=== PATIENT | male | born 1975 | race Hispanic/Latino ===

== ENCOUNTER 2019-07-21 11:55 | Inpatient (IN) | payer SELFPAY ==
[2019-07-21 12:50] LABS: #Basophils 0.1 thou/uL (0.0-0.2); #Eosinphils 0.2 thou/uL (0.0-0.7); #Lymphocytes 1.3 thou/uL (1.20-3.40); #Monocytes 0.4 thou/uL (0.11-0.59); #Neutrophils 4.4 thou/uL (1.40-6.50); %Basophils 1.2 % (0.0-1.0); %Eosinophils 3.5 % (0.0-10.0); %Lymphocytes 19.8 % (21.0-51.0); %Monocytes 6.7 % (0.0-10.0); %Neutrophils 68.8 % (42.0-75.0); Hemoglobin 7.9 g/dL (14.0-18.0); Mean Corpuscular HGB CONC 34.2 g/dL (32.0-36.0); Mean Corpuscular Hemoglobin 30.3 pg (27.0-31.0); Mean Corpuscular Volume 88.7 fL (78.0-98.0); Mean Platelet Volume 7.2 fL (7.4-10.4); Platelet Count 288 thou/uL (130-400); RBC Distribution Width 12.9 % (11.5-14.5); Red Blood Cell (RBC) Count 2.62 mill/uL (4.70-6.10); White Blood Cell (WBC) Count 6.4 thou/uL (4.8-10.8)
[2019-07-21 13:14] LABS: ALT (SGPT) 9 U/L (8-55); AST (SGOT) 12 U/L (5-34); Albumin 3.2 g/dL (3.5-5.0); Alkaline Phosphatase 131 U/L (40-150); Anion Gap 19 mmol/L (10-20); BUN (Urea Nitrogen) 112 mg/dL (8.9-20.6); Bilirubin, Total 0.3 mg/dL (0.2-1.2); Calc. Creatinine Clearance 0 mL/min (70-130); Calcium 6.4 mg/dL (7.8-10.44); Carbon Dioxide 13 mmol/L (22-29); Chloride 110 mmol/L (98-107); Estimated GFR-MDRD 6; Globulin 2.6 g/dL (2.4-3.5); Glucose 130 mg/dL (70-105); Potassium 5.8 mmol/L (3.5-5.1); Protein, Total 5.8 g/dL (6.0-8.3); Sodium 136 mmol/L (136-145)
[2019-07-21] MEDS ORDERED: CEFAZOLIN 2 GM in Premix Bag 1 BAG IVPB SCH (14:30)
--- NOTE | 2019-07-21 14:30 | CON ---
DATE OF CONSULTATION: REASON FOR CONSULTATION: Hyperkalemia. HISTORY OF PRESENTING ILLNESS: This is a very pleasant 44-year-old gentleman, being seen in the [facility] with progressive rise in creatinine due to diabetes mellitus. His baseline creatinine was 1.8, has progressively increased to 9. The patient has no headache, numbness, tingling, or weakness. Denies any nausea, vomiting, or chest pain. PAST MEDICAL HISTORY: Hypertension, hyperlipidemia, chronic kidney disease. MEDICATIONS: Home medication list, reviewed. Hospital medication list, reviewed. ALLERGIES: REVIEWED. REVIEW OF SYSTEMS: A 15-point review of system was performed, negative except for positive noted above. GENERAL: Appetite is poor. HEAD: NECK: No swelling or lumps. NOSE: No epistaxis or discharge. EYES: No diplopia or pain. RESPIRATORY: CARDIOVASCULAR: Has dyspnea on minimal exertion. 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 NEUROPSYCHIATIC SYSTEMS: No suicidal ideation. No ideation. SKIN: Denies any rash or ulcer. CONSTITUTIONAL: No fever or chills. PHYSICAL EXAMINATION: GENERAL: The patient is awake and alert. VITAL SIGNS: Afebrile, pulse 75, breathing 16, blood pressure was 160/70. GENERAL APPEARANCE AND MENTAL STATUS: Fair. HEAD/NECK: Normocephalic. Atraumatic. EYES: EOMI. No deformity. EARS: Clear. No ulcers. NOSE: Intact. No lesions. MOUTH: Clear. No discharge. THROAT: Clear. No exudate. LUNGS: Clear. No crackles. CARDIAC: S1, S2. No rub. ABDOMEN: Benign. Bowel sounds positive. GENITALIA/RECTUM: Ardon absent. BACK/EXTREMITIES: He has edema. NEUROLOGICAL: Alert and motor intact. SKIN: LYMPHATICS: LABORATORY DATA: Showed creatinine 9. ASSESSMENT AND PLAN: 1. Stage 6 chronic kidney disease with hyperkalemia, plan urgent dialysis. 2. Hyperkalemia, plan dialysis. 3. Metabolic acidosis, plan dialysis. The patient will need outpatient consultation for peritoneal dialysis catheter placement. Job ID: [id number]
[2019-07-21 14:32] LABS: INR-International Normal Ratio 1.4; PTT 31.8 SEC (22.9-36.1); Prothrombin Time 16.8 SEC (12.0-14.7)
[2019-07-21 17:42] LABS: Hep B Surf Ag Non-Reactive S/CO (NonReactive)
[2019-07-21 17:43] LABS: HBSAg Index 0.13 S/CO (0-0.99); Hep B Surf AB Non-Reactive (NonReactive)
[2019-07-21 17:44] LABS: HBSAB Concentration 0.13 mIU/mL
--- NOTE | 2019-07-21 17:49 | OP ---
DATE OF PROCEDURE: 07/21/2019 PREOPERATIVE DIAGNOSES: End-stage renal disease, not yet started dialysis. Hyperkalemia, potassium 5.8, in need of acute dialysis. POSTOPERATIVE DIAGNOSES: End-stage renal disease, not yet started dialysis. Hyperkalemia, potassium 5.8, in need of acute dialysis. PROCEDURE PERFORMED: Right femoral vein hemodialysis catheter, Trialysis. ANESTHESIA: 1% Xylocaine. DESCRIPTION OF PROCEDURE: With the patient at bedside, right groin was clipped of hair, prepared with ChloraPrep and draped in routine fashion. 1% Xylocaine was infiltrated in the skin and subcutaneous tissue about the operative site. Femoral vein was cannulated with a trocar catheter, J-wire threaded, and trocar catheter removed. Skin site was enlarged sharply. Small and medium size dilators were placed and removed in the femoral vein. Distal port of the Trialysis catheter was placed with a J-wire in the femoral vein and J-wire removed. Each port filled with blood and flushed with heparinized saline solution. Catheter was secured with 2 interrupted suture of 3-0 nylon. Sterile dressing applied. The patient tolerated the procedure well. Job ID: [id number]
[2019-07-21] MEDS ORDERED: Dextrose 50% Abboject 50 ML SYRINGE SLOW IVP PRN (18:37)
[2019-07-21] MEDS ORDERED: Dextrose 5% in Water 1,000 ML IV PRN (18:37)
[2019-07-21] MEDS ORDERED: HumaLOG 300 UNITS/3 ML VIAL SC PRN (18:37)
[2019-07-21] MEDS ORDERED: Senokot S 8.6-50 MG TAB PO PRN (18:40)
[2019-07-21] MEDS ORDERED: Acetaminophen 325 MG TAB PO PRN (18:40)
[2019-07-21] MEDS ORDERED: HYDROcodone/Acetaminophen 5/325 mg Tablet PO PRN (18:40)
[2019-07-21] MEDS: cloNIDine 0.1 MG TAB PO PRN (20:05)
--- NOTE | 2019-07-21 22:38 | HP ---
HISTORY OF PRESENT ILLNESS: Wilson Noyola is a 44-year-old male, who presented to the emergency room. He saw his family care physician, who referred him to Dr. Antonio, who sent him immediately to the emergency room due to worsening kidney failure in need of dialysis access. His potassium is 5.8. Plan is to place temporary dialysis catheter today and initiate dialysis and a cuffed tunneled dialysis catheter and central line tomorrow. Next, we will plan laparoscopic PD catheter in right or left arm fistula pending vein mapping. He understands the risks and benefits of procedure and consents. ALLERGIES: NONE. SOCIAL HISTORY: Tobacco, none. Alcohol, none for 3 years, abused prior to that. MEDICATIONS: List not available. PAST SURGICAL HISTORY: Noncontributory. PAST MEDICAL HISTORY: Diabetes mellitus, insulin dependent; and hypertension. REVIEW OF SYSTEMS: Ten-point noncontributory. The patient is , lives alone. 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 PHYSICAL EXAMINATION: VITAL SIGNS: Blood pressure 147/73 and respiratory rate 18. HEAD, EARS, EYES, NOSE, AND THROAT: Unremarkable. Sclerae are nonicteric. SKIN: Nonjaundiced. LUNGS: Clear to auscultation. CARDIAC: Regular rate and rhythm. No murmur or gallop. ABDOMEN: Soft and nontender. No mass. No umbilical hernias. No groin hernias. EXTREMITIES: Unremarkable. Palpable radial pulses bilaterally. LABORATORY DATA: White count 6 and hemoglobin 7.9. Sodium 136, potassium 5.8, BUN 112, creatinine 10.35, and GFR 6. ASSESSMENT AND PLAN: End-stage renal disease, in need of dialysis access. We will plan placement of a temporary hemodialysis catheter at bedside to initiate dialysis tonight due to potassium of 5.8. We will plan placement of cuffed tunneled hemodialysis catheter tomorrow as well as central line to protect his veins. We will obtain ultrasound vein mapping of both arms and plan placement of a left or right arm fistula and laparoscopic PD catheter next week. Risks and benefits explained and questions answered. Job ID: [id number]
[2019-07-21] MEDS: Labetalol HCl 100 MG/20 ML VIAL SLOW IVP PRN (23:07)
--- NOTE | 2019-07-22 00:19 | ULT ---
Ultrasound Doppler duplex venous bilateral upper extremities: (Hemodialysis access surgical planning vessel mapping) DATE: 07/21/2019 Time: 10:54 PM HISTORY: 44-year-old end-stage renal disease male requiring hemodialysis access. FINDINGS: Calibers are given in millimeters RIGHT: Brachial artery: 5.5 Radial artery: 2 Ulnar artery: 2 Cephalic vein: Proximal arm: 2 Mid arm: 2 Distal arm: 2 Antecubital: 3.5 Proximal forearm: 1.5 Mid forearm: 1.5 Distal forearm: 1.5 Basilic vein: Proximal arm: 4.5 Mid arm: 4 Distal arm: 4 Antecubital: 3.5 Proximal forearm: 2 Mid forearm: 1.5 Forearm: 1 LEFT: Brachial artery: 4.5 Radial artery: 2 Ulnar artery: 2 Cephalic vein: Proximal arm: 2.5 Mid arm: 2.5 Distal arm: 3. Antecubital: 5 Proximal forearm: 1.5 Mid forearm: 2 Distal forearm: 1.5 Basilic vein: Proximal arm: 4.5 Mid arm: 3.5 Distal arm: 4 Antecubital: 3 Proximal forearm: 2 Mid forearm: 1 Distal forearm: 1 IMPRESSION: The bilateral arm basilic veins are greater than 3 mm in caliber.
--- NOTE | 2019-07-22 01:35 | HP ---
CHIEF COMPLAINT: Decreased kidney function. PRIMARY CARE PROVIDER: Dr. Arrington. HISTORY OF PRESENT ILLNESS: This is a very pleasant 44-year-old gentleman seen Dr. Antonio in the clinic for chronic kidney disease, noted to have progression in the rise of his creatinine due to diabetes mellitus. His baseline creatinine was 1.8 and has progressively increased to 9. The patient denies any headache, numbness, tingling, weakness, any nausea, vomiting, or chest pain. Past medical history is pertinent for hypertension, hyperlipidemia, and chronic kidney disease, was sent to the emergency room today for emergent dialysis catheter placement and dialysis by Dr. Antonio's office, Doctor mika did see the patient in the emergency room and placed a right femoral vein hemodialysis catheter and he was taken to dialysis tonight. Dr. Meier requested the patient be taken to dialysis in the morning as well. Dr. Meier plans to take him to the OR tomorrow for potentially a new or more permanent catheter for hemodialysis and then at some point be evaluated for peritoneal dialysis catheter placement. The patient will be admitted to the hospital for further management. REVIEW OF SYSTEMS: GENERAL: Poor appetite. Denies any shortness of breath. Reports that he is in no distress. Has no pain. Denies any cough, cold, or congestion. All other systems reviewed and are negative unless mentioned in the HPI. PAST MEDICAL HISTORY: Pertinent for diabetes type 2 on insulin and hypertension. He is not currently aware of his medications that he takes. PAST SURGICAL HISTORY: None. PSYCHIATRIC HISTORY: None. SOCIAL HISTORY: The patient lives at home. He has no smoking history. Denies any alcohol or drug use. ALLERGIES: NONE. MEDICATIONS: Current medications what he is aware of; he takes Novolin R 10 units b.i.d., also reports that he takes two medications for his blood pressure, but he is not sure which ones they are. These will need to be reconciled and restarted. PHYSICAL EXAMINATION: VITAL SIGNS: Blood pressure 153/87, pulse 78, respirations 17, temperature is 97.4, and pO2 sats 100% on room air. GENERAL: The patient appears nontoxic. The patient appears pain free. He is alert and oriented to person, place, and time. HEENT: Head is atraumatic and normocephalic. Eyes; eyelids normal to inspection. Pupils are equal, round, and reactive to light. ENT; mucous membranes are moist. Mouth exam is normal. NECK: Normal range of motion. Trachea is midline. RESPIRATORY/CHEST: Breath sounds are clear. No findings of any respiratory distress. CARDIOVASCULAR: Regular heart rate and rhythm. Heart sounds are normal. ABDOMEN: Nontender. Bowel sounds are heard. BACK: Normal range of motion. No tenderness. EXTREMITIES: Upper extremity; range of motion is normal. Motor strength is normal. Sensation intact. Radial pulses are equal bilaterally. Lower extremity, normal range of motion. Motor strength is normal. Sensation intact. Pedal pulses are normal. NEUROLOGIC: The patient is oriented to person, place, and time. Speech is normal. SKIN: Warm and dry. Normal in color. LABORATORY DATA: EKG in the emergency room shows, rate per minute 78, normal sinus rhythm, ST segments T-waves are normal. There is a prolonged QT. Labs were reviewed. White blood cells 6.4, red blood cell 6.2, hemoglobin 7.9, and hematocrit is 23.2. Coagulation; PT 16.8, INR is 1.4, and APTT is 31.8. Chemistry with potassium 5.8, chloride 110, carbon dioxide is 13, gap is 19, BUN is 112, creatinine is 10.35, estimated GFR is 6, glucose 130, calcium 6.4, serum protein 5.8, albumin is 3.2. Hep B antigen nonreactive, antibody nonreactive, index is 0.13. ASSESSMENT AND PLAN: 1. End-stage chronic kidney disease, requiring emergent dialysis. Catheter was placed in the emergency room by Dr. Meier. The patient is currently undergoing dialysis and repeat this in the morning. He is on the schedule for sometime tomorrow for a more permanent hemodialysis catheter and at some point, will need is requesting peritoneal dialysis. It is unclear whether he will have that tomorrow or at another date. 2. Hypertension. We need to reconcile his home medications and get those restarted in the meantime. We will give him a trend and add p.r.n. medications as needed. 3. Diabetes mellitus type 2. Add sliding scale for coverage, a.c. and at bedtime checks. We will restart home medications once reconciled. GI prophylaxis has been started. 4. Deep venous thrombosis prophylaxis with SCDs. Dr. Antonio has already been consulted. We have also consulted Dr. Meier for catheter placement and management. Job ID: [id number]
[2019-07-22] MEDS: cloNIDine 0.1 MG TAB PO PRN ×2 (05:07→20:21)
[2019-07-22] MEDS: HYDROcodone/Acetaminophen 5/325 mg Tablet PO PRN (05:07)
[2019-07-22 05:10] LABS: #Basophils 0.1 thou/uL (0.0-0.2); #Eosinphils 0.2 thou/uL (0.0-0.7); #Lymphocytes 0.8 thou/uL (1.20-3.40); #Monocytes 0.4 thou/uL (0.11-0.59); #Neutrophils 3.8 thou/uL (1.40-6.50); %Basophils 1.1 % (0.0-1.0); %Eosinophils 3.6 % (0.0-10.0); %Lymphocytes 14.3 % (21.0-51.0); %Monocytes 7.5 % (0.0-10.0); %Neutrophils 73.5 % (42.0-75.0); Hemoglobin 7.8 g/dL (14.0-18.0); Mean Corpuscular HGB CONC 34.5 g/dL (32.0-36.0); Mean Corpuscular Hemoglobin 30.4 pg (27.0-31.0); Mean Corpuscular Volume 88.2 fL (78.0-98.0); Mean Platelet Volume 7.2 fL (7.4-10.4); Platelet Count 286 thou/uL (130-400); RBC Distribution Width 12.8 % (11.5-14.5); Red Blood Cell (RBC) Count 2.57 mill/uL (4.70-6.10); White Blood Cell (WBC) Count 5.2 thou/uL (4.8-10.8)
[2019-07-22 05:30] LABS: Anion Gap 17 mmol/L (10-20); BUN (Urea Nitrogen) 73 mg/dL (8.9-20.6); Calc. Creatinine Clearance 16 mL/min (70-130); Calcium 6.7 mg/dL (7.8-10.44); Carbon Dioxide 19 mmol/L (22-29); Chloride 109 mmol/L (98-107); Estimated GFR-MDRD 8; Glucose 105 mg/dL (70-105); Potassium 3.7 mmol/L (3.5-5.1); Sodium 141 mmol/L (136-145)
[2019-07-22] MEDS: Famotidine 20 MG TAB PO SCH (08:50)
[2019-07-22] MEDS ORDERED: Tuberculin PPD 0.1 ML VIAL I-DERMAL SCH (10:00)
--- NOTE | 2019-07-22 10:37 | PRG ---
DATE OF SERVICE: 07/22/2019 SUBJECTIVE: This is a 44-year-old gentleman, being seen for end-stage renal disease. The patient denies any nausea, vomiting, or chest pain. OBJECTIVE: CONSTITUTIONAL: The patient is awake, alert. VITAL SIGNS: Afebrile, pulse 95, breathing 16, blood pressure was 161/80. GENERAL APPEARANCE AND MENTAL STATUS: Fair. HEAD/NECK: Normocephalic. Atraumatic. EYES: EOMI. No deformity. EARS: Clear. No ulcers. NOSE: Intact. No lesions. MOUTH: Clear. No discharge. THROAT: Clear. No exudate. LUNGS: Clear. No crackles. CARDIAC: S1, S2. No rub. ABDOMEN: Benign. Bowel sounds positive. GENITALIA/RECTUM: Ardon absent. BACK/EXTREMITIES: Edema 0+. NEUROLOGICAL: Alert and motor intact. SKIN: LYMPHATICS: LABORATORY DATA: Reviewed. ASSESSMENT AND PLAN: 1. Stage 6 chronic kidney disease, plan dialysis. 2. Hypertension, stable. 3. Anemia, stable. 4. Discharge planning is in progress. Job ID: [id number]
--- NOTE | 2019-07-22 14:35 | PRG ---
DATE OF SERVICE: 07/22/2019 SUBJECTIVE: The patient is seen and examined at the bedside. He complains about some nausea in the morning. He does not vomit. He does not have any abdominal pain. OBJECTIVE: VITAL SIGNS: Blood pressure is 162/82, pulse is 78, temperature is 97.6, respiratory rate is 14, O2 saturation is 99% on room air. HEENT: His head is atraumatic and normocephalic. Eyes are PERRLA. Sclerae are nonicteric. Oral mucosa is moist. NECK: Supple. LUNGS: Clear. HEART: S1 and S2 normal. No S3. No S4. No any murmur. ABDOMEN: Soft and nontender. Bowel sounds are present. No organomegaly. Right groin, a catheter is in place for his hemodialysis. EXTREMITIES: No clubbing or cyanosis. A 1+ peripheral edema, similar bilateral on both lower extremities. NEUROLOGIC: He is alert and oriented x4. There are no any motor or sensory deficits. LABORATORY DATA: Labs showed white count of 5.2, hemoglobin 7.8, hematocrit 22.6, platelet count is 286,000. Sodium of 141, potassium 3.7, chloride 109, CO2 of 19, BUN 73, creatinine 7.52, glycemia is ranging from 96 to 156, calcium is 6.7. IMPRESSION: 1. Acute on chronic renal failure. The patient at this point requires hemodialysis. The catheter was placed in his right groin by Dr. Meier in the emergency room and he is getting dialysis through that catheter, and he is going to have hemodialysis catheter placed today. 2. Diabetes mellitus. 3. Hypertension, improving. 4. Hyperkalemia, corrected with dialysis. PLAN: As mentioned above, continue dialysis through the temporary access through the right groin. Today, he is going to have a permanent catheter placed. We will put him on Zofran p.r.n. as needed for his nausea in the mornings, and we will check his iron studies and albumins with urine. I presume that he has hypoalbuminemia, which is causing his hypocalcemia and I presume that his ionized calcium is not that low because he is asymptomatic. Job ID: [id number]
[2019-07-22] MEDS ORDERED: Heparin 10,000 UNITS/1 ML VIAL ONE (15:00)
[2019-07-22] MEDS: HumaLOG 300 UNITS/3 ML VIAL SC PRN (20:33)
[2019-07-22] MEDS: Labetalol HCl 100 MG/20 ML VIAL SLOW IVP PRN (23:25)
[2019-07-23 05:34] LABS: #Basophils 0.1 thou/uL (0.0-0.2); #Eosinphils 0.1 thou/uL (0.0-0.7); #Lymphocytes 1.1 thou/uL (1.20-3.40); #Monocytes 0.4 thou/uL (0.11-0.59); #Neutrophils 3.6 thou/uL (1.40-6.50); %Basophils 1.3 % (0.0-1.0); %Eosinophils 2.3 % (0.0-10.0); %Monocytes 7.5 % (0.0-10.0); %Neutrophils 67.9 % (42.0-75.0); Hemoglobin 8.1 g/dL (14.0-18.0); Mean Corpuscular HGB CONC 33.4 g/dL (32.0-36.0); Mean Corpuscular Hemoglobin 30.2 pg (27.0-31.0); Mean Corpuscular Volume 90.4 fL (78.0-98.0); Mean Platelet Volume 7.3 fL (7.4-10.4); Platelet Count 295 thou/uL (130-400); RBC Distribution Width 12.8 % (11.5-14.5); Red Blood Cell (RBC) Count 2.68 mill/uL (4.70-6.10); White Blood Cell (WBC) Count 5.2 thou/uL (4.8-10.8)
[2019-07-23] MEDS: Ondansetron PF 4 MG/2 ML Vial IVP PRN (06:21)
[2019-07-23] MEDS: Famotidine 20 MG TAB PO SCH (11:17)
[2019-07-23] MEDS: cloNIDine 0.1 MG TAB PO PRN ×2 (11:17→21:43)
[2019-07-23] MEDS ORDERED: Ergocalciferol 1.25 MG(50,000 UNITS) CAP PO SCH (11:45)
[2019-07-23] MEDS ORDERED: Epoetin (ESRD) 10,000 UNITS/ML VIAL SC SCH (12:00)
--- NOTE | 2019-07-23 12:21 | PRG ---
DATE OF SERVICE: 07/23/2019 SUBJECTIVE: This is a 44-year-old gentleman, being seen for end-stage kidney disease. The patient denied nausea, vomiting, or chest pain. OBJECTIVE: GENERAL: The patient is awake and alert. VITAL SIGNS: Afebrile, pulse 72, breathing 16, blood pressure 162/83. GENERAL APPEARANCE AND MENTAL STATUS: Fair. HEAD/NECK: Normocephalic. Atraumatic. EYES: EOMI. No deformity. EARS: Clear. No ulcers. NOSE: Intact. No lesions. MOUTH: Clear. No discharge. THROAT: Clear. No exudate. LUNGS: Clear. No crackles. CARDIAC: S1, S2. No rub. ABDOMEN: Benign. Bowel sounds positive. GENITALIA/RECTUM: Ardon absent. BACK/EXTREMITIES: Edema 0+. NEUROLOGICAL: Alert and motor intact. SKIN: LYMPHATICS: LABORATORY DATA: Showed hemoglobin is 8.1. Creatinine is pending. ASSESSMENT AND PLAN: 1. Stage 6 chronic kidney disease, plan dialysis. 2. Hypertension, stable. 3. Anemia, stable. 4. Hypocalcemia. We will check vitamin D and PTH levels. Job ID: [id number]
[2019-07-23 12:53] LABS: Anion Gap 11 mmol/L (10-20); BUN (Urea Nitrogen) 17 mg/dL (8.9-20.6); Calc. Creatinine Clearance 33 mL/min (70-130); Calcium 8.2 mg/dL (7.8-10.44); Carbon Dioxide 30 mmol/L (22-29); Chloride 103 mmol/L (98-107); Estimated GFR-MDRD 20; Glucose 145 mg/dL (70-105); Sodium 140 mmol/L (136-145)
--- NOTE | 2019-07-23 13:30 | PRG ---
DATE OF SERVICE: 07/23/2019 SUBJECTIVE: The patient is seen and examined at the bedside. He just came back from hemodialysis. He started having some muscle cramps during dialysis, most likely related to his hypocalcemia. Yesterday, he was asymptomatic. OBJECTIVE: VITAL SIGNS: Blood pressure is 174/90, pulse is 82, respiratory rate is 18, O2 saturation is 100% on room air, temperature is 98.2, the maximal temperature is 98.4. HEENT: His head is atraumatic and normocephalic. Eyes are PERRLA. Sclerae are nonicteric. Oral mucosa is moist. NECK: Supple. LUNGS: Clear. HEART: S1 and S2 normal. ABDOMEN: Soft, nontender, nondistended. EXTREMITIES: No clubbing, cyanosis, or edema. : There is a dialysis catheter in the right groin. NEUROLOGICAL: He is alert and oriented x4. There are no any motor or sensory deficits. LABORATORY DATA: Labs showed white count of 5.2, hemoglobin 8.1, hematocrit 24.2, platelet count 295,000. Sodium 140, potassium 4.0, chloride 103, CO2 of 30, BUN 17, creatinine 3.33, glycemia is ranging from 137 to 189, calcium is 8.2. IMPRESSION AND PLAN: 1. Acute on chronic renal failure. The patient is started on dialysis. Dialysis catheter placement is scheduled for Thursday. 2. Hypocalcemia, symptomatic. Started on vitamin D and calcium by pace analyst, Dr. Antonio. 3. Diabetes mellitus type 2. 4. Hypertension. We will make some adjustment to his medications since his blood pressure has improved, but not good yet. 5. Hyperkalemia corrected with dialysis. 6. Normocytic anemia most likely related to his renal failure. Job ID: [id number]
[2019-07-23] MEDS: HYDROcodone/Acetaminophen 5/325 mg Tablet PO PRN (14:30)
[2019-07-23] MEDS: Calcium Carbonate 500 MG ChewTAB PO SCH (21:43)
[2019-07-23] MEDS: HumaLOG 300 UNITS/3 ML VIAL SC PRN (21:44)
[2019-07-24] MEDS: Calcium Carbonate 500 MG ChewTAB PO SCH ×2 (08:33→20:16)
[2019-07-24] MEDS: Famotidine 20 MG TAB PO SCH (08:33)
[2019-07-24] MEDS ORDERED: READ PPD TEST SITE PO SCH (09:00)
--- NOTE | 2019-07-24 15:38 | PDOC.HOSPP ---
- Subjective Encounter Date: 07/24/19 Encounter Time: 15:36 Subjective: heading for dialysis - Objective Vital Signs & Weight: Vital Signs (12 hours) Temp Pulse Resp BP BP Pulse Ox 07/24/19 08:00 97.4 F L 74 17 168/92 H 100 07/24/19 03:45 98.5 F 73 14 159/89 H 100 Weight Admit Weight 189 lb 4.8 oz Weight 176 lb I&O: 07/23/19 07/24/19 07/25/19 06:59 06:59 06:59 Intake Total 540 1200 Output Total 600 2600 Balance -60 -1400 Result Diagrams: 07/23/19 05:00 07/23/19 12:09 Additional Labs: Accuchecks 07/24/19 07/23/19 07/23/19 05:54 20:24 16:47 POC Glucose 171 H 215 H 232 H Hospitalist ROS - Medication Medications: Active Medications Generic Name Dose Route Start Last Admin Trade Name Freq PRN Reason Stop Dose Admin Hydrocodone Bitart/Acetaminophen 2 tab 07/21/19 18:40 07/23/19 14:30 Mcarthur 5/325 PO 2 tab Q4H PRN Administration Severe Pain (7-10) Calcium Carbonate 1,000 mg 07/23/19 21:00 07/24/19 08:33 Tums PO 1,000 mg BID ANDREA Administration Clonidine 0.1 mg 07/21/19 18:39 07/23/19 21:43 Catapres PO 0.1 mg Q4H PRN Administration SBP Greater Than 180 Famotidine 20 mg 07/22/19 09:00 07/24/19 08:33 Pepcid PO 20 mg DAILY ANDREA Administration Insulin Human Lispro 0 units 07/21/19 18:37 07/23/19 21:44 Humalog SC 3 unit .MILD SLIDING SCALE PRN Administration Mild Correctional Scale Labetalol HCl 20 mg 07/21/19 18:39 07/22/19 23:25 Normodyne SLOW IVP 20 mg Q4H PRN Administration SBP > 180 and HR >/= 70 Ondansetron HCl 4 mg 07/23/19 05:47 07/23/19 06:21 Zofran IVP 4 mg Q6H PRN Administration Nausea/Vomiting Tuberculin PPD 0.1 ml 07/22/19 10:00 07/22/19 12:06 Tuberculin Ppd I-DERMAL 07/25/19 10:01 0.1 ml ONE ANDREA Administration - Exam Eye: PERRL, anicteric sclera ENT: normocephalic atraumatic, no oropharyngeal lesions Neck: supple, symmetric, no JVD Heart: RRR, no murmur, no gallops Respiratory: CTAB, no wheezes, no rales Gastrointestinal: soft, non-tender, non-distended Extremities: 1+ LE edema Neurological: CN's grossly intact, normal sensation to touch, no focal deficits , no new deficit Musculoskeletal: normal tone, normal strength Psychiatric: normal affect, normal behavior, A&O x 3, oriented to place, oriented to time Hosp A/P (1) ESRD (end stage renal disease) on dialysis Code(s): N18.6 - END STAGE RENAL DISEASE; Z99.2 - DEPENDENCE ON RENAL DIALYSIS Status: Acute Plan: Patient started on hemodialysis to address the volume overload and electrolyte disturbance. Potassium corrected with dialysis, HD catheter placement planned for Thursday (2) Volume overload Code(s): E87.70 - FLUID OVERLOAD, UNSPECIFIED Status: Acute (3) Hypocalcemia Code(s): E83.51 - HYPOCALCEMIA Status: Acute Plan: replace with Vit D and CALIUM (4) Diabetes Code(s): E11.9 - TYPE 2 DIABETES MELLITUS WITHOUT COMPLICATIONS Status: Acute Plan: Continue insulin, diabetic diet and accuchecks with SS (5) Essential hypertension Code(s): I10 - ESSENTIAL (PRIMARY) HYPERTENSION Status: Acute Plan: continue antihypertensives - Plan DVT proph w/SCDs
[2019-07-24] MEDS: cloNIDine 0.1 MG TAB PO PRN (20:16)
--- NOTE | 2019-07-25 00:48 | PRG ---
DATE OF SERVICE: 07/24/2019 SUBJECTIVE: This is a 44-year-old gentleman, being seen for end-stage renal disease. The patient denied any nausea, vomiting, or chest pain. OBJECTIVE: GENERAL: Awake, alert, in no acute distress. VITAL SIGNS: Afebrile, pulse 72, breathing 16, blood pressure 152/86. GENERAL APPEARANCE AND MENTAL STATUS: Fair. HEAD/NECK: Normocephalic. Atraumatic. EYES: EOMI. No deformity. EARS: Clear. No ulcers. NOSE: Intact. No lesions. MOUTH: Clear. No discharge. THROAT: Clear. No exudate. LUNGS: Clear. No crackles. CARDIAC: S1, S2. No rub. ABDOMEN: Benign. Bowel sounds positive. GENITALIA/RECTUM: Ardon absent. BACK/EXTREMITIES: Edema 0+. NEUROLOGICAL: Alert and motor intact. SKIN: LYMPHATICS: LABORATORY DATA: Reviewed. ASSESSMENT AND PLAN: 1. Stage 6 chronic kidney disease, plan dialysis tomorrow. 2. Hypertension, stable. 3. Anemia, stable. 4. Medications based on GFR, appropriate. 5. Discharge planning is in progress. Job ID: [id number]
[2019-07-25] MEDS: Calcium Carbonate 500 MG ChewTAB PO SCH ×2 (08:34→20:44)
[2019-07-25] MEDS: Famotidine 20 MG TAB PO SCH (08:34)
[2019-07-25] MEDS: cloNIDine 0.1 MG TAB PO PRN ×2 (08:35→20:44)
[2019-07-25] MEDS ORDERED: Heparin 10,000 UNITS/ 10 ML VIAL ONE (10:00)
[2019-07-25] MEDS: HumaLOG 300 UNITS/3 ML VIAL SC PRN (11:23)
--- NOTE | 2019-07-25 15:04 | PRG ---
DATE OF SERVICE: 07/25/2019 SUBJECTIVE: Patient was seen and examined at bedside and overnight events noted. Patient denies any shortness of breath or chest pain or palpitation. No history of nausea or vomiting or diarrhea or fever or chills or cramps. OBJECTIVE: GENERAL: This is a well-built male, in no apparent distress. VITAL SIGNS: Temperature 97.2, heart rate , respiratory rate and blood pressure 120/75. HEENT: Atraumatic, normocephalic. Oral mucosa is moist NECK: Supple. CARDIOVASCULAR: S1, S2 heard. Rate and rhythm regular. RESPIRATORY: Clear to auscultation. GASTROINTESTINAL: Abdomen is soft. MUSCULOSKELETAL: No tenderness. No edema. DERMATOLOGIC: No skin rash. NEUROLOGIC: Alert and awake and oriented X3. No focal neurologic deficits. Moving all the extremities. PSYCHIATRIC: Mood and affect normal. LABORATORY DATA: Not done today. ASSESSMENT AND PLAN: 1. End-stage renal disease. Continue dialysis as tolerated. 2. Hypertension. 3. Anemia. 4. Edema, controlled. PLAN: To continue on dialysis as tolerated. Job ID: [id number]
--- NOTE | 2019-07-25 15:44 | PDOC.HOSPP ---
- Subjective Encounter Date: 07/25/19 Encounter Time: 15:42 Subjective: ABD CRAMPS - Objective Vital Signs & Weight: Vital Signs (12 hours) Temp Pulse Resp BP BP Pulse Ox 07/25/19 12:00 97.2 F L 77 18 126/75 99 07/25/19 08:35 181/92 H 07/25/19 08:00 98.3 F 72 17 181/72 H 98 07/25/19 04:00 98 F 78 16 142/86 H 99 Weight Admit Weight 189 lb 4.8 oz Weight 181 lb 3.52 oz I&O: 07/24/19 07/25/19 07/26/19 06:59 06:59 06:59 Intake Total 1200 840 Output Total 2600 275 Balance -1400 565 Result Diagrams: 07/23/19 05:00 07/23/19 12:09 Additional Labs: Accuchecks 07/25/19 07/25/19 07/24/19 10:51 05:27 20:18 POC Glucose 229 H 146 H 209 H 07/24/19 07/24/19 17:00 11:50 POC Glucose 144 H 181 H Hospitalist ROS - Medication Medications: Active Medications Generic Name Dose Route Start Last Admin Trade Name Freq PRN Reason Stop Dose Admin Hydrocodone Bitart/Acetaminophen 2 tab 07/21/19 18:40 07/23/19 14:30 [place] 5/325 PO 2 tab Q4H PRN Administration Severe Pain (7-10) Calcium Carbonate 1,000 mg 07/23/19 21:00 07/25/19 08:34 Tums PO 1,000 mg BID ANDREA Administration Clonidine 0.1 mg 07/21/19 18:39 07/25/19 08:35 Catapres PO 0.1 mg Q4H PRN Administration SBP Greater Than 180 Famotidine 20 mg 07/22/19 09:00 07/25/19 08:34 Pepcid PO 20 mg DAILY ANDREA Administration Insulin Human Lispro 0 units 07/21/19 18:37 07/25/19 11:23 Humalog SC 3 unit .MILD SLIDING SCALE PRN Administration Mild Correctional Scale Labetalol HCl 20 mg 07/21/19 18:39 07/22/19 23:25 Normodyne SLOW IVP 20 mg Q4H PRN Administration SBP > 180 and HR >/= 70 Ondansetron HCl 4 mg 07/23/19 05:47 07/23/19 06:21 Zofran IVP 4 mg Q6H PRN Administration Nausea/Vomiting - Exam General Appearance: awake alert Eye: PERRL, anicteric sclera ENT: normocephalic atraumatic, no oropharyngeal lesions, moist mucosa Neck: supple, symmetric, no JVD, no thyromegaly, no lymphadenopathy Heart: RRR, no murmur, no gallops, no rubs, normal peripheral pulses Respiratory: CTAB, no wheezes, no rales, no ronchi, normal chest expansion Gastrointestinal: soft, non-tender, non-distended, normal bowel sounds, no palpable masses Extremities: no cyanosis, no clubbing, no edema Skin: normal turgor, no lesions, no rashes, tenting Neurological: CN's grossly intact, normal sensation to touch, no weakness Hosp A/P (1) ESRD (end stage renal disease) on dialysis Code(s): N18.6 - END STAGE RENAL DISEASE; Z99.2 - DEPENDENCE ON RENAL DIALYSIS Status: Acute (2) Volume overload Code(s): E87.70 - FLUID OVERLOAD, UNSPECIFIED Status: Acute (3) Hypocalcemia Code(s): E83.51 - HYPOCALCEMIA Status: Acute (4) Diabetes Code(s): E11.9 - TYPE 2 DIABETES MELLITUS WITHOUT COMPLICATIONS Status: Acute (5) Essential hypertension Code(s): I10 - ESSENTIAL (PRIMARY) HYPERTENSION Status: Acute - Plan ESRD with Volume overload and electrolyte disturbance: --Continue dialysis. renal diabetic diet --PD catheter placement in am --Continue home Insulin 70/30 and home anti hypertensives
[2019-07-25 16:10] LABS: #Basophils 0.1 thou/uL (0.0-0.2); #Eosinphils 0.3 thou/uL (0.0-0.7); #Lymphocytes 1.4 thou/uL (1.20-3.40); #Monocytes 0.4 thou/uL (0.11-0.59); #Neutrophils 3.9 thou/uL (1.40-6.50); %Basophils 1.4 % (0.0-1.0); %Eosinophils 4.8 % (0.0-10.0); %Lymphocytes 23.3 % (21.0-51.0); %Monocytes 6.9 % (0.0-10.0); %Neutrophils 63.6 % (42.0-75.0); Hemoglobin 7.8 g/dL (14.0-18.0); Mean Corpuscular HGB CONC 35.4 g/dL (32.0-36.0); Mean Corpuscular Hemoglobin 31.4 pg (27.0-31.0); Mean Corpuscular Volume 88.6 fL (78.0-98.0); Mean Platelet Volume 7.7 fL (7.4-10.4); Platelet Count 274 thou/uL (130-400); RBC Distribution Width 12.4 % (11.5-14.5); Red Blood Cell (RBC) Count 2.48 mill/uL (4.70-6.10); White Blood Cell (WBC) Count 6.1 thou/uL (4.8-10.8)
[2019-07-25 16:27] LABS: Anion Gap 15 mmol/L (10-20); BUN (Urea Nitrogen) 56 mg/dL (8.9-20.6); Calc. Creatinine Clearance 13 mL/min (70-130); Calcium 7.2 mg/dL (7.8-10.44); Carbon Dioxide 25 mmol/L (22-29); Chloride 100 mmol/L (98-107); Estimated GFR-MDRD 7; Glucose 148 mg/dL (70-105); Potassium 4.6 mmol/L (3.5-5.1); Sodium 135 mmol/L (136-145)
[2019-07-25] MEDS: HumuLIN 70/30 (300 UNITS/3 ML VIAL) SC SCH (20:44)
[2019-07-26] MEDS: Calcium Carbonate 500 MG ChewTAB PO SCH ×2 (08:29→20:41)
[2019-07-26] MEDS: Famotidine 20 MG TAB PO SCH (08:30)
[2019-07-26] MEDS: Amlodipine 10 MG TAB PO SCH (08:31)
[2019-07-26] MEDS ORDERED: Bupivacaine HCl 0.5%/Epinephrine 1:200,000/PF 30 ml Vial ONE ×2 (10:12→11:50)
[2019-07-26] MEDS ORDERED: Iothalamate Meglumine 60% 50 ML VIAL FS ONE (10:12)
[2019-07-26] MEDS ORDERED: Sodium Chloride 0.9% 0 ML ONE ×2 (10:12→11:50)
[2019-07-26] MEDS ORDERED: Heparin 5,000 UNITS/ML VIAL ONE ×2 (10:12→11:50)
[2019-07-26] MEDS ORDERED: Bupivacaine/Epinephrine 0.25% 30 ML VIAL ONE ×3 (10:12→12:55)
[2019-07-26] MEDS ORDERED: Heparin 10,000 UNITS/1 ML VIAL ONE ×2 (10:12→11:50)
[2019-07-26] MEDS ORDERED: Lidocaine 2% PF 5 ML VIAL ONE ×2 (10:12→11:50)
[2019-07-26] MEDS ORDERED: Protamine Sulfate 50 MG/5 ML VIAL ONE ×2 (10:12→11:50)
--- NOTE | 2019-07-26 10:31 | PRG ---
DATE OF SERVICE: 07/26/2019 SUBJECTIVE: Patient was seen and examined at bedside and overnight events noted. Patient denies any shortness of breath or chest pain or palpitation. No history of nausea or vomiting or diarrhea or fever or chills or cramps. OBJECTIVE: GENERAL: This is a well-built male, in no apparent distress. VITAL SIGNS: Temperature 98.3. Heart rate 67. Respiratory rate 18. Blood pressure 153/78. HEENT: Atraumatic, normocephalic. Oral mucosa is moist NECK: Supple. CARDIOVASCULAR: S1, S2 heard. Rate and rhythm regular. RESPIRATORY: Clear to auscultation. GASTROINTESTINAL: Abdomen is soft. MUSCULOSKELETAL: No tenderness. No edema. DERMATOLOGIC: No skin rash. NEUROLOGIC: Alert and awake and oriented X3. No focal neurologic deficits. Moving all the extremities. PSYCHIATRIC: Mood and affect normal. LABORATORY DATA: No labs done today. ASSESSMENT AND PLAN: 1. End-stage renal disease. Continue on dialysis. Follow with Case Management for outpatient placement. Okay to discharge from Nephrology standpoint once the dialysis chair is arranged. 2. Hypertension, stop hydrochlorothiazide. Increase losartan. We will also add Coreg as tolerated. 3. Anemia. Monitor hemoglobin. 4. Edema, controlled. 5. We will continue on dialysis as tolerated. Job ID: [id number]
[2019-07-26] MEDS ORDERED: Ioversol 68 % 50 ML VIAL ONE (11:50)
[2019-07-26] MEDS ORDERED: Fentanyl 100 MCG/2 ML VIAL ONE ×2 (11:59→14:30)
[2019-07-26] MEDS ORDERED: Sodium Chloride 0.9% 30 ML ONE (13:19)
--- NOTE | 2019-07-26 13:26 | PDOC.HOSPP ---
- Subjective Encounter Date: 07/26/19 Encounter Time: 13:24 Subjective: Hungry and is asking about procedure, PD catheter - Objective Vital Signs & Weight: Vital Signs (12 hours) Temp Pulse Resp BP BP BP Pulse Ox 07/26/19 11:39 98.2 F 69 18 164/86 H 07/26/19 08:31 67 168/93 H 07/26/19 08:00 99.3 F 67 18 168/93 H 98 07/26/19 04:00 98.3 F 67 17 153/78 H 100 Weight Admit Weight 189 lb 4.8 oz Weight 175 lb 8 oz I&O: 07/25/19 07/26/19 07/27/19 06:59 06:59 06:59 Intake Total 840 1080 30 Output Total 275 Balance 565 1080 30 Result Diagrams: 07/25/19 15:20 07/25/19 15:20 Additional Labs: Accuchecks 07/26/19 07/26/19 07/25/19 11:07 05:30 20:35 POC Glucose 117 H 172 H 270 H Hospitalist ROS - Medication Medications: Active Medications Generic Name Dose Route Start Last Admin Trade Name Freq PRN Reason Stop Dose Admin Hydrocodone Bitart/Acetaminophen 2 tab 07/21/19 18:40 07/23/19 14:30 [place] 5/325 PO 2 tab Q4H PRN Administration Severe Pain (7-10) Amlodipine Besylate 10 mg 07/26/19 09:00 07/26/19 08:31 Norvasc PO 10 mg DAILY ANDREA Administration Calcium Carbonate 1,000 mg 07/23/19 21:00 07/26/19 08:29 Tums PO 1,000 mg BID ANDREA Administration Clonidine 0.1 mg 07/21/19 18:39 07/25/19 20:44 Catapres PO 0.1 mg Q4H PRN Administration SBP Greater Than 180 Famotidine 20 mg 07/22/19 09:00 07/26/19 08:30 Pepcid PO 20 mg DAILY ANDREA Administration Insulin Human Isoph/Insulin Regular 10 units 07/25/19 21:00 07/25/19 20:44 Humulin 70/30 SC 10 unit QPM ANDREA Administration Insulin Human Lispro 0 units 07/21/19 18:37 07/25/19 11:23 Humalog SC 3 unit .MILD SLIDING SCALE PRN Administration Mild Correctional Scale Labetalol HCl 20 mg 07/21/19 18:39 07/22/19 23:25 Normodyne SLOW IVP 20 mg Q4H PRN Administration SBP > 180 and HR >/= 70 Ondansetron HCl 4 mg 07/23/19 05:47 07/23/19 06:21 Zofran IVP 4 mg Q6H PRN Administration Nausea/Vomiting - Exam General Appearance: awake alert Eye: PERRL, anicteric sclera ENT: normocephalic atraumatic, no oropharyngeal lesions, moist mucosa Neck: supple, symmetric, no JVD, no thyromegaly Heart: RRR, no murmur, no gallops, no rubs Respiratory: CTAB, no wheezes, no rales, no ronchi Gastrointestinal: soft, non-tender, non-distended, normal bowel sounds Extremities: no cyanosis, no clubbing, no edema Skin: normal turgor, no lesions, no rashes Neurological: CN's grossly intact, normal sensation to touch, no weakness Musculoskeletal: normal tone, normal strength, no muscle wasting Psychiatric: normal affect, normal behavior, A&O x 3, oriented to person Hosp A/P (1) ESRD (end stage renal disease) on dialysis Code(s): N18.6 - END STAGE RENAL DISEASE; Z99.2 - DEPENDENCE ON RENAL DIALYSIS Status: Acute (2) Volume overload Code(s): E87.70 - FLUID OVERLOAD, UNSPECIFIED Status: Acute (3) Hypocalcemia Code(s): E83.51 - HYPOCALCEMIA Status: Acute (4) Diabetes Code(s): E11.9 - TYPE 2 DIABETES MELLITUS WITHOUT COMPLICATIONS Status: Acute (5) Essential hypertension Code(s): I10 - ESSENTIAL (PRIMARY) HYPERTENSION Status: Acute - Plan ESRD with Volume overload and electrolyte disturbance: --Continue dialysis. renal diabetic diet --PD catheter placement planned for 07/26 --Continue home Insulin 70/30 and home anti hypertensives --SW on board to set up temporary OP HD dialysis
[2019-07-26] MEDS ORDERED: Acetaminophen 500 MG TAB PO PRN (14:21)
--- NOTE | 2019-07-26 14:43 | RAD ---
Chest AP view INDICATION: Central line placement COMPARISON: January 18, 2009 FINDINGS: Lungs:Bibasilar atelectasis; low lung volumes. Cardiac silhouette:The cardiomediastinal silhouette appears within normal limits. Pulmonary vasculature:Normal Pleural spaces:No pleural effusion or pneumothorax is demonstrated. Upper abdomen:No abnormality seen. Osseous structures: No acute osseous abnormality. Additional findings:There is a right IJ dialysis catheter projecting in the region of the cavoatrial junction. There is a left IJ central venous catheter projecting in the region of the right atrium. IMPRESSION: Central venous catheters as above. No definite pneumothorax. Low lung volumes and bibasil ar atelectasis.
[2019-07-26] MEDS: traMADol HCl 50 MG TAB PO PRN (15:24)
[2019-07-26 15:58] LABS: Anion Gap 17 mmol/L (10-20); BUN (Urea Nitrogen) 42 mg/dL (8.9-20.6); Calc. Creatinine Clearance 17 mL/min (70-130); Calcium 7.5 mg/dL (7.8-10.44); Carbon Dioxide 23 mmol/L (22-29); Chloride 103 mmol/L (98-107); Estimated GFR-MDRD 10; Glucose 214 mg/dL (70-105); Sodium 139 mmol/L (136-145)
[2019-07-26] MEDS: Carvedilol 6.25 MG TAB PO SCH (16:50)
[2019-07-26] MEDS ORDERED: Glycopyrrolate 0.2 MG/ML 5 ML SYRINGE ONE (17:42)
[2019-07-26] MEDS ORDERED: Rocuronium Bromide 10 MG/ML (10ML VIAL) ONE (17:42)
[2019-07-26] MEDS ORDERED: Lidocaine 1% PF 5 ML VIAL ONE (17:42)
[2019-07-26] MEDS ORDERED: PROPOFOL 200 MG/20 ML VIAL ONE (17:42)
[2019-07-26] MEDS ORDERED: PHENYLEPHRINE-NS 100 MCG/ML 10 ML SYRINGE ONE (17:42)
[2019-07-26] MEDS ORDERED: ePHEDrine 50 MG/ML VIAL ONE (17:42)
[2019-07-26] MEDS ORDERED: Ondansetron PF 4 MG/2 ML Vial ONE (17:42)
[2019-07-26] MEDS ORDERED: Heparin 10,000 UNITS/ 10 ML VIAL ONE (17:42)
[2019-07-26] MEDS: HumuLIN 70/30 (300 UNITS/3 ML VIAL) SC SCH (20:42)
[2019-07-27 00:01] LABS: Bacteria/HPF 1+ HPF (None Seen); Bilirubin Negative (Negative); Blood, Urine 1+ (Negative); Clarity Clear (Clear); Glucose, Urine (Dipstick) 500 mg/dL (Negative); Leukocyte Negative Leu/uL (Negative); Nitrite Negative (Negative); Protein, Urine (Dipstick) 600 mg/dL (Neg-Trace); RBC/HPF 0-3 HPF (0-3); Renal Epithelial 0-3 HPF (None Seen); Squamous Epithelial 0-3 HPF (0-3); Urobilinogen Normal mg/dL (Less than 2)
[2019-07-27 00:02] LABS: Urine Culture Reflex Yes Yes
[2019-07-27] MEDS: traMADol HCl 50 MG TAB PO PRN (06:18)
[2019-07-27] MEDS: Ondansetron PF 4 MG/2 ML Vial IVP PRN (06:19)
--- NOTE | 2019-07-27 08:27 | OP ---
DATE OF PROCEDURE: 07/26/2019 PREOPERATIVE DIAGNOSES: Poor IV access, end-stage renal disease, desires peritoneal dialysis. POSTOPERATIVE DIAGNOSES: Poor IV access, end-stage renal disease, desires peritoneal dialysis. PROCEDURES PERFORMED: Laparoscopic pigtail double cuffed peritoneal dialysis catheter, laparoscopic omentopexy. Right IJ cuffed tunneled hemodialysis catheter, AngioDynamics pre-curved. Left IJ central line, ultrasound fluoroscopy use. Left arm primary fistula, perforating branch antecubital vein to the proximal radial artery outflow primary to the basilic vein, which is much larger. Cephalic vein in the upper arm is small, probably he will need a basilic vein transposition fistula. ANESTHESIA: General, local 0.25% Marcaine with epinephrine. DESCRIPTION OF PROCEDURE: The patient was taken to the operating room, where under general anesthesia, neck, chest, abdomen, left upper extremity, and axilla were prepared with ChloraPrep and draped in routine fashion. Bilateral subcostal incision was made in far lateral and pneumoperitoneum to 15 mmHg was obtained with a Veress needle, replaced with a 5 port, and video laparoscope was inserted. Contralateral subcostal 5 port placed under laparoscopic visualization. Stab incision was made at the planned exit site in left lower quadrant and counter incision in left, made periumbilical and under laparoscopic visualization, 8 mm port was placed, directed caudally to the periumbilical counter incision and visualized laparoscopically as it was directed into the rectus sheath and through the rectus sheath and penetrating the abdominal wall caudally. Double cuffed pigtail peritoneal dialysis catheter was inserted laparoscopically. We removed an 8 mm port placed in the internal cuff in the rectus sheath and external cuff in the skin exit site. Using a tunneling device, a [place] dissector was placed through the planned exit site to the counterincision, grasping the peritoneal dialysis catheter, placed an external cuff beneath the skin exit site. Subcutaneous tissue was approximated with 4-0 Monocryl, skin with subdermal 4-0 Monocryl. Omentum was dependent and omentopexy laparoscopic performed with transabdominal wall fixation suture of 0 Vicryl using a GraNee needle. Once this was completed, pneumoperitoneum reduced. All instruments were removed, and all skin incisions were approximated with interrupted subdermal 4-0 Monocryl and Hosmer glue applied. Using ultrasound guidance, the left internal jugular veins were cannulated with a trocar catheter, J-wire was threaded, trocar catheter was removed. Left IJ central line placed using Seldinger technique, removed the J-wire, securing the catheter with two interrupted sutures of 3-0 nylon. Sterile dressings were applied. Each port aspirated and blood flushed with saline solution. On the right side, stab incision was made at the planned exit site of the right chest. Using the tunneling device, the pre-curved AngioDynamics cuffed-tunneled hemodialysis catheter tunneled between the 2 incisions, placed in the fabric cuff beneath the skin exit site. Catheter was secured with two interrupted sutures of 3-0 nylon. Sterile dressing was applied. Small and medium size dilators were placed with J-wire into the internal jugular vein and removed. Dilator and Peel-Away sheath placed over the J-wire into the superior vena cava, and dilator and J-wire removed, catheter placed with the Peel-Away sheath. Peel-Away sheath removed. Platysma was approximated with 4-0 Monocryl, skin with subdermal 4-0 Monocryl and Hosmer glue applied. Fluoroscopic images revealed good line placement, central line and hemodialysis catheter. All ports aspirated blood and flushed with saline solution. Hemodialysis catheter was flushed with heparinized saline solution 1000 units of heparin per mL indicating the volume of the port. Attention was made in the left arm. The cephalic vein at the wrist was too small for a Rosanne fistula. Longitudinal incision was made in the proximal volar forearm longitudinally below the antecubital fossa, carried down to skin and subcutaneous tissue, antecubital vein dissected free use of good caliber. Perforating branch antecubital vein was dissected free dividing branches between full silk ties and clips. It was spatulated over branch point, interrogated with coronary dilators, passing coronary dilators from 2 mm to 4 mm out the basilic vein outflow. Smaller dilators would pass in the cephalic vein was small. The patient given 6000 units of heparin intravenously. After adequate circulation time, the proximal radial artery was clamped proximally and distally. Longitudinal arteriotomy was made for 2 cm anastomosis, initiated with 11 blade, elongated with Estrada scissors over the branch point of the perforating branch antecubital vein, end vein to side radial artery anastomosis created with continuous suture of 6-0 Prolene. Completing anastomosis, vascular clamps released, noted good flow in the fistula interrogated by Doppler with primary outflow through the basilic vein as the cephalic vein was small. Good hemostasis was noted. The patient given 50 mg of protamine intravenously by Anesthesia. Subcutaneous tissue was approximated with 3-0 Monocryl, skin with subdermal 4-0 Monocryl, and Hosmer glue applied. Job ID: [id number]
[2019-07-27] MEDS ORDERED: Heparin 10,000 UNITS/ 10 ML VIAL ONE (09:00)
--- NOTE | 2019-07-27 09:21 | PRG ---
DATE OF SERVICE: 07/27/2019 Wilson Noyola is doing well today. He has started dialysis. His abdomen is soft and nontender. PD catheter dressing is dry. Left arm fistula, good thrill and bruit. Hemodialysis catheter working well for dialysis. The patient is status post laparoscopic PD catheter placement and laparoscopic omentopexy. The placement of right IJ hemodialysis cuff tunneled dialysis catheter, left IJ central line, which can be removed prior to discharge this hospitalization. All blood draws and IV access to the central line. Left arm fistula, outflow primary basilic vein, the cephalic vein in upper arm is very small and atretic. He will need a basilic vein transposition fistula in the future. We would recommend to exercise the left arm and follow up with me in 3 to 4 weeks. He should follow up with the peritoneal dialysis nurse at his dialysis center 3 to 8 days postoperatively and at that visit, the peritoneal dialysis nurse will change the dressing, educate him on peritoneal dialysis catheter care. At this point, I will see him as needed in this hospitalization. Please call if necessary. Job ID: [id number]
--- NOTE | 2019-07-27 11:36 | PRG ---
DATE OF SERVICE: 07/27/2019 SUBJECTIVE: Patient was seen and examined at bedside and overnight events noted. Patient denies any shortness of breath or chest pain or palpitation. No history of nausea or vomiting or diarrhea or fever or chills or cramps. OBJECTIVE: GENERAL: This is a well-built male, in no apparent distress. VITAL SIGNS: Temperature 98.3. Heart rate 80. Respiratory rate . Blood pressure 160/83. HEENT: Atraumatic, normocephalic. Oral mucosa is moist NECK: Supple. CARDIOVASCULAR: S1, S2 heard. Rate and rhythm regular. RESPIRATORY: Clear to auscultation. GASTROINTESTINAL: Abdomen is soft. MUSCULOSKELETAL: No tenderness. No edema. DERMATOLOGIC: No skin rash. NEUROLOGIC: Alert and awake and oriented X3. No focal neurologic deficits. Moving all the extremities. PSYCHIATRIC: Mood and affect normal. LABORATORY DATA: Not done today. ASSESSMENT AND PLAN: 1. End-stage renal disease. Continue dialysis as tolerated. 2. Hypertension. 3. Anemia. 4. Edema. We will continue on dialysis as tolerated. Job ID: [id number]
[2019-07-27] MEDS: Amlodipine 10 MG TAB PO SCH (11:58)
[2019-07-27] MEDS: Carvedilol 6.25 MG TAB PO SCH ×2 (11:58→17:36)
[2019-07-27] MEDS: Losartan 25 MG TAB PO SCH (11:59)
[2019-07-27] MEDS: Ferrous Gluconate 324 MG TAB PO SCH (12:16)
[2019-07-27] MEDS: Famotidine 20 MG TAB PO SCH (12:16)
[2019-07-27] MEDS: Calcium Carbonate 500 MG ChewTAB PO SCH ×2 (12:18→20:31)
[2019-07-27] MEDS ORDERED: Polyethylene Glycol 3350 17 GM Packet PO SCH (13:30)
[2019-07-27 14:24] LABS: HBSAB Concentration 1.43 mIU/mL; HBSAg Index 0.32 S/CO (0-0.99); Hep B Core Total Ab Non-Reactive (NonReactive); Hep B Core Total Index 0.05 S/CO (0-0.79); Hep B Surf AB Non-Reactive (NonReactive); Hep B Surf Ag Non-Reactive S/CO (NonReactive); Hep C IgG Ab Non-Reactive (NonReactive); Hep C Index 0.06 S/CO (0-0.79)
--- NOTE | 2019-07-27 14:45 | PDOC.HOSPP ---
- Subjective Encounter Date: 07/27/19 Encounter Time: 10:30 Subjective: Patient seen and examined for ESRD. No new complaints. Overnight events noted - Objective Vital Signs & Weight: Vital Signs (12 hours) Temp Pulse Resp BP BP BP Pulse Ox 07/27/19 11:58 79 183/90 H 07/27/19 07:36 99.1 F 79 18 183/90 H 98 07/27/19 03:43 98.3 F 80 18 160/83 H 100 Weight Admit Weight 189 lb 4.8 oz Weight 177 lb I&O: 07/26/19 07/27/19 07/28/19 06:59 06:59 06:59 Intake Total 1080 270 Output Total 210 400 Balance 1080 60 -400 Result Diagrams: 07/25/19 15:20 07/26/19 15:23 Additional Labs: Accuchecks 07/27/19 07/27/19 07/26/19 05:43 00:24 20:13 POC Glucose 142 H 133 H 185 H 07/26/19 17:03 POC Glucose 192 H EKG Reviewed by me: Yes (Tele SR) Hospitalist ROS - Review of Systems Respiratory: denies: cough, dry, shortness of breath, hemoptysis, SOB with excertion, pleuritic pain, sputum, wheezing, other Cardiovascular: denies: chest pain, palpitations, orthopnea, paroxysmal noc. dyspnea, edema, light headedness, other Gastrointestinal: denies: nausea, vomitting, abdominal pain, diarrhea, constipation, melena, hematochezia, other - Medication Medications: Active Medications Generic Name Dose Route Start Last Admin Trade Name Geeq PRN Reason Stop Dose Admin Acetaminophen 1,000 mg 07/26/19 14:21 07/26/19 15:26 Tylenol PO 1,000 mg Q6H PRN Administration Mild-Moderate Pain (1-5) Amlodipine Besylate 10 mg 07/26/19 09:00 07/27/19 11:58 Norvasc PO Not Given DAILY [facility] Calcium Carbonate 1,000 mg 07/23/19 21:00 07/27/19 12:18 Tums PO 1,000 mg BID ANDREA Administration Carvedilol 6.25 mg 07/26/19 17:00 07/27/19 11:58 Coreg PO Not Given BID-[facility] Clonidine 0.1 mg 07/21/19 18:39 07/25/19 20:44 Catapres PO 0.1 mg Q4H PRN Administration SBP Greater Than 180 Famotidine 20 mg 07/22/19 09:00 07/27/19 12:16 Pepcid PO 20 mg DAILY ANDREA Administration Ferrous Gluconate 324 mg 07/27/19 08:00 07/27/19 12:16 Fergon PO 324 mg QAM-WM ANDREA Administration Insulin Human Isoph/Insulin Regular 10 units 07/25/19 21:00 07/26/19 20:42 Humulin 70/30 SC 10 unit QPM ANDREA Administration Insulin Human Lispro 0 units 07/21/19 18:37 07/25/19 11:23 Humalog SC 3 unit .MILD SLIDING SCALE PRN Administration Mild Correctional Scale Labetalol HCl 20 mg 07/21/19 18:39 07/22/19 23:25 Normodyne SLOW IVP 20 mg Q4H PRN Administration SBP > 180 and HR >/= 70 Losartan Potassium 100 mg 07/27/19 09:00 07/27/19 11:59 Cozaar PO Not Given DAILY [facility] Ondansetron HCl 4 mg 07/23/19 05:47 07/27/19 06:19 Zofran IVP 4 mg Q6H PRN Administration Nausea/Vomiting Tramadol HCl 50 mg 07/26/19 14:21 07/27/19 06:18 Ultram PO 50 mg Q4H PRN Administration Moderate to Severe Pain (6-10) - Exam General Appearance: NAD Heart: RRR, no gallops Respiratory: CTAB, no rales Gastrointestinal: soft, non-tender, normal bowel sounds Extremities: no edema Hosp A/P (1) ALIZE (acute kidney injury) Code(s): N17.9 - ACUTE KIDNEY FAILURE, UNSPECIFIED Status: Acute (2) Volume overload Code(s): E87.70 - FLUID OVERLOAD, UNSPECIFIED Status: Acute (3) DM2 (diabetes mellitus, type 2) Status: Acute Qualifiers: Chronic kidney disease stage: stage 5, not on chronic dialysis (4) Urinary retention Code(s): R33.9 - RETENTION OF URINE, UNSPECIFIED Status: Acute (5) ESRD (end stage renal disease) on dialysis Code(s): N18.6 - END STAGE RENAL DISEASE; Z99.2 - DEPENDENCE ON RENAL DIALYSIS Status: Acute (6) Anemia of renal disease Code(s): N18.9 - CHRONIC KIDNEY DISEASE, UNSPECIFIED; D63.1 - ANEMIA IN CHRONIC KIDNEY DISEASE Status: Chronic (7) Hyperkalemia Code(s): E87.5 - HYPERKALEMIA Status: Acute (8) Metabolic acidosis Code(s): E87.2 - ACIDOSIS Status: Acute - Plan DC Ar[facility] Out patient dialysis arranged DC later today if able to void Cont Losartan Cont Amlodipine Cont Coreg
[2019-07-27] MEDS: EPOETIN ALFA-EPBX (ESRD) 10,000 UNIT/ML VIAL IVP SCH (15:16)
[2019-07-27] MEDS: HumaLOG 300 UNITS/3 ML VIAL SC PRN (17:51)
[2019-07-27] MEDS: HumuLIN 70/30 (300 UNITS/3 ML VIAL) SC SCH (20:31)
[2019-07-28] MEDS: Calcium Carbonate 500 MG ChewTAB PO SCH ×2 (08:55→20:21)
[2019-07-28] MEDS: Carvedilol 6.25 MG TAB PO SCH ×2 (08:55→17:42)
[2019-07-28] MEDS: Polyethylene Glycol 3350 17 GM Packet PO SCH (08:55)
[2019-07-28] MEDS: Famotidine 20 MG TAB PO SCH (08:56)
[2019-07-28] MEDS: traMADol HCl 50 MG TAB PO PRN ×2 (08:56→20:21)
[2019-07-28] MEDS: Ferrous Gluconate 324 MG TAB PO SCH (08:56)
[2019-07-28] MEDS: Amlodipine 10 MG TAB PO SCH (08:56)
[2019-07-28] MEDS: Losartan 25 MG TAB PO SCH (09:38)
[2019-07-28] MEDS: HumaLOG 300 UNITS/3 ML VIAL SC PRN ×2 (10:47→17:39)
--- NOTE | 2019-07-28 11:02 | DIS ---
DATE OF ADMISSION: 07/21/2019 DATE OF DISCHARGE: 07/28/2019 DISCHARGE DISPOSITION: Home. FOLLOWUP: Follow up with primary care physician, Dr. Arrington in 1 week. Follow up with General Surgery, Dr. Meier and Nephrology, Dr Amezquita as scheduled. The patient will report to [facility] tomorrow. DISCHARGE MEDICATIONS: 1. Carvedilol 6.25 mg b.i.d. 2. Losartan 100 mg daily. 3. Humulin 70/30, 10 units q.p.m. 4. Amlodipine 10 mg daily. 5. Ergocalciferol 50,000 units every 7 days. The patient was seen and examined on the day of discharge. Denies any new complaints. No chest pain, shortness of breath, or palpitations reported. INPATIENT PROCEDURES: On 21 July 2019, the patient underwent right femoral hemodialysis catheter. On 26 July 2019, the patient underwent laparoscopic peritoneal dialysis catheter placement with right IJ cuffed tunneled hemodialysis catheter as well as left internal jugular central line placement. He also had a right upper extremity fistula placement for long-term hemodialysis. BRIEF HOSPITAL COURSE: The patient is a 44-year-old male with worsening CKD, presented to the emergency room on 21 July 2019, with worsening kidney function. He was sent from the Nephrology Clinic. His potassium was 5.8 with creatinine of 10.35. Please refer to the history and physical for further details. The patient was admitted to the telemetry unit with a diagnosis of acute kidney injury on CKD, requiring emergent dialysis. He underwent emergent hemodialysis after femoral dialysis placement. His potassium gradually improved. He also underwent peritoneal dialysis catheter along with right IJ cuffed hemodialysis catheter as well as left upper extremity AV fistula placement. He underwent dialysis yesterday. He will follow up with [facility] dialysis from tomorrow. He has been extensively counseled on the care for the catheter. He has been cleared by Nephrology for discharge. SIGNIFICANT LABORATORY DATA: Vitamin D level 10.3, parathyroid hormone was 481. WBC 6.1 with hemoglobin 7.8. Urine culture was negative. Chest x-ray after dialysis catheter placement was negative. FINAL DIAGNOSES: 1. Acute kidney injury on chronic kidney disease stage 5, started on hemodialysis. 2. Volume overload. 3. Hyperkalemia. 4. Metabolic acidosis. 5. Anemia of renal disease. 6. Urinary retention after the above procedure requiring Ardon catheter. Adron catheter was removed yesterday. He is voiding appropriately. 7. Diabetes mellitus, type 2. 8. Vitamin D deficiency. 9. Secondary hyperparathyroidism. 10. Moderate protein-calorie malnutrition probably secondary to proteinuria. PLAN: Plan of care was discussed with the patient in detail. He stated understanding. Total time coordinating the discharge of this patient was 33 minutes. Job ID: [id number]
--- NOTE | 2019-07-28 11:26 | PDOC.HOSPP ---
- Subjective Encounter Date: 07/28/19 Encounter Time: 11:25 Subjective: Patient seen and examined for ALIZE. Now feels dizzy on standing. Orthostatic vitals positive. No new complaints. No overnight events - Objective Vital Signs & Weight: Vital Signs (12 hours) Temp Pulse Resp BP BP Pulse Ox 07/28/19 08:00 98.2 F 81 18 144/78 H 100 07/28/19 03:30 98.7 F 76 14 169/89 H 100 Weight Admit Weight 189 lb 4.8 oz Weight 173 lb 3 oz I&O: 07/27/19 07/28/19 07/29/19 06:59 06:59 06:59 Intake Total 270 940 Output Total 210 840 Balance 60 100 Result Diagrams: 07/25/19 15:20 07/26/19 15:23 Additional Labs: Accuchecks 07/28/19 07/28/19 07/27/19 10:45 06:08 20:09 POC Glucose 285 H 125 H 162 H 07/27/19 16:46 POC Glucose 225 H EKG Reviewed by me: Yes (Tele SR) Hospitalist ROS - Review of Systems Respiratory: denies: cough, dry, shortness of breath, hemoptysis, SOB with excertion, pleuritic pain, sputum, wheezing, other Cardiovascular: denies: chest pain, palpitations, orthopnea, paroxysmal noc. dyspnea, edema, light headedness, other Gastrointestinal: reports: nausea. denies: vomitting, abdominal pain, diarrhea , constipation, melena, hematochezia, other Neurological: denies: weakness, numbness, incoordination, change in speech, confusion, seizures - Medication Medications: Active Medications Generic Name Dose Route Start Last Admin Trade Name Freq PRN Reason Stop Dose Admin Acetaminophen 1,000 mg 07/26/19 14:21 07/26/19 15:26 Tylenol PO 1,000 mg Q6H PRN Administration Mild-Moderate Pain (1-5) Calcium Carbonate 1,000 mg 07/23/19 21:00 07/28/19 08:55 Tums PO 1,000 mg BID ANDREA Administration Clonidine 0.1 mg 07/21/19 18:39 07/25/19 20:44 Catapres PO 0.1 mg Q4H PRN Administration SBP Greater Than 180 Epoetin Chivo-epbx 10,000 unit 07/27/19 09:00 07/27/19 15:16 Retacrit IVP 10,000 unit MoWeFr ANDREA Administration Famotidine 20 mg 07/22/19 09:00 07/28/19 08:56 Pepcid PO 20 mg DAILY ANDREA Administration Ferrous Gluconate 324 mg 07/27/19 08:00 07/28/19 08:56 Fergon PO 324 mg QAM-WM ANDREA Administration Insulin Human Isoph/Insulin Regular 10 units 07/25/19 21:00 07/27/19 20:31 Humulin 70/30 SC 10 unit QPM ANDREA Administration Insulin Human Lispro 0 units 07/21/19 18:37 07/28/19 10:47 Humalog SC 4 unit .MILD SLIDING SCALE PRN Administration Mild Correctional Scale Labetalol HCl 20 mg 07/21/19 18:39 07/22/19 23:25 Normodyne SLOW IVP 20 mg Q4H PRN Administration SBP > 180 and HR >/= 70 Ondansetron HCl 4 mg 07/23/19 05:47 07/27/19 06:19 Zofran IVP 4 mg Q6H PRN Administration Nausea/Vomiting Polyethylene Glycol 17 gm 07/28/19 09:00 07/28/19 08:55 Miralax PO 17 gm DAILY ANDREA Administration Tramadol HCl 50 mg 07/26/19 14:21 07/28/19 08:56 Ultram PO 50 mg Q4H PRN Administration Moderate to Severe Pain (6-10) - Exam General Appearance: NAD Neck: supple, no JVD Heart: RRR, no gallops, no rubs Respiratory: CTAB, no wheezes, no rales, no ronchi Gastrointestinal: soft, non-tender, non-distended, normal bowel sounds Neurological: no new deficit Psychiatric: normal affect, A&O x 3 Hosp A/P (1) ALIZE (acute kidney injury) Code(s): N17.9 - ACUTE KIDNEY FAILURE, UNSPECIFIED Status: Acute (2) Volume overload Code(s): E87.70 - FLUID OVERLOAD, UNSPECIFIED Status: Acute (3) DM2 (diabetes mellitus, type 2) Status: Acute Qualifiers: Chronic kidney disease stage: stage 5, not on chronic dialysis (4) Urinary retention Code(s): R33.9 - RETENTION OF URINE, UNSPECIFIED Status: Acute (5) ESRD (end stage renal disease) on dialysis Code(s): N18.6 - END STAGE RENAL DISEASE; Z99.2 - DEPENDENCE ON RENAL DIALYSIS Status: Acute (6) Anemia of renal disease Code(s): N18.9 - CHRONIC KIDNEY DISEASE, UNSPECIFIED; D63.1 - ANEMIA IN CHRONIC KIDNEY DISEASE Status: Chronic (7) Hyperkalemia Code(s): E87.5 - HYPERKALEMIA Status: Acute (8) Metabolic acidosis Code(s): E87.2 - ACIDOSIS Status: Acute (9) Orthostatic hypotension Code(s): I95.1 - ORTHOSTATIC HYPOTENSION Status: Acute - Plan Hold discharge for now per Nephro rec Standing BP only Split Amlodipine and Losartan per Nephro rec Out patient dialysis arranged Cont Coreg AM labs
--- NOTE | 2019-07-28 11:29 | PRG ---
DATE OF SERVICE: SUBJECTIVE: Patient was seen and examined at bedside and overnight events noted. Patient denies any shortness of breath or chest pain or palpitation. No history of nausea or vomiting or diarrhea or fever or chills or cramps. OBJECTIVE: GENERAL: This is a well-built male, in no apparent distress. VITAL SIGNS: Temperature 98.2. Heart rate 81. Respiratory rate 18. Blood pressure 144/78. HEENT: Atraumatic, normocephalic. Oral mucosa is moist NECK: Supple. CARDIOVASCULAR: S1, S2 heard. Rate and rhythm regular. RESPIRATORY: Clear to auscultation. GASTROINTESTINAL: Abdomen is soft. MUSCULOSKELETAL: No tenderness. No edema. DERMATOLOGIC: No skin rash. NEUROLOGIC: Alert and awake and oriented X3. No focal neurologic deficits. Moving all the extremities. PSYCHIATRIC: Mood and affect normal. LABORATORY DATA: Not done today. ASSESSMENT AND PLAN: 1. End-stage renal disease. Continue dialysis as tolerated. 2. Edema, controlled. 3. Hypertension. 4. Anemia. 5. The patient is start to have outpatient dialysis tomorrow. 6. Urinary retention, better. Job ID: [id number]
[2019-07-28 11:45] VITALS: BMI 27.1
[2019-07-28] MEDS: HumuLIN 70/30 (300 UNITS/3 ML VIAL) SC SCH ×2 (20:22→21:28)
[2019-07-29 05:37] LABS: Hemoglobin 7.8 g/dL (14.0-18.0); Platelet Count 243 thou/uL (130-400)
[2019-07-29 06:01] LABS: Anion Gap 16 mmol/L (10-20); BUN (Urea Nitrogen) 51 mg/dL (8.9-20.6); Calc. Creatinine Clearance 13 mL/min (70-130); Calcium 7.6 mg/dL (7.8-10.44); Carbon Dioxide 27 mmol/L (22-29); Chloride 95 mmol/L (98-107); Estimated GFR-MDRD 8; Glucose 126 mg/dL (70-105); Potassium 4.1 mmol/L (3.5-5.1); Sodium 134 mmol/L (136-145)
[2019-07-29] MEDS: traMADol HCl 50 MG TAB PO PRN (07:49)
[2019-07-29] MEDS ORDERED: Amlodipine 5 MG TAB PO SCH (09:00)
[2019-07-29] MEDS ORDERED: Losartan 25 MG TAB PO SCH ×2 (09:00→21:00)
--- NOTE | 2019-07-29 09:59 | PRG ---
DATE OF SERVICE: 07/29/2019 SUBJECTIVE: Patient was seen and examined at bedside and overnight events noted. Patient denies any shortness of breath or chest pain or palpitation. No history of nausea or vomiting or diarrhea or fever or chills or cramps. OBJECTIVE: GENERAL: This is a well-built male, in no apparent distress. VITAL SIGNS: Temperature 99.2. Heart rate 79. Respiratory rate 18. Blood pressure 159/81. HEENT: Atraumatic, normocephalic. Oral mucosa is moist NECK: Supple. CARDIOVASCULAR: S1, S2 heard. Rate and rhythm regular. RESPIRATORY: Clear to auscultation. GASTROINTESTINAL: Abdomen is soft. MUSCULOSKELETAL: No tenderness. No edema. DERMATOLOGIC: No skin rash. NEUROLOGIC: Alert and awake and oriented X3. No focal neurologic deficits. Moving all the extremities. PSYCHIATRIC: Mood and affect normal. LABORATORY DATA: Potassium is 4.0, BUN is 51, and creatinine is 7.9. ASSESSMENT AND PLAN: 1. End-stage renal disease. Continue on dialysis. 2. Orthostasis with hypotension. We will reduce the blood pressure medication. Monitor closely. Monitor standing blood pressure. 3. Edema, controlled. 4. Anemia, monitor. 5. Urinary retention, better. 6. Dizziness getting better per the patient and she is doing dialysis, tolerating well. We will have a gentle dialysis today. We will continue to follow. Job ID: [id number]
[2019-07-29] MEDS: Carvedilol 6.25 MG TAB PO SCH ×2 (10:29→18:07)
[2019-07-29] MEDS: EPOETIN ALFA-EPBX (ESRD) 10,000 UNIT/ML VIAL IVP SCH (13:25)
--- NOTE | 2019-07-29 14:23 | PDOC.HOSPP ---
- Subjective Encounter Date: 07/29/19 Encounter Time: 13:00 Subjective: Patient seen and examined for ALIZE. No CP/SOB/N/V. No lightheadedness or near syncope. No new complaints. No overnight events - Objective Vital Signs & Weight: Vital Signs (12 hours) Temp Pulse Resp BP BP BP BP 07/29/19 12:59 169/88 H 102/61 170/83 H 07/29/19 12:50 98.1 F 80 18 158/76 H 07/29/19 07:29 99.2 F 79 18 159/81 H 07/29/19 03:29 98.5 F 72 16 128/65 Pulse Ox 07/29/19 12:59 07/29/19 12:50 98 07/29/19 07:29 99 07/29/19 03:29 99 Weight Admit Weight 189 lb 4.8 oz Weight 174 lb 3 oz I&O: 07/28/19 07/29/19 07/30/19 06:59 06:59 06:59 Intake Total 940 1630 Output Total 840 1 Balance 100 1629 Result Diagrams: 07/29/19 04:56 07/29/19 04:56 Additional Labs: Accuchecks 07/29/19 07/29/19 07/28/19 10:55 05:28 20:19 POC Glucose 105 141 H 154 H 07/28/19 17:39 POC Glucose 231 H Selected Entries 07/29/19 12:59 Blood Pressure 169/88 H [Sitting] Blood Pressure 102/61 [Standing] Blood Pressure 170/83 H [Supine] EKG Reviewed by me: Yes (Tele SR) Hospitalist ROS - Review of Systems Respiratory: denies: cough, dry, shortness of breath, hemoptysis, SOB with excertion, pleuritic pain, sputum, wheezing, other Cardiovascular: denies: chest pain, palpitations, orthopnea, paroxysmal noc. dyspnea, edema, light headedness, other Gastrointestinal: denies: nausea, vomitting, abdominal pain, diarrhea, constipation, melena, hematochezia, other - Medication Medications: Active Medications Generic Name Dose Route Start Last Admin Trade Name Freq PRN Reason Stop Dose Admin Acetaminophen 1,000 mg 07/26/19 14:21 07/26/19 15:26 Tylenol PO 1,000 mg Q6H PRN Administration Mild-Moderate Pain (1-5) Amlodipine Besylate 5 mg 07/29/19 09:00 07/29/19 10:30 Norvasc PO Not Given BID [facility] Calcium Carbonate 1,000 mg 07/23/19 21:00 07/28/19 20:21 Tums PO 1,000 mg BID [facility] Administration Carvedilol 6.25 mg 07/28/19 17:00 07/29/19 10:29 Coreg PO Not Given BID-[facility] Clonidine 0.1 mg 07/21/19 18:39 07/25/19 20:44 Catapres PO 0.1 mg Q4H PRN Administration SBP Greater Than 180 Epoetin Chivo-epbx 10,000 unit 07/27/19 09:00 07/29/19 13:25 Retacrit IVP Not Given MoWeFr [facility] Famotidine 20 mg 07/22/19 09:00 07/28/19 08:56 Pepcid PO 20 mg DAILY [facility] Administration Ferrous Gluconate 324 mg 07/27/19 08:00 07/28/19 08:56 Fergon PO 324 mg QAM-WM [facility] Administration Insulin Human Isoph/Insulin Regular 10 units 07/25/19 21:00 07/28/19 21:28 Humulin 70/30 SC 10 unit QPM ANDREA Administration Insulin Human Lispro 0 units 07/21/19 18:37 07/28/19 17:39 Humalog SC 3 unit .MILD SLIDING SCALE PRN Administration Mild Correctional Scale Labetalol HCl 20 mg 07/21/19 18:39 07/22/19 23:25 Normodyne SLOW IVP 20 mg Q4H PRN Administration SBP > 180 and HR >/= 70 Losartan Potassium 50 mg 07/29/19 09:00 07/29/19 10:30 Cozaar PO Not Given BID [facility] Ondansetron HCl 4 mg 07/23/19 05:47 07/27/19 06:19 Zofran IVP 4 mg Q6H PRN Administration Nausea/Vomiting Polyethylene Glycol 17 gm 07/28/19 09:00 07/28/19 08:55 Miralax PO 17 gm DAILY [facility] Administration Tramadol HCl 50 mg 07/26/19 14:21 07/29/19 07:49 Ultram PO 50 mg Q4H PRN Administration Moderate to Severe Pain (6-10) - Exam General Appearance: NAD Neck: supple, no JVD Heart: RRR, no murmur, no gallops Respiratory: CTAB, no wheezes, no rales Gastrointestinal: soft, non-tender, non-distended, normal bowel sounds Neurological: no new deficit Psychiatric: normal affect, A&O x 3 Hosp A/P (1) AILZE (acute kidney injury) Code(s): N17.9 - ACUTE KIDNEY FAILURE, UNSPECIFIED Status: Acute (2) Volume overload Code(s): E87.70 - FLUID OVERLOAD, UNSPECIFIED Status: Acute (3) DM2 (diabetes mellitus, type 2) Status: Acute Qualifiers: Chronic kidney disease stage: stage 5, not on chronic dialysis (4) Urinary retention Code(s): R33.9 - RETENTION OF URINE, UNSPECIFIED Status: Acute (5) ESRD (end stage renal disease) on dialysis Code(s): N18.6 - END STAGE RENAL DISEASE; Z99.2 - DEPENDENCE ON RENAL DIALYSIS Status: Acute (6) Anemia of renal disease Code(s): N18.9 - CHRONIC KIDNEY DISEASE, UNSPECIFIED; D63.1 - ANEMIA IN CHRONIC KIDNEY DISEASE Status: Chronic (7) Hyperkalemia Code(s): E87.5 - HYPERKALEMIA Status: Acute (8) Metabolic acidosis Code(s): E87.2 - ACIDOSIS Status: Acute (9) Orthostatic hypotension Code(s): I95.1 - ORTHOSTATIC HYPOTENSION Status: Acute - Plan Cannot arrange outpt dialysis due to no legal status Remains orthostatic (BP dropped from 170 to 102 on standing)(Did not receive any BP meds this AM - Had 2 liters removed with dialysis) Cont to monitor DC later today if Orthostatic vitals ok Reduce Losartan to 25 mg BID Cont other meds with holding parameters
[2019-07-29] MEDS: Ferrous Gluconate 324 MG TAB PO SCH (14:25)
[2019-07-29] MEDS: Calcium Carbonate 500 MG ChewTAB PO SCH ×2 (14:25→20:54)
[2019-07-29] MEDS: Famotidine 20 MG TAB PO SCH (14:25)
[2019-07-29] MEDS: Polyethylene Glycol 3350 17 GM Packet PO SCH (14:26)
[2019-07-29] MEDS ORDERED: Amlodipine 5 MG TAB PO PRN (14:46)
[2019-07-29] MEDS ORDERED: Heparin 10,000 UNITS/1 ML VIAL ONE (15:00)
--- NOTE | 2019-07-29 16:26 | PRG ---
DATE OF SERVICE: 07/29/2019 SUBJECTIVE: Wilson Noyola is seen today at the request of Dr. Limon. He has asked me to remove his peritoneal dialysis catheter. It has been discovered that he is not a legal resident. Apparently, he committed a crime, served time in [place], and his residency is revoked. He has not reported back to immigration to resolve this and it is suspected that he knows that if he does, he will be deported. The patient is from [place]. 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 I have warned the patient about neglecting this catheter and not caring for probably could result in peritonitis and infection, and he understands this. I have told him he can follow up in my office in 2 to 3 weeks and there will be no charge for the followup and this is part of the operation performed. At this point, I will see him as needed. He can follow up in my office in 2 to 3 weeks postoperatively. Job ID: [id number]
[2019-07-29] MEDS: HumuLIN 70/30 (300 UNITS/3 ML VIAL) SC SCH (20:54)
[2019-07-30] MEDS: traMADol HCl 50 MG TAB PO PRN (03:50)
[2019-07-30] MEDS ORDERED: Amlodipine 5 MG TAB PO SCH (09:00)
[2019-07-30] MEDS: Carvedilol 6.25 MG TAB PO SCH (09:13)
[2019-07-30] MEDS: Ferrous Gluconate 324 MG TAB PO SCH (09:13)
[2019-07-30] MEDS: Calcium Carbonate 500 MG ChewTAB PO SCH ×2 (09:14→09:16)
[2019-07-30] MEDS: Polyethylene Glycol 3350 17 GM Packet PO SCH (09:14)
[2019-07-30] MEDS: Famotidine 20 MG TAB PO SCH (09:14)
[2019-07-30] MEDS: HumaLOG 300 UNITS/3 ML VIAL SC PRN (11:07)
[2019-07-30 11:14] VITALS: BP 175/93; TEMP 98
--- NOTE | 2019-07-30 13:05 | PRG ---
DATE OF SERVICE: 07/30/2019 SUBJECTIVE: Patient was seen and examined at bedside and overnight events noted. Patient denies any shortness of breath or chest pain or palpitation. No history of nausea or vomiting or diarrhea or fever or chills or cramps. OBJECTIVE: GENERAL: This is a well-built male, in no apparent distress. VITAL SIGNS: Temperature 98.7. Pulse 81. Respiratory rate 18. Blood pressure 175/93. HEENT: Atraumatic, normocephalic. Oral mucosa is moist NECK: Supple. CARDIOVASCULAR: S1, S2 heard. Rate and rhythm regular. RESPIRATORY: Clear to auscultation. GASTROINTESTINAL: Abdomen is soft. MUSCULOSKELETAL: No tenderness. No edema. DERMATOLOGIC: No skin rash. NEUROLOGIC: Alert and awake and oriented X3. No focal neurologic deficits. Moving all the extremities. PSYCHIATRIC: Mood and affect normal. LABORATORY DATA: Not done today. ASSESSMENT AND PLAN: 1. End-stage renal disease, started on hemodialysis and also had a peritoneal dialysis catheter during this admission, but unfortunately, it was noted that the patient does not have a legal status and not able to have insurance or a regular dialysis as an outpatient. I had a lengthy discussion with the patient regarding the risk of having the peritoneal dialysis catheter in place given the inability to do the required regular weekly cleaning and high risk for infection, given his work with increased risk of sweating in the outside environment. The patient understands that, but is not willing to take the catheter out. He said he is able to talk with community engagement specialist in 1 to 2 days and we will make an appointment with Dr. Meier to remove the peritoneal dialysis catheter. The patient was also advised on risk of tunneled dialysis catheter infection and also need to be removed as soon as we can once the fistula matures and the patient does have a fistula. 2. Edema, controlled. 3. Anemia. 4. Urinary retention, better. 5. Orthostatic hypertension. 6. Prognosis guarded. The patient is at high risk for infection including peritonitis, and I would strongly recommend him to remove the peritoneal dialysis catheter as soon as he can if he is not able to pursue peritoneal dialysis in the next few weeks. We will follow. Job ID: [id number]
--- NOTE | 2019-07-31 09:47 | DIS ---
DATE OF ADMISSION: 07/21/2019 DATE OF DISCHARGE: 07/30/2019 DISCHARGE DISPOSITION: Home. FOLLOWUP: 1. Follow up with primary care physician at [facility] in 1 week. 2. Follow up with Nephrology, Dr. Amezquita as well as General Surgery, Dr. Meier as scheduled. 3. Outpatient dialysis could not be arranged due to lack of insurance. DISCHARGE MEDICATIONS: 1. Amlodipine 5 mg daily. 2. Carvedilol 6.25 mg b.i.d. 3. Vitamin D2 of 50,000 units every 7 days. 4. Humulin 70/30 of 10 units q.p.m. HISTORY: The patient was seen and examined on the day of discharge. Denies any new complaints. No chest pain, shortness of breath, or palpitations. The patient was extensively counseled on caring of the dialysis catheter as well as peritoneal dialysis catheter. BRIEF HOSPITAL COURSE: The patient is a 44-year-old male with worsening CKD, presented to the emergency room on July 21, 2019, with worsening kidney function. His potassium on admission was 5.8 with creatinine 10.35. He was [facility] the [facility]. Please refer to the history and physical for further details. The patient was admitted to the telemetry unit with a diagnosis of worsening acute kidney injury with electrolyte abnormalities. He underwent a right femoral hemodialysis catheter on the day of admission for emergent hemodialysis. On July 26, he underwent laparoscopic peritoneal dialysis catheter placement along with a right IJ cuffed tunneled hemodialysis catheter placement. He also had a central line placed during this admission, which was removed on the day of discharge. Right upper extremity fistula has also been placed. Due to lack of insurance, dialysis could not be arranged. Dr. Meier recommended to discontinue peritoneal dialysis catheter, however, the patient refused. The patient understands the risk associated with improper care of peritoneal dialysis catheter leading to life-threatening complications. He will follow up with Dr. Meier as outpatient. He was counseled on symptoms of uremia as well as volume overload. He has been cleared by consultants for discharge. FINAL DIAGNOSES: 1. Acute kidney injury on chronic kidney disease, stage 5, started on hemodialysis. Please note that outpatient hemodialysis could not be arranged due to lack of insurance. 2. Volume overload, resolved. 3. Hyperkalemia, resolved. 4. Metabolic acidosis. 5. Anemia of renal disease. 6. Urinary retention after the above procedure, requiring Ardon catheter, resolved. 7. Diabetes mellitus, type 2. 8. Vitamin D deficiency. 9. Secondary hyperparathyroidism. 10. Moderate protein-calorie malnutrition, probably secondary to proteinuria. TIME SPENT: Total time in coordinating the discharge of this patient was 33 minutes. Job ID: [id number]
== END 2019-07-30 15:00 | disposition home or self-care (01) | DRG 628 ==
LOC: ERS 11:55 → 2NO 15:00
PROVIDERS: ADMIT Family Medicine; ATTEND Family Medicine
PROC: 06HY33Z Insertion of Infusion Device into Lower Vein, Percutaneous Approach (ICD-10-PCS; principal; 2019-07-21)
PROC: 031C0ZF Bypass Left Radial Artery to Lower Arm Vein, Open Approach (ICD-10-PCS; 2019-07-26)
PROC: 0WHG43Z Insertion of Infusion Device into Peritoneal Cavity, Percutaneous Endoscopic Approach (ICD-10-PCS; 2019-07-26)
PROC: 0DUU47Z Supplement Omentum with Autologous Tissue Substitute, Percutaneous Endoscopic Approach (ICD-10-PCS; 2019-07-26)
PROC: 05HN33Z Insertion of Infusion Device into Left Internal Jugular Vein, Percutaneous Approach (ICD-10-PCS; 2019-07-26)
PROC: B5141ZA Fluoroscopy of Left Jugular Veins using Low Osmolar Contrast, Guidance (ICD-10-PCS; 2019-07-26)
PROC: 05HM33Z Insertion of Infusion Device into Right Internal Jugular Vein, Percutaneous Approach (ICD-10-PCS; 2019-07-26)
PROC: B543ZZA Ultrasonography of Right Jugular Veins, Guidance (ICD-10-PCS; 2019-07-26)
PROC: 5A1D70Z Performance of Urinary Filtration, Intermittent, Less than 6 Hours Per Day (ICD-10-PCS; 2019-07-26)
DX: E87.5 Hyperkalemia (principal); N18.6 End stage renal disease; I12.0 Hypertensive chronic kidney disease with stage 5 chronic kidney disease or end stage renal disease; N17.9 Acute kidney failure, unspecified; E44.0 Moderate protein-calorie malnutrition; N25.81 Secondary hyperparathyroidism of renal origin; E11.22 Type 2 diabetes mellitus with diabetic chronic kidney disease; E87.2 Acidosis; E78.5 Hyperlipidemia, unspecified; E83.51 Hypocalcemia; D63.1 Anemia in chronic kidney disease; E87.70 Fluid overload, unspecified; I95.1 Orthostatic hypotension; Z68.27 Body mass index [BMI] 27.0-27.9, adult; Z79.4 Long term (current) use of insulin
CPT/HCPCS: 36415; 36416; 36556; 71045; 80048; 80053; 81001; 82040; 82306; 83970; 84155; 85014; 85018; 85025; 85049; 85610; 85730; 86580; 86704; 86706; 86803; 87086; 87340; 90935; 93005; 93970; C1752; C1769; G0257; G0365; J0670; J0690; J1610; J1642; J1644; J1815; J2001; J2405; J2704; J2720; J3010; J3490; Q5105; Q9967

== ENCOUNTER 2019-08-04 10:44 | Emergency (ER) | payer SELFPAY ==
[2019-08-04 11:40] LABS: #Basophils 0.1 thou/uL (0.0-0.2); #Eosinphils 0.3 thou/uL (0.0-0.7); #Lymphocytes 1.2 thou/uL (1.20-3.40); #Monocytes 0.6 thou/uL (0.11-0.59); #Neutrophils 4.1 thou/uL (1.40-6.50); %Basophils 0.9 % (0.0-1.0); %Eosinophils 5.2 % (0.0-10.0); %Lymphocytes 19.3 % (21.0-51.0); %Monocytes 9.6 % (0.0-10.0); Hemoglobin 7.2 g/dL (14.0-18.0); Mean Corpuscular HGB CONC 33.4 g/dL (32.0-36.0); Mean Corpuscular Hemoglobin 30.4 pg (27.0-31.0); Mean Corpuscular Volume 91.1 fL (78.0-98.0); Mean Platelet Volume 7.3 fL (7.4-10.4); Platelet Count 294 thou/uL (130-400); RBC Distribution Width 13.2 % (11.5-14.5); Red Blood Cell (RBC) Count 2.38 mill/uL (4.70-6.10); White Blood Cell (WBC) Count 6.4 thou/uL (4.8-10.8)
[2019-08-04 12:03] LABS: ALT (SGPT) Less than 7 U/L (8-55); AST (SGOT) 11 U/L (5-34); Albumin 3.4 g/dL (3.5-5.0); Alkaline Phosphatase 112 U/L (40-150); Anion Gap 21 mmol/L (10-20); BUN (Urea Nitrogen) 97 mg/dL (8.9-20.6); Bilirubin, Total 0.2 mg/dL (0.2-1.2); Calc. Creatinine Clearance 0 mL/min (70-130); Calcium 6.5 mg/dL (7.8-10.44); Carbon Dioxide 18 mmol/L (22-29); Chloride 103 mmol/L (98-107); Estimated GFR-MDRD 5; Globulin 2.4 g/dL (2.4-3.5); Glucose 91 mg/dL (70-105); Potassium 6.1 mmol/L (3.5-5.1); Protein, Total 5.8 g/dL (6.0-8.3); Sodium 136 mmol/L (136-145)
--- NOTE | 2019-08-04 13:21 | RAD ---
1 VIEW CHEST: Date: 08/04/19 COMPARISON: 07/26/19. HISTORY: Nausea and dizziness. FINDINGS: Stable right-sided HemoSplit dialysis catheter. Persistent cardiomegaly. Pulmonary vessels are within normal limits. Costophrenic angles are clear. No masses or consolidation. Patchy interstitial opacit ies may represent edema. No consolidation with air bronchograms. No pneumothorax or osseous abnormali ties. IMPRESSION: Volume overload. POS: TPC
[2019-08-04] MEDS ORDERED: Heparin 10,000 UNITS/1 ML VIAL ONE (15:00)
--- NOTE | 2019-08-06 13:38 | EKG ---
Test Reason : Blood Pressure : / mmHG Vent. Rate : 072 BPM Atrial Rate : 072 BPM P-R Int : 158 ms QRS Dur : 102 ms QT Int : 436 ms P-R-T Axes : 009 033 045 degrees QTc Int : 477 ms Normal sinus rhythm Normal ECG Confirmed by PATRICIA TREADWELL D.O. ([id number]), telegraph editor CL KERR ([id number] on 08/06/2019 1:38:35 PM Referred By: Confirmed By:PATRICIA TREADWELL D.O.
== END 2019-08-04 20:12 | disposition home or self-care (01) ==
LOC: ERS 10:44
DX: I12.0 Hypertensive chronic kidney disease with stage 5 chronic kidney disease or end stage renal disease (principal); N18.6 End stage renal disease; D63.1 Anemia in chronic kidney disease; E87.5 Hyperkalemia; E11.22 Type 2 diabetes mellitus with diabetic chronic kidney disease; Z79.4 Long term (current) use of insulin; Z99.2 Dependence on renal dialysis
CPT/HCPCS: 71045; 80053; 83880; 84484; 85025; 90935; 93005; G0257; J1644

== ENCOUNTER 2019-08-08 10:36 | Emergency (ER) | payer SELFPAY ==
[2019-08-08 11:26] LABS: #Basophils 0.1 thou/uL (0.0-0.2); #Eosinphils 0.2 thou/uL (0.0-0.7); #Lymphocytes 1.2 thou/uL (1.20-3.40); #Monocytes 0.5 thou/uL (0.11-0.59); #Neutrophils 5.4 thou/uL (1.40-6.50); %Basophils 0.9 % (0.0-1.0); %Eosinophils 2.1 % (0.0-10.0); %Lymphocytes 15.8 % (21.0-51.0); %Monocytes 7.2 % (0.0-10.0); Hemoglobin 7.6 g/dL (14.0-18.0); Mean Corpuscular HGB CONC 33.7 g/dL (32.0-36.0); Mean Corpuscular Hemoglobin 30.5 pg (27.0-31.0); Mean Corpuscular Volume 90.3 fL (78.0-98.0); Mean Platelet Volume 6.9 fL (7.4-10.4); Platelet Count 329 thou/uL (130-400); RBC Distribution Width 12.8 % (11.5-14.5); White Blood Cell (WBC) Count 7.3 thou/uL (4.8-10.8)
[2019-08-08 11:51] LABS: ALT (SGPT) Less than 7 U/L (8-55); AST (SGOT) 10 U/L (5-34); Albumin 3.3 g/dL (3.5-5.0); Alkaline Phosphatase 101 U/L (40-150); Anion Gap 19 mmol/L (10-20); BUN (Urea Nitrogen) 96 mg/dL (8.9-20.6); Bilirubin, Total 0.3 mg/dL (0.2-1.2); Calc. Creatinine Clearance 0 mL/min (70-130); Calcium 6.6 mg/dL (7.8-10.44); Carbon Dioxide 20 mmol/L (22-29); Chloride 103 mmol/L (98-107); Estimated GFR-MDRD 6; Globulin 2.5 g/dL (2.4-3.5); Glucose 203 mg/dL (70-105); Potassium 6.4 mmol/L (3.5-5.1); Protein, Total 5.8 g/dL (6.0-8.3); Sodium 136 mmol/L (136-145)
[2019-08-08] MEDS ORDERED: Ondansetron ODT 4 MG TAB ONE (13:35)
--- NOTE | 2019-08-08 13:48 | RAD ---
XR Chest 1 View Portable HISTORY: Generalized weakness COMPARISON: 08/04/2019 FINDINGS: The heart size is normal. The lungs are well expanded without focal areas of consolidation, pneumothorax or pleural effusions. Right-sided dialysis catheter remains in place. IMPRESSION: No radiographic evidence of acute cardiopulmonary process.
[2019-08-08] MEDS ORDERED: Heparin 10,000 UNITS/1 ML VIAL ONE (15:00)
[2019-08-08] MEDS ORDERED: EPOETIN ALFA-EPBX (ESRD) 10,000 UNIT/ML VIAL IVP SCH (15:30)
--- NOTE | 2019-08-08 18:18 | CON ---
DATE OF CONSULTATION: 08/08/2019 CONSULTING PHYSICIAN: Dr. Leone. REASON FOR CONSULTATION: End-stage renal disease evaluation and care. REASON FOR ADMISSION: Need for dialysis. HISTORY OF PRESENT ILLNESS: This is a 44-year-old male with history of type 2 diabetes, end-stage renal disease, and hypertension, who is undocumented and unable to have regular session of dialysis as outpatient, came to the hospital with weakness and not feeling well and was found to have potassium of 6.4. No nausea or vomiting. No chest pain or palpitation. PAST MEDICAL HISTORY: Positive for type 2 diabetes, hypertension, edema, and end-stage renal disease. PAST SURGICAL HISTORY: Dialysis access placement. HOME MEDICATIONS: Reviewed. ALLERGIES: NO KNOWN DRUG ALLERGIES. SOCIAL HISTORY: History of smoking and alcohol use. FAMILY HISTORY: No history of kidney disease. REVIEW OF SYSTEMS: CONSTITUTIONAL: Negative for weight loss or gain, ability to conduct usual activities. SKIN: Negative for rash, itching. EYES: Negative for double vision, pain. ENT/MOUTH: Negative for nose bleeding, neck stiffness, pain, tenderness. CARDIOVASCULAR: Negative for palpitations, dyspnea on exertion, orthopnea. RESPIRATORY: Negative for shortness of breath, wheezing, cough, hemoptysis, fever or night sweats. GASTROINTESTINAL: Negative for poor appetite, abdominal pain, heartburn, nausea, vomiting, constipation, or diarrhea. GENITOURINARY: Negative for urgency, frequency, dysuria, nocturia. MUSCULOSKELETAL: Negative for pain, swelling. NEUROLOGIC/PSYCHIATRIC: Negative for anxiety, depression. ALLERGY/IMMUNOLOGIC: Negative for skin rash, bleeding tendency. PHYSICAL EXAMINATION: GENERAL: This is a well-built male, in no apparent distress. VITAL SIGNS: Temperature 98.6, pulse 75, respiratory rate 18, and blood pressure 134/84. HEENT: Atraumatic and normocephalic. Oral mucosa moist. NECK: Supple. CV: S1 and S2. Rate and rhythm regular. RESPIRATORY: Regular . GI: Abdomen is soft. MUSCULOSKELETAL: 1+ edema. DERMATOLOGIC: No skin rash. NEUROLOGIC: Alert and awake. PSYCHIATRIC: Normal mood and affect LABORATORY DATA: Hemoglobin 7.6. Potassium 6.4, BUN is 96, and creatinine is 9.9. ASSESSMENT AND PLAN: 1. End-stage renal disease. The patient will get dialyzed from the ER and plan is to send home. 2. Hyperkalemia, low potassium with education given pamphlet. 3. Edema, controlled. 4. Hypertension, stable. 5. Anemia. We will add Epogen. 6. Hypoalbuminemia. 7. Prognosis, guarded. The patient was advised to remove the PD catheter as soon as possible. Follow with surgery and also follow with Dr. Antonio for further followup and limit potassium. The patient otherwise high risk for sudden cardiac arrest. The patient understands that. Job ID: [id number]
--- NOTE | 2019-08-13 13:28 | EKG ---
Test Reason : Blood Pressure : / mmHG Vent. Rate : 072 BPM Atrial Rate : 072 BPM P-R Int : 168 ms QRS Dur : 092 ms QT Int : 436 ms P-R-T Axes : 039 030 049 degrees QTc Int : 477 ms Normal sinus rhythm Normal ECG Confirmed by CHUCKY KAUFMAN, EMILIA ([id number]), editor index CL KERR ([id number]) on 08/13/2019 1:28:04 PM Referred By: Confirmed By:EMILIA LOCKE MD
== END 2019-08-08 21:03 | disposition still patient (30) ==
LOC: ERS 10:36
DX: I12.0 Hypertensive chronic kidney disease with stage 5 chronic kidney disease or end stage renal disease (principal); E11.22 Type 2 diabetes mellitus with diabetic chronic kidney disease; N18.6 End stage renal disease; D64.9 Anemia, unspecified; E87.5 Hyperkalemia; Z79.4 Long term (current) use of insulin; Z99.2 Dependence on renal dialysis
CPT/HCPCS: 71045; 80053; 83880; 84484; 85025; 90935; 93005; G0257; J1644; Q0162; Q5105

== ENCOUNTER 2019-08-12 15:01 | Emergency (ER) | payer SELFPAY ==
[~2019-08-12 15:01] MED LIST: Heparin 1,000 UNITS/ML VIAL ONE
[2019-08-12 15:33] LABS: #Basophils 0.1 thou/uL (0.0-0.2); #Eosinphils 0.2 thou/uL (0.0-0.7); #Lymphocytes 1.2 thou/uL (1.20-3.40); #Monocytes 0.6 thou/uL (0.11-0.59); #Neutrophils 5.2 thou/uL (1.40-6.50); %Basophils 1.2 % (0.0-1.0); %Eosinophils 2.7 % (0.0-10.0); %Lymphocytes 16.4 % (21.0-51.0); %Monocytes 8.5 % (0.0-10.0); %Neutrophils 71.2 % (42.0-75.0); Hemoglobin 7.4 g/dL (14.0-18.0); Mean Corpuscular HGB CONC 33.5 g/dL (32.0-36.0); Mean Corpuscular Hemoglobin 30.6 pg (27.0-31.0); Mean Corpuscular Volume 91.4 fL (78.0-98.0); Mean Platelet Volume 6.6 fL (7.4-10.4); Platelet Count 378 thou/uL (130-400); RBC Distribution Width 12.9 % (11.5-14.5); Red Blood Cell (RBC) Count 2.43 mill/uL (4.70-6.10); White Blood Cell (WBC) Count 7.3 thou/uL (4.8-10.8)
[2019-08-12 15:53] LABS: ALT (SGPT) 7 U/L (8-55); AST (SGOT) 9 U/L (5-34); Albumin 3.4 g/dL (3.5-5.0); Alkaline Phosphatase 106 U/L (40-150); Anion Gap 17 mmol/L (10-20); BUN (Urea Nitrogen) 93 mg/dL (8.9-20.6); Bilirubin, Total 0.3 mg/dL (0.2-1.2); Calc. Creatinine Clearance 0 mL/min (70-130); Calcium 6.1 mg/dL (7.8-10.44); Carbon Dioxide 21 mmol/L (22-29); Chloride 103 mmol/L (98-107); Estimated GFR-MDRD 5; Globulin 2.6 g/dL (2.4-3.5); Glucose 99 mg/dL (70-105); Potassium 5.1 mmol/L (3.5-5.1); Sodium 136 mmol/L (136-145)
[2019-08-12] MEDS ORDERED: EPOETIN ALFA-EPBX (ESRD) 10,000 UNIT/ML VIAL IVP SCH (20:00)
--- NOTE | 2019-08-15 08:01 | CON ---
DATE OF CONSULTATION: 08/12/2019 CONSULTING PHYSICIAN: Ned Ervin DO REASON FOR CONSULT: End-stage renal disease evaluation and care. REASON FOR ADMISSION: Need for dialysis. HISTORY OF PRESENT ILLNESS: This is a 44-year-old male with history of type 2 diabetes, end-stage renal disease, undocumented and never did have regular dialysis session of outpatient but gets dialysis from the ER, came to the hospital with tingling in the leg and also swelling. He is being asked to get dialysis from the ER by the ER doctor. The patient denies any chest pain. He does have a PD catheter, which he is hesitant to remove despite repeated counseling and now he is complaining of bloody discharge. PAST MEDICAL HISTORY: Positive for type 2 diabetes, hypertension, edema, and end-stage renal disease. PAST SURGICAL HISTORY: Dialysis access placement. HOME MEDICATIONS: Include: 1. Humulin. 2. Vitamin D. 3. Coreg. 4. Norvasc. ALLERGIES: NO KNOWN DRUG ALLERGIES. SOCIAL HISTORY: The patient reports smoking and alcohol use. No illicit drug abuse. FAMILY HISTORY: No history of kidney disease. REVIEW OF SYSTEMS: CONSTITUTIONAL: Negative for weight loss or gain, ability to conduct usual activities. SKIN: Negative for rash, itching. EYES: Negative for double vision, pain. ENT/MOUTH: Negative for nose bleeding, neck stiffness, pain, tenderness. CARDIOVASCULAR: Negative for palpitations, dyspnea on exertion, orthopnea. RESPIRATORY: Negative for shortness of breath, wheezing, cough, hemoptysis, fever or night sweats. GASTROINTESTINAL: Negative for poor appetite, abdominal pain, heartburn, nausea, vomiting, constipation, or diarrhea. GENITOURINARY: Negative for urgency, frequency, dysuria, nocturia. MUSCULOSKELETAL: Negative for pain, swelling. NEUROLOGIC/PSYCHIATRIC: Negative for anxiety, depression. ALLERGY/IMMUNOLOGIC: Negative for skin rash, bleeding tendency. PHYSICAL EXAMINATION: GENERAL: This is a well-built male, in no apparent distress. VITAL SIGNS: Temperature 98.8, pulse 78, respiratory rate 18, and blood pressure 148/70. HEENT: Atraumatic and normocephalic. Oral mucosa moist. NECK: Supple. CV: S1 and S2. Rate and rhythm regular. RESPIRATORY: Clear. GI: Abdomen is soft. MUSCULOSKELETAL: 1+ edema. DERMATOLOGIC: No skin rash. NEUROLOGIC: Alert and awake. Moving all the extremities. PSYCHIATRIC: Normal mood and affect. LABORATORY DATA: Hemoglobin 7.4, potassium 5.1, BUN is 93, creatinine is 11.1. ASSESSMENT AND PLAN: 1. End-stage renal disease. We will have dialysis in the ER. 2. Hyperkalemia. Limit potassium intake. 3. Edema, controlled. 4. Anemia. We will give a dose of Epogen. 5. Hypertension, stable. 6. Hypoalbuminemia . 7. Plan is to have dialysis as tolerated. The patient was encouraged to have PD catheter removed. We will have PD catheter flushed by the nurse. Prognosis is guarded. Job ID: [id number]
[2019-08-15] MEDS ORDERED: EPOETIN ALFA-EPBX (ESRD) 10,000 UNIT/ML VIAL IVP SCH (09:00)
== END 2019-08-12 23:40 | disposition home or self-care (01) ==
LOC: ERS 15:01
DX: N17.9 Acute kidney failure, unspecified (principal); I12.9 Hypertensive chronic kidney disease with stage 1 through stage 4 chronic kidney disease, or unspecified chronic kidney disease; N18.9 Chronic kidney disease, unspecified; E11.22 Type 2 diabetes mellitus with diabetic chronic kidney disease; Z79.4 Long term (current) use of insulin
CPT/HCPCS: 36415; 80053; 85025; 90935; 93005; G0257; J1644; Q5105

== ENCOUNTER 2019-08-19 11:09 | Inpatient (IN) | payer MEDICAID, SELFPAY ==
[~2019-08-19 11:09] MED LIST changes: +PROPOFOL 200 MG/20 ML VIAL ONE; +Succinylcholine Chloride 20 MG/ML 10 ml SYRINGE FS ONE
[2019-08-19] MEDS ORDERED: Heparin 1,000 UNITS/ML VIAL ONE (11:11)
[2019-08-19 11:34] LABS: #Eosinphils 0.3 thou/uL (0.0-0.7); #Lymphocytes 0.9 thou/uL (1.20-3.40); #Monocytes 0.5 thou/uL (0.11-0.59); #Neutrophils 5.3 thou/uL (1.40-6.50); %Basophils 0.6 % (0.0-1.0); %Eosinophils 4.1 % (0.0-10.0); %Lymphocytes 12.9 % (21.0-51.0); %Neutrophils 75.4 % (42.0-75.0); Hemoglobin 7.5 g/dL (14.0-18.0); Mean Corpuscular HGB CONC 34.9 g/dL (32.0-36.0); Mean Corpuscular Hemoglobin 31.5 pg (27.0-31.0); Mean Corpuscular Volume 90.4 fL (78.0-98.0); Platelet Count 293 thou/uL (130-400); RBC Distribution Width 13.6 % (11.5-14.5); Red Blood Cell (RBC) Count 2.37 mill/uL (4.70-6.10)
[2019-08-19 11:54] LABS: ALT (SGPT) 9 U/L (8-55); AST (SGOT) 12 U/L (5-34); Albumin 3.2 g/dL (3.5-5.0); Alkaline Phosphatase 98 U/L (40-110); Anion Gap 20 mmol/L (10-20); BUN (Urea Nitrogen) 98 mg/dL (8.9-20.6); Bilirubin, Total 0.3 mg/dL (0.2-1.2); Calc. Creatinine Clearance 0 mL/min (70-130); Carbon Dioxide 16 mmol/L (22-29); Chloride 105 mmol/L (98-107); Estimated GFR-MDRD 5; Globulin 2.7 g/dL (2.4-3.5); Glucose 112 mg/dL (70-105); Potassium 5.4 mmol/L (3.5-5.1); Protein, Total 5.9 g/dL (6.0-8.3); Sodium 136 mmol/L (136-145)
--- NOTE | 2019-08-19 12:51 | PDOC.HHP ---
Hospitalist HPI - History of Present Illness dyspnea ED Course: 44 y/o hypertensive, diabetic male on compassionate hemodialysis, last hemodialysis per patient was approximately 1 month ago, presents to the ER with one day history of dyspnea on exertion without chest pain, cough, fever, or chills. Reports compliance with medications. In the emergency room per ER physician was found to be mildly lethargic with transient confusion that is now resolved, referred to the hospitalist for admission due to uremia with hyperkalemia and hemodialysis. Nephrology has been consulted from the ER and plans for removal of PD catheter arranged in ER. I have seen and evaluated patient in the ER where he is able to provide a reliable history. Hospitalist ROS - Review of Systems Constitutional: denies: fever, chills Eyes: denies: pain, vision change ENT: denies: throat pain, throat swelling Respiratory: reports: SOB with excertion. denies: wheezing Cardiovascular: denies: chest pain, palpitations Gastrointestinal: denies: nausea, vomiting, abdominal pain Genitourinary: denies: incontinence, hematuria Musculoskeletal: denies: shoulder pain, back pain Neurological: denies: weakness, numbness All other systems reviewed; all pertinent +/- noted in HPI/Subj - Exam General Appearance: NAD, awake alert Eye: PERRL, anicteric sclera ENT: normocephalic atraumatic, dry oral mucosa Neck: supple, no JVD Heart: RRR, no murmur Respiratory: no wheezes, no rales, no ronchi Gastrointestinal: soft, non-tender, non-distended, normal bowel sounds Extremities: no cyanosis, no clubbing Skin: normal turgor, no lesions Neurological: cranial nerve grossly intact, no focal deficits Musculoskeletal: normal tone, normal strength Psychiatric: normal affect, normal behavior, A&O x 3 Hospitalist Results - Labs Result Diagrams: 08/19/19 11:23 08/19/19 11:23 Lab results: WBC 7.0 thou/uL (4.8-10.8) 08/19/19 11:23 Hgb 7.5 g/dL (14.0-18.0) L 08/19/19 11:23 Hct 21.4 % (42.0-52.0) L 08/19/19 11:23 MCV 90.4 fL (78.0-98.0) 08/19/19 11:23 Plt Count 293 thou/uL (130-400) 08/19/19 11:23 Neutrophils % 75.4 % (42.0-75.0) H 08/19/19 11:23 Sodium 136 mmol/L (136-145) 08/19/19 11:23 Potassium 5.4 mmol/L (3.5-5.1) H 08/19/19 11:23 Chloride 105 mmol/L (98-107) 08/19/19 11:23 Carbon Dioxide 16 mmol/L (22-29) L 08/19/19 11:23 BUN 98 mg/dL (8.9-20.6) H 08/19/19 11:23 Creatinine 11.68 mg/dL (0.7-1.3) H 08/19/19 11:23 Glucose 112 mg/dL (70-105) H 08/19/19 11:23 Calcium 6.0 mg/dL (7.8-10.44) L 08/19/19 11:23 Total Bilirubin 0.3 mg/dL (0.2-1.2) 08/19/19 11:23 AST 12 U/L (5-34) 08/19/19 11:23 ALT 9 U/L (8-55) 08/19/19 11:23 Alkaline Phosphatase 98 U/L (40-110) 08/19/19 11:23 Serum Total Protein 5.9 g/dL (6.0-8.3) L 08/19/19 11:23 Albumin 3.2 g/dL (3.5-5.0) L 08/19/19 11:23 Hospitalist H&P A/P - Problem (1) Uremia, acute Code(s): N19 - UNSPECIFIED KIDNEY FAILURE Status: Acute Assessment and Plan: nephrology consulted for emergent hemodialysis; repeat BMP (2) DM2 (diabetes mellitus, type 2) Status: Acute Qualifiers: Diabetes mellitus correction insulin use: with exterminator helper use Diabetes mellitus complication status: with kidney complications Diabetes mellitus complication detail: with chronic kidney disease Chronic kidney disease stage : on chronic dialysis Qualified Code(s): E11.22 - Type 2 diabetes mellitus with diabetic chronic kidney disease; N18.6 - End stage renal disease; Z79.4 - care home (current) use of insulin; Z99.2 - Dependence on renal dialysis Assessment and Plan: nephrology consulted for hemodialysis, will repeat labs in the morning (3) ESRD (end stage renal disease) on dialysis Code(s): N18.6 - END STAGE RENAL DISEASE; Z99.2 - DEPENDENCE ON RENAL DIALYSIS Status: Acute Assessment and Plan: nephrology consulted; PD catheter to be removed (4) Hyperkalemia Code(s): E87.5 - HYPERKALEMIA Status: Acute Assessment and Plan: hemodialysis today, campus monitor, repeat BMP (5) Metabolic acidosis Code(s): E87.2 - ACIDOSIS Status: Acute (6) Urinary retention Code(s): R33.9 - RETENTION OF URINE, UNSPECIFIED Status: Chronic
--- NOTE | 2019-08-19 13:52 | CON ---
DATE OF CONSULTATION: REASON FOR CONSULTATION: Uremia and acidosis and hyperkalemia. HISTORY OF PRESENT ILLNESS: This is a 44-year-old gentleman, being seen for end-stage renal disease. The patient denies any nausea, vomiting, or chest pain. SOCIAL HISTORY: No alcohol or drug use. FAMILY HISTORY: Negative for ESRD. ALLERGIES: REVIEWED. REVIEW OF SYSTEMS: A 15-point review of system was performed, negative except for positives noted above. GENERAL: HEAD: NECK: No swelling or lumps. NOSE: No epistaxis or discharge. EYES: No diplopia or pain. RESPIRATORY: CARDIOVASCULAR: GASTROINTESTINAL: /GROUP WORKER: MUSCULOSKELETAL: No joint pain. NEUROPSYCHIATIC SYSTEMS: No suicidal ideation. No ideation. SKIN: Denies any rash or ulcer. CONSTITUTIONAL: No fever or chills. PHYSICAL EXAMINATION: CONSTITUTIONAL: The patient is awake and alert. VITAL SIGNS: Pulse 75, breathing 16, and blood pressure 130/70. GENERAL APPEARANCE AND MENTAL STATUS: Fair. HEAD/NECK: Normocephalic. Atraumatic. EYES: EOMI. No deformity. EARS: Clear. No ulcers. NOSE: Intact. No lesions. MOUTH: Clear. No discharge. THROAT: Clear. No exudate. LUNGS: Clear. No crackles. CARDIAC: S1, S2. No rub. ABDOMEN: Benign. Bowel sounds positive. GENITALIA/RECTUM: Ardon absent. BACK/EXTREMITIES: Edema 0+. NEUROLOGICAL: Alert and motor intact. SKIN: LYMPHATICS: LABORATORY DATA: Labs reviewed. ASSESSMENT AND PLAN: Stage 6 chronic kidney disease, plan dialysis. Hypertension, stable. Anemia, stable. Hyperkalemia, plan dialysis. We will order a stat PD catheter removal. Surgery will do that tomorrow. The patient's catheter appears dirty. We will need removal. Job ID: [id number]
--- NOTE | 2019-08-19 13:54 | RAD ---
Exam: Chest one view HISTORY:Shortness of breath Comparison: 08/08/2019 FINDINGS: Cardiac silhouette:Negative. Lines and tubes: Stable right-sided HemoSplit dialysis catheter Aorta: Unremarkable Pulmonary vessels: Normal Costophrenic angles: Clear LUNGS: No masses or consolidation. Pneumothorax: None Osseous abnormalities: None IMPRESSION: 1. Cardiomegaly. No evidence of congestive heart failure.
[2019-08-19 14:33] LABS: Phosphorus 9.5 mg/dL (2.3-4.7)
[2019-08-19] MEDS ORDERED: Dextrose 5% in Water 1,000 ML IV PRN (17:38)
[2019-08-19] MEDS ORDERED: Dextrose 50% Abboject 50 ML SYRINGE SLOW IVP PRN (17:38)
[2019-08-19] MEDS ORDERED: Senokot S 8.6-50 MG TAB PO PRN (17:38)
[2019-08-19] MEDS ORDERED: HYDROcodone/Acetaminophen 5/325 mg Tablet PO PRN (17:38)
[2019-08-19] MEDS ORDERED: Acetaminophen 325 MG TAB PO PRN (17:38)
[2019-08-19] MEDS ORDERED: Ondansetron PF 4 MG/2 ML Vial IVP PRN (17:38)
[2019-08-19] MEDS ORDERED: Lidocaine 2% PF 5 ML VIAL ONE ×2 (17:54→19:28)
[2019-08-19] MEDS ORDERED: Bupivacaine HCl 0.5%/Epinephrine 1:200,000/PF 30 ml Vial ONE (17:54)
[2019-08-19] MEDS ORDERED: Promethazine HCl 25 MG/ML VIAL SLOW IVP PRN (18:08)
[2019-08-19] MEDS ORDERED: Promethazine HCl 25 MG/ML VIAL IM PRN (18:08)
[2019-08-19] MEDS ORDERED: Ondansetron HCl/PF 4 MG/2 ML Vial IVP PRN (18:08)
[2019-08-19] MEDS ORDERED: Fentanyl 100 MCG/2 ML VIAL ONE ×2 (19:24→20:03)
[2019-08-19] MEDS ORDERED: Midazolam HCl 2 mg/2 ml Vial ONE (19:24)
[2019-08-19] MEDS ORDERED: Bupivacaine/Epinephrine 0.25% 30 ML VIAL ONE (19:28)
[2019-08-19] MEDS ORDERED: Naloxone HCl 0.4 mg/ml Vial ONE (20:10)
[2019-08-19] MEDS: traMADol HCl 50 MG TAB PO PRN (21:34)
[2019-08-19] MEDS: hydrALAZINE 20 MG/ML VIAL SLOW IVP PRN (21:35)
[2019-08-19] MEDS: Heparin 5,000 UNITS/ML VIAL SC SCH (21:37)
--- NOTE | 2019-08-19 21:39 | PRG ---
DATE OF SERVICE: 08/19/2019 Wilson Noyola is an illegal citizen and I placed a PD catheter. The patient refused to allow me to remove it. He presents now in need of dialysis with lethargy and hyperkalemia. I have been asked to remove his PD catheter. The patient is agreeable. He does not have the funds to do peritoneal dialysis. The patient last month had a fistula placed in his left arm. He has outflow through the cephalic and basilic vein and intraoperatively, it was noted the cephalic vein was smaller and basilic vein was much larger. It was likely that he would need a basilic vein transposition fistula. On exam, he does have a good signal in his cephalic vein outflow with occlusion of basilic vein. I would recommend a fistulogram. The patient, however, does not have any funds, there is noncompliance in followup. He insisted on going home during the week to work. I would recommend a fistulogram in left arm in the future and a basilic vein transposition fistula is likely necessary, but that is pending the angiogram evaluation of his left arm fistula. It is imperative that we work toward establishing a permanent access to prevent line sepsis and admissions for that. I would suggest that we do a fistulogram next week. The patient insists on going home. He should have that done on followup admission. Job ID: [id number]
--- NOTE | 2019-08-20 02:20 | OP ---
DATE OF PROCEDURE: 08/19/2019 PREOPERATIVE DIAGNOSIS: End-stage renal disease PD catheter ( peritoneal dialysis). ANESTHESIA: TIVA, local 0.5% Marcaine with epinephrine 30 mL mixed with 2% Xylocaine 10 mL. PROCEDURE PERFORMED: Removal of PD catheter, double cuffed PD. DESCRIPTION OF PROCEDURE: The patient was taken to the operating room, where under intervenous sedation, abdomen was prepared with ChloraPrep and draped in routine fashion. Catheter transected and the catheter cuffs x2 dissected free from the subcutaneous tissue into the rectus sheath and catheter removed intact and wound dressing applied. The patient tolerated the procedure well. Job ID: [id number]
[2019-08-20 04:52] LABS: #Eosinphils 0.3 thou/uL (0.0-0.7); #Lymphocytes 0.8 thou/uL (1.20-3.40); #Monocytes 0.6 thou/uL (0.11-0.59); %Basophils 0.3 % (0.0-1.0); %Eosinophils 4.8 % (0.0-10.0); %Lymphocytes 12.3 % (21.0-51.0); %Monocytes 8.2 % (0.0-10.0); %Neutrophils 74.4 % (42.0-75.0); Hemoglobin 8.1 g/dL (14.0-18.0); Mean Corpuscular HGB CONC 34.3 g/dL (32.0-36.0); Mean Corpuscular Hemoglobin 30.9 pg (27.0-31.0); Mean Corpuscular Volume 90.3 fL (78.0-98.0); Mean Platelet Volume 6.8 fL (7.4-10.4); Platelet Count 310 thou/uL (130-400); RBC Distribution Width 13.6 % (11.5-14.5); Red Blood Cell (RBC) Count 2.63 mill/uL (4.70-6.10); White Blood Cell (WBC) Count 6.7 thou/uL (4.8-10.8)
[2019-08-20 05:11] LABS: Anion Gap 16 mmol/L (10-20); BUN (Urea Nitrogen) 52 mg/dL (8.9-20.6); Calc. Creatinine Clearance 16 mL/min (70-130); Calcium 6.9 mg/dL (7.8-10.44); Carbon Dioxide 23 mmol/L (22-29); Chloride 103 mmol/L (98-107); Estimated GFR-MDRD 8; Glucose 129 mg/dL (70-105); Potassium 3.9 mmol/L (3.5-5.1); Sodium 138 mmol/L (136-145)
[2019-08-20 08:47] LABS: Phosphorus 7.1 mg/dL (2.3-4.7)
[2019-08-20] MEDS ORDERED: Heparin 1,000 UNITS/ML VIAL ONE (11:11)
[2019-08-20] MEDS: Heparin 5,000 UNITS/ML VIAL SC SCH ×3 (11:57→22:00)
[2019-08-20] MEDS: hydrALAZINE 20 MG/ML VIAL SLOW IVP PRN (11:58)
[2019-08-20 12:22] VITALS: BMI 29.9
--- NOTE | 2019-08-20 12:31 | CON ---
DATE OF CONSULTATION: HISTORY OF PRESENT ILLNESS: Wilson Noyola is a 44-year-old male patient, illegal immigrant without financial resources, presents to the emergency room for dialysis he feels poorly. I saw him on July 26, 2019, and he had placement of a left arm fistula, hemodialysis catheter, and laparoscopic peritoneal dialysis catheter. It was subsequently discovered that he was illegal, did not have any financial resources, and could not do peritoneal dialysis. I was requested to remove his PD catheter prior to discharge, but the patient refused to have it removed thinking that he would speak to his estate attorney and hopefully gain resources to have peritoneal dialysis. This, however, has not occurred, and I have been asked again to see him for removal of his peritoneal dialysis catheter. The patient has not taken care of it, it is not well maintained. There is risk of infection. The patient has a right IJ cuffed tunneled dialysis catheter. He has a left arm primary fistula, perforating branch of antecubital vein to the proximal radial artery outflow, primarily the basilic vein, which is much larger. Cephalic vein in the upper arm is small. It was felt he will probably need a basilic vein transposition fistula in the future. In the future, when he is admitted during the week, we should plan basilic vein transposition fistula to move towards removal of his HD catheter. ALLERGIES: NONE. MEDICATIONS: 1. Coreg 6.25 mg b.i.d. 2. Norvasc 5 mg daily. 3. Humulin insulin 70/30, 10 units p.m. PAST MEDICAL HISTORY: Diabetes mellitus, hypertension, and end-stage renal disease. PAST SURGICAL HISTORY: As noted above. PHYSICAL EXAMINATION: VITAL SIGNS: Weight 81 kg, blood pressure 159/80, heart rate 81, respiratory rate 19, temperature 97.7 degrees. HEAD, EARS, EYES, NOSE, AND THROAT: Unremarkable. LUNGS: Clear to auscultation. CARDIAC: Regular rate and rhythm. No murmur or gallop. ABDOMEN: Soft. cephalic vein outflow is patent. When I occluded the basilic vein, he has a good signal in his cephalic vein, but it seemed to be small. ASSESSMENT AND PLAN: 1. End-stage renal disease, . He had confusion, lethargy, presents for emergent dialysis. Hemoglobin is 7.5, potassium 5.4, creatinine 11, BUN 98, and GFR 5. We would plan removal of his PD catheter as there is no potential for PD in the future with his lack of financial resources. 2. The patient should avoid antecubital IVs and he has a right arm antecubital IV. This should not be performed in the chronic kidney disease patient. This should be avoided in fact. We will remove it as soon as possible. . 3. In the future, when he is admitted, he will need a fistulogram and more likely a basilic vein transposition fistula. This should be performed to prevent line sepsis from his hemodialysis catheter. We should move towards permanent dialysis access meterman. [place]. 4. Diabetes mellitus. 5. Hypertension. Job ID: [id number]
--- NOTE | 2019-08-20 14:32 | PRG ---
DATE OF SERVICE: SUBJECTIVE: This is a 44-year-old gentleman, being seen for end-stage kidney disease. The patient denied any nausea, vomiting, or chest pain. OBJECTIVE: CONSTITUTIONAL: The patient is awake and alert. VITAL SIGNS: Pulse 82, breathing 16, blood pressure was 157/89. GENERAL APPEARANCE AND MENTAL STATUS: Fair. HEAD/NECK: Normocephalic. Atraumatic. EYES: EOMI. No deformity. EARS: Clear. No ulcers. NOSE: Intact. No lesions. MOUTH: Clear. No discharge. THROAT: Clear. No exudate. LUNGS: Clear. No crackles. CARDIAC: S1, S2. No rub. ABDOMEN: Benign. Bowel sounds positive. GENITALIA/RECTUM: Ardon absent. BACK/EXTREMITIES: Edema 0+. NEUROLOGICAL: Alert and motor intact. SKIN: LYMPHATICS: LABORATORY DATA: Hemoglobin 8.1. ASSESSMENT AND PLAN: 1. Stage chronic kidney disease, stable. 2. Hypertension, stable. 3. Anemia, stable. 4. PD catheter was removed. 5. Hyperphosphatemia, advised to take with every meal. Job ID: [id number]
--- NOTE | 2019-08-20 16:17 | PDOC.HOSPP ---
- Subjective Encounter Date: 08/20/19 Subjective: has complaints, seen while on dialysis, wants to go home, PD catheter removed; no other events overnight - Objective Vital Signs & Weight: Vital Signs (12 hours) Temp Pulse Resp BP Pulse Ox 08/20/19 12:00 98.1 F 79 16 191/92 H 100 08/20/19 11:58 82 08/20/19 07:36 99.0 F 82 16 157/89 H 99 08/20/19 07:30 99 Weight Admit Weight 191 lb Weight 191 lb I&O: 08/19/19 08/20/19 08/21/19 06:59 06:59 06:59 Intake Total 480 Balance 480 Result Diagrams: 08/20/19 04:42 08/20/19 04:42 Additional Labs: Accuchecks 08/20/19 08/19/19 08/19/19 05:43 21:13 18:13 POC Glucose 125 H 117 H 92 Hospitalist ROS - Review of Systems Respiratory: denies: shortness of breath Cardiovascular: denies: chest pain Gastrointestinal: denies: abdominal pain - Medication Medications: Active Medications Generic Name Dose Route Start Last Admin Trade Name Freq PRN Reason Stop Dose Admin Heparin Sodium (Porcine) 5,000 units 08/19/19 21:00 08/20/19 11:57 Heparin SC Not Given TID [facility] Hydralazine HCl 10 mg 08/19/19 17:38 08/20/19 11:58 Apresoline SLOW IVP 10 mg Q4H PRN Administration Blood Pressure Ondansetron HCl 4 mg 08/19/19 17:38 08/20/19 07:31 Zofran IVP 4 mg Q6H PRN Administration Nausea/Vomiting Tramadol HCl 50 mg 08/19/19 20:15 08/19/19 21:34 Ultram PO 50 mg Q12H PRN Administration Moderate Pain (4-6) - Exam General Appearance: NAD, awake alert Eye: PERRL, anicteric sclera ENT: normocephalic atraumatic, no oropharyngeal lesions, moist mucosa Neck: supple, symmetric, no JVD, no thyromegaly, no lymphadenopathy, no carotid bruit Heart: RRR, no murmur, no gallops, no rubs, normal peripheral pulses Respiratory: CTAB, no wheezes, no rales, no ronchi, normal chest expansion, no tachypnea, normal percussion Gastrointestinal: soft, non-tender, non-distended, normal bowel sounds, no palpable masses, no hepatomegaly, no splenomegaly, no bruit Extremities: no cyanosis, no clubbing, no edema Skin: normal turgor, no lesions, no rashes Neurological: cranial nerve grossly intact, normal sensation to touch, no weakness, no focal deficits, no new deficit Musculoskeletal: normal tone, normal strength, no muscle wasting Psychiatric: normal affect, normal behavior, A&O x 3 Hosp A/P (1) Uremia, acute Code(s): N19 - UNSPECIFIED KIDNEY FAILURE Status: Acute Plan: s/p hemodialysis; now resolved; continue hemodialysis per nephrology (2) DM2 (diabetes mellitus, type 2) Status: Acute Qualifiers: Diabetes mellitus fdc insulin use: with fdc use Diabetes mellitus complication status: with kidney complications Diabetes mellitus complication detail: with chronic kidney disease Chronic kidney disease stage : on chronic dialysis Qualified Code(s): E11.22 - Type 2 diabetes mellitus with diabetic chronic kidney disease; N18.6 - End stage renal disease; Z79.4 - alf (current) use of insulin; Z99.2 - Dependence on renal dialysis Plan: continue with bedside glucose monitoring and insulin sliding scale (3) ESRD (end stage renal disease) on dialysis Code(s): N18.6 - END STAGE RENAL DISEASE; Z99.2 - DEPENDENCE ON RENAL DIALYSIS Status: Acute Plan: planned venous mapping and fistula on 08/22 (4) Hyperkalemia Code(s): E87.5 - HYPERKALEMIA Status: Acute Plan: now resolved, s/p hemodialysis (5) Metabolic acidosis Code(s): E87.2 - ACIDOSIS Status: Acute Plan: now resolved s/p hemodialysis (6) Urinary retention Code(s): R33.9 - RETENTION OF URINE, UNSPECIFIED Status: Chronic
[2019-08-20] MEDS: Calcium Carbonate 500 MG ChewTAB PO SCH ×2 (17:00→22:00)
[2019-08-20] MEDS: Insulin Regular 300 UNITS/3 ML VIAL SC PRN (18:11)
[2019-08-20] MEDS: Zolpidem Tartrate 5 MG TAB PO PRN (22:22)
[2019-08-21 06:36] LABS: #Basophils 0.1 thou/uL (0.0-0.2); #Eosinphils 0.2 thou/uL (0.0-0.7); #Lymphocytes 0.9 thou/uL (1.20-3.40); #Monocytes 0.6 thou/uL (0.11-0.59); #Neutrophils 3.1 thou/uL (1.40-6.50); %Basophils 1.3 % (0.0-1.0); %Eosinophils 4.2 % (0.0-10.0); %Lymphocytes 18.9 % (21.0-51.0); %Monocytes 12.3 % (0.0-10.0); %Neutrophils 63.3 % (42.0-75.0); Hemoglobin 7.9 g/dL (14.0-18.0); Mean Corpuscular HGB CONC 34.4 g/dL (32.0-36.0); Mean Corpuscular Hemoglobin 31.1 pg (27.0-31.0); Mean Corpuscular Volume 90.3 fL (78.0-98.0); Mean Platelet Volume 7.4 fL (7.4-10.4); Platelet Count 285 thou/uL (130-400); RBC Distribution Width 13.4 % (11.5-14.5); Red Blood Cell (RBC) Count 2.56 mill/uL (4.70-6.10); White Blood Cell (WBC) Count 4.9 thou/uL (4.8-10.8)
[2019-08-21 06:44] LABS: Anion Gap 18 mmol/L (10-20); BUN (Urea Nitrogen) 38 mg/dL (8.9-20.6); Calc. Creatinine Clearance 19 mL/min (70-130); Calcium 7.2 mg/dL (7.8-10.44); Carbon Dioxide 23 mmol/L (22-29); Chloride 102 mmol/L (98-107); Estimated GFR-MDRD 10; Glucose 117 mg/dL (70-105); Potassium 4.5 mmol/L (3.5-5.1); Sodium 138 mmol/L (136-145)
[2019-08-21] MEDS: Heparin 5,000 UNITS/ML VIAL SC SCH ×3 (08:56→20:39)
[2019-08-21] MEDS: Calcium Carbonate 500 MG ChewTAB PO SCH ×3 (08:56→20:39)
[2019-08-21] MEDS: Insulin Regular 300 UNITS/3 ML VIAL SC PRN ×2 (10:55→17:10)
[2019-08-21] MEDS: cloNIDine 0.1 MG TAB PO PRN ×2 (11:06→23:45)
--- NOTE | 2019-08-21 14:50 | PRG ---
DATE OF SERVICE: 08/21/2019 SUBJECTIVE: A 44-year-old gentleman being seen for end-stage renal disease. The patient denied nausea, vomiting, or chest pain. OBJECTIVE: See above. The patient is awake and alert, in no acute distress. VITAL SIGNS: Afebrile, pulse 77, breathing 16, blood pressure 140/77. GENERAL APPEARANCE AND MENTAL STATUS: Fair. HEAD/NECK: Normocephalic. Atraumatic. EYES: EOMI. No deformity. EARS: Clear. No ulcers. NOSE: Intact. No lesions. MOUTH: Clear. No discharge. THROAT: Clear. No exudate. LUNGS: Clear. No crackles. CARDIAC: S1, S2. No rub. ABDOMEN: Benign. Bowel sounds positive. GENITALIA/RECTUM: Ardon absent. BACK/EXTREMITIES: Edema 0+. NEUROLOGICAL: Alert and motor intact. SKIN: LYMPHATICS: LABORATORY DATA: Labs reviewed. ASSESSMENT AND PLAN: 1. End-stage 6 chronic kidney disease. Plan dialysis. 2. Hypertension, stable. 3. Anemia. Plan transfusion tomorrow, if hemoglobin is less than 8. Job ID: [id number]
[2019-08-21] MEDS: Triple Antibiotic Oint 1 GM Packet TOP SCH (16:56)
--- NOTE | 2019-08-21 17:12 | PRG ---
DATE OF SERVICE: 08/21/2019 SUBJECTIVE: Wilson Noyola was seen today. Evaluation of his left arm fistula reveals that he has a patent left cephalic vein outflow, although it is small intraoperatively was appreciated intraoperatively. He may need a basilic vein transposition fistula clinically. We will obtain a fistulogram tomorrow and plan basilic vein transposition fistula if appropriate, although if cephalic vein looks good, it may be that he just needs more time for the fistula to mature. We will plan operative intervention tomorrow in case it is needed, but hopefully, this will not be necessary, but we will await his fistulogram tomorrow. I have discussed with the patient, informed him of these findings. Job ID: [id number]
[2019-08-21] MEDS: Zolpidem Tartrate 5 MG TAB PO PRN (20:39)
--- NOTE | 2019-08-21 21:04 | PDOC.HOSPP ---
- Subjective Encounter Date: 08/21/19 Subjective: patient had hemodialysis yesterday PD catheter removed on 08/19; venous mapping planned for tomorrow; no complains; tolerating oral intake; - Objective Vital Signs & Weight: Vital Signs (12 hours) Temp Pulse Resp BP Pulse Ox 08/21/19 15:08 98.2 F 77 14 157/83 H 98 08/21/19 13:58 77 140/77 08/21/19 11:01 98.4 F 76 14 192/92 H 97 Weight Admit Weight 191 lb Weight 191 lb I&O: 08/20/19 08/21/19 08/22/19 06:59 06:59 06:59 Intake Total 480 Balance 480 Result Diagrams: 08/21/19 05:26 08/21/19 05:26 Additional Labs: Accuchecks 08/21/19 08/21/19 08/21/19 20:46 17:12 10:45 POC Glucose 166 H 173 H 207 H 08/21/19 08/20/19 05:57 20:14 POC Glucose 126 H 115 H Hospitalist ROS - Review of Systems Respiratory: denies: shortness of breath Cardiovascular: denies: chest pain Gastrointestinal: denies: abdominal pain - Medication Medications: Active Medications Generic Name Dose Route Start Last Admin Trade Name Freq PRN Reason Stop Dose Admin Calcium Carbonate 1,000 mg 08/20/19 15:00 08/21/19 20:39 Tums PO 1,000 mg TID ANDREA Administration Clonidine 0.1 mg 08/20/19 16:26 08/21/19 11:06 Catapres PO 0.1 mg Q4H PRN Administration Blood Pressure Heparin Sodium (Porcine) 5,000 units 08/19/19 21:00 08/21/19 20:39 Heparin SC 5,000 units TID ANDREA Administration Hydralazine HCl 10 mg 08/19/19 17:38 08/20/19 11:58 Apresoline SLOW IVP 10 mg Q4H PRN Administration Blood Pressure Insulin Human Regular 0 units 08/19/19 17:38 08/21/19 17:10 Humulin R SC 2 unit .MODERATE SLIDING SC PRN Administration Moderate Correctional Scale Neomycin/Polymyxin/Bacitracin 1 gm 08/21/19 16:00 08/21/19 16:56 Triple Antibiotic TOP 1 gm Q24HR ANDREA Administration Ondansetron HCl 4 mg 08/19/19 17:38 08/20/19 07:31 Zofran IVP 4 mg Q6H PRN Administration Nausea/Vomiting Tramadol HCl 50 mg 08/19/19 20:15 08/19/19 21:34 Ultram PO 50 mg Q12H PRN Administration Moderate Pain (4-6) Zolpidem Tartrate 5 mg 08/19/19 17:38 08/21/19 20:39 Ambien PO 5 mg HSPRN PRN Administration Insomnia - Exam General Appearance: NAD, awake alert Eye: PERRL, anicteric sclera ENT: normocephalic atraumatic, no oropharyngeal lesions, moist mucosa Neck: supple, symmetric, no JVD, no thyromegaly, no lymphadenopathy, no carotid bruit Heart: RRR, no murmur, no gallops, no rubs, normal peripheral pulses Respiratory: CTAB, no wheezes, no rales, no ronchi, normal chest expansion, no tachypnea, normal percussion Gastrointestinal: soft, non-tender, non-distended, normal bowel sounds, no palpable masses, no hepatomegaly, no splenomegaly, no bruit Extremities: no cyanosis, no clubbing, no edema Skin: normal turgor, no lesions, no rashes Neurological: cranial nerve grossly intact, normal sensation to touch, no weakness, no focal deficits, no new deficit Musculoskeletal: normal tone, normal strength, no muscle wasting Psychiatric: normal affect, normal behavior, A&O x 3 Hosp A/P (1) Uremia, acute Code(s): N19 - UNSPECIFIED KIDNEY FAILURE Status: Acute Plan: 1. ESRD on HD, will have venous mapping tomorrow; continue hemodialysis per nephrology; closely monitor electrolytes 2. Anemia of chronic renal disease, no indication for blood transfusion at this time (2) DM2 (diabetes mellitus, type 2) Status: Acute Qualifiers: Diabetes mellitus skilled nursing insulin use: with adjunct faculty for medical terminology use Diabetes mellitus complication status: with kidney complications Diabetes mellitus complication detail: with chronic kidney disease Chronic kidney disease stage : on chronic dialysis Qualified Code(s): E11.22 - Type 2 diabetes mellitus with diabetic chronic kidney disease; N18.6 - End stage renal disease; Z79.4 - terminal worker (current) use of insulin; Z99.2 - Dependence on renal dialysis (3) ESRD (end stage renal disease) on dialysis Code(s): N18.6 - END STAGE RENAL DISEASE; Z99.2 - DEPENDENCE ON RENAL DIALYSIS Status: Acute Plan: venous mapping tomorrow (4) Hyperkalemia Code(s): E87.5 - HYPERKALEMIA Status: Acute (5) Metabolic acidosis Code(s): E87.2 - ACIDOSIS Status: Acute (6) Urinary retention Code(s): R33.9 - RETENTION OF URINE, UNSPECIFIED Status: Chronic
[2019-08-22] MEDS: hydrALAZINE 20 MG/ML VIAL SLOW IVP PRN ×2 (04:21→18:24)
--- NOTE | 2019-08-22 10:19 | PRG ---
DATE OF SERVICE: 08/22/2019 SUBJECTIVE: Patient was seen and examined at bedside and overnight events noted. Patient denies any shortness of breath or chest pain or palpitation. No history of nausea or vomiting or diarrhea or fever or chills or cramps. OBJECTIVE: GENERAL: This is a well-built male, in no apparent distress. VITAL SIGNS: Temperature 98.1. Heart rate 81. Respiratory rate 18. Blood pressure 174/84. HEENT: Atraumatic, normocephalic. Oral mucosa is moist NECK: Supple. CARDIOVASCULAR: S1, S2 heard. Rate and rhythm regular. RESPIRATORY: Clear to auscultation. GASTROINTESTINAL: Abdomen is soft. MUSCULOSKELETAL: No tenderness. No edema. DERMATOLOGIC: No skin rash. NEUROLOGIC: Alert and awake and oriented X3. No focal neurologic deficits. Moving all the extremities. PSYCHIATRIC: Mood and affect normal. LABORATORY DATA: Not done today. ASSESSMENT AND PLAN: 1. End-stage renal disease. Continue dialysis. 2. Hypertension. 3. Anemia. Monitor hemoglobin. 4. Edema, controlled. PLAN: Plan is to continue on dialysis with ultrafiltration as tolerated. Job ID: [id number]
[2019-08-22] MEDS ORDERED: CEFAZOLIN 2 GM in Premix Bag 1 BAG IVPB SCH (11:45)
--- NOTE | 2019-08-22 12:06 | SPC ---
EXAM: [facility] [place]/AV S PROVIDED CLINICAL HISTORY: End-stage renal disease. Non maturing left upper extremity arteriovenous dialysis fistula. COMPARISON: None TECHNIQUE: After informed consent was obtained, the patient was placed on the angiography table in the supine po sition. Limited sonographic evaluation of the left upper extremity arteriovenous dialysis fistula was performed. The left upper extremity was meticulously prepped and draped in usual sterile fashion. Skin and subcutaneous tissues at the intended puncture site were infiltrated with buffered 1% lidocaine for local anesthesia. Utilizing concurrent real time ultrasound guidance, the left antecubi tiana vein was accessed directed in the venous direction. A 4 [place] introducer sheath was placed. A fistulogram and venogram to the SVC were performed. Manual compression was applied to the cephalic ve in outflow with subsequent opacification of the basilic vein. A blood pressure cuff was then applied to the left arm and insufflated above systolic pressure, and contrast was injected to evaluat e the arteriovenous anastomosis. Introducer sheath was removed, and hemostasis was achieved with direct pressure. The patient tolerate d the procedure well and without immediate complication. Dry sterile dressings was placed at puncture site. Fluoroscopy: Total fluoroscopy time-0.8 minutes Total dose-14,871 mGy centimeter squared IMPRESSION: 1. Patent left upper extremity arteriovenous dialysis fistula with patent venous outflow to the level of the SVC. The cephalic vein outflow is very small in caliber and appears to terminate in small collateral vessels and does not follow normal expected course of the cephalic vein. The basilic vein outflow is widely patent. 2. Patent arteriovenous anastomosis. 3. Above findings were reviewed with Dr. Meier.
[2019-08-22] MEDS ORDERED: Midazolam HCl 2 mg/2 ml Vial ONE (12:26)
[2019-08-22] MEDS ORDERED: Fentanyl 100 MCG/2 ML VIAL ONE (12:27)
[2019-08-22] MEDS: Heparin 5,000 UNITS/ML VIAL SC SCH ×3 (12:56→21:15)
[2019-08-22] MEDS: Calcium Carbonate 500 MG ChewTAB PO SCH ×3 (12:56→21:14)
[2019-08-22] MEDS ORDERED: Bupivacaine HCl 0.5%/Epinephrine 1:200,000/PF 30 ml Vial ONE ×2 (13:41→14:09)
[2019-08-22] MEDS ORDERED: Protamine Sulfate 50 MG/5 ML VIAL ONE (14:09)
[2019-08-22] MEDS ORDERED: Lidocaine 2% PF 5 ML VIAL ONE (14:09)
[2019-08-22] MEDS ORDERED: Ioversol 68 % 50 ML VIAL ONE (14:09)
[2019-08-22] MEDS ORDERED: Heparin 5,000 UNITS/ML VIAL ONE (14:09)
[2019-08-22] MEDS ORDERED: Propofol 1,000 MG/100 ML VIAL IV ONE (14:15)
--- NOTE | 2019-08-22 14:28 | PRG ---
DATE OF SERVICE: 08/22/2019 SUBJECTIVE: Wilson Noyola had a fistulogram today, reveals that his cephalic vein outflow is not patent, but runoff is through the basilic vein. I have discussed with the patient and the plan is for a basilic vein transposition fistula. This could be done as an outpatient or he can dialyze afterward to tonight or tomorrow and be discharged later tonight or tomorrow pending medical indications. I will need to see him back in my office in about 2 to 3 weeks postoperatively. He will leave Lyndon wrap over his left arm for 2 to 3 days, remove it after 2 to 3 days, remove the plastic dressing, OpSite, Xeroform gauze and begin washing the staple line with soap and water in the bath or shower, pat it dry. He leave it open, rewrap it for his comfort. He will wash it daily with soap and water. I will need to see him in my office in 2 to 3 weeks. Job ID: [id number]
[2019-08-22] MEDS ORDERED: PROPOFOL 200 MG/20 ML VIAL ONE (14:33)
[2019-08-22] MEDS ORDERED: traMADol HCl 50 MG TAB PO PRN (16:37)
[2019-08-22] MEDS: Triple Antibiotic Oint 1 GM Packet TOP SCH (17:00)
--- NOTE | 2019-08-22 17:23 | PDOC.HOSPP ---
- Subjective Encounter Date: 08/22/19 Subjective: planned venous mapping today with dialysis to follow, otherwise patient has no complaints; wants to go home - Objective Vital Signs & Weight: Vital Signs (12 hours) Temp Pulse Resp BP Pulse Ox 08/22/19 07:09 98.1 F 81 15 174/84 H 97 Weight Admit Weight 191 lb Weight 188 lb 11.451 oz I&O: 08/21/19 08/22/19 08/23/19 06:59 06:59 06:59 Intake Total 350 Balance 350 Result Diagrams: 08/21/19 05:26 08/21/19 05:26 Additional Labs: Accuchecks 08/22/19 08/22/19 08/21/19 11:11 05:44 20:46 POC Glucose 128 H 126 H 166 H 08/21/19 17:12 POC Glucose 173 H Hospitalist ROS - Review of Systems Respiratory: denies: shortness of breath Cardiovascular: denies: chest pain Gastrointestinal: denies: abdominal pain Genitourinary: denies: incontinence - Medication Medications: Active Medications Generic Name Dose Route Start Last Admin Trade Name Freq PRN Reason Stop Dose Admin Calcium Carbonate 1,000 mg 08/20/19 15:00 08/22/19 15:17 Tums PO Not Given TID [facility] Clonidine 0.1 mg 08/20/19 16:26 08/21/19 23:45 Catapres PO 0.1 mg Q4H PRN Administration Blood Pressure Heparin Sodium (Porcine) 5,000 units 08/19/19 21:00 08/22/19 15:18 Heparin SC Not Given TID [facility] Hydralazine HCl 10 mg 08/19/19 17:38 08/22/19 04:21 Apresoline SLOW IVP 10 mg Q4H PRN Administration Blood Pressure Insulin Human Regular 0 units 08/19/19 17:38 08/21/19 17:10 Humulin R SC 2 unit .MODERATE SLIDING SC PRN Administration Moderate Correctional Scale Neomycin/Polymyxin/Bacitracin 1 gm 08/21/19 16:00 08/22/19 17:00 Triple Antibiotic TOP Not Given Q24HR [facility] Ondansetron HCl 4 mg 08/19/19 17:38 08/20/19 07:31 Zofran IVP 4 mg Q6H PRN Administration Nausea/Vomiting Tramadol HCl 50 mg 08/19/19 20:15 08/19/19 21:34 Ultram PO 50 mg Q12H PRN Administration Moderate Pain (4-6) Zolpidem Tartrate 5 mg 08/19/19 17:38 08/21/19 20:39 Ambien PO 5 mg HSPRN PRN Administration Insomnia - Exam General Appearance: NAD, awake alert Eye: PERRL, anicteric sclera ENT: normocephalic atraumatic, no oropharyngeal lesions, moist mucosa Neck: supple, symmetric, no JVD, no thyromegaly, no lymphadenopathy, no carotid bruit Heart: RRR, no murmur, no gallops, no rubs, normal peripheral pulses Respiratory: CTAB, no wheezes, no rales, no ronchi, normal chest expansion, no tachypnea, normal percussion Gastrointestinal: soft, non-tender, non-distended, normal bowel sounds, no palpable masses, no hepatomegaly, no splenomegaly, no bruit Extremities: no cyanosis, no clubbing, no edema Skin: normal turgor, no lesions, no rashes Neurological: cranial nerve grossly intact, normal sensation to touch, no weakness, no focal deficits, no new deficit Musculoskeletal: normal tone, normal strength, no muscle wasting Psychiatric: normal affect, normal behavior, A&O x 3 Hosp A/P (1) Uremia, acute Code(s): N19 - UNSPECIFIED KIDNEY FAILURE Status: Acute Plan: now resolved; continue hemodialysis today; discharge home after surgery and dialysis (2) DM2 (diabetes mellitus, type 2) Status: Acute Qualifiers: Diabetes mellitus retirement insulin use: with exterminator helper termite use Diabetes mellitus complication status: with kidney complications Diabetes mellitus complication detail: with chronic kidney disease Chronic kidney disease stage : on chronic dialysis Qualified Code(s): E11.22 - Type 2 diabetes mellitus with diabetic chronic kidney disease; N18.6 - End stage renal disease; Z79.4 - assistant terminal manager (current) use of insulin; Z99.2 - Dependence on renal dialysis Plan: continue with bedside glucose monitoring (3) ESRD (end stage renal disease) on dialysis Code(s): N18.6 - END STAGE RENAL DISEASE; Z99.2 - DEPENDENCE ON RENAL DIALYSIS Status: Acute (4) Hyperkalemia Code(s): E87.5 - HYPERKALEMIA Status: Acute Plan: resolved (5) Metabolic acidosis Code(s): E87.2 - ACIDOSIS Status: Acute (6) Urinary retention Code(s): R33.9 - RETENTION OF URINE, UNSPECIFIED Status: Chronic
--- NOTE | 2019-08-22 23:14 | OP ---
DATE OF PROCEDURE: 08/22/2019 PREOPERATIVE DIAGNOSES: End-stage renal disease and left arm dialysis fistula malfunction. POSTOPERATIVE DIAGNOSES: End-stage renal disease and left arm dialysis fistula malfunction. PROCEDURE PERFORMED: Left arm basilic vein transposition fistula. ANESTHESIA: Regional, TIVA. Note, prior to this operation, patient had a fistulogram noting outflow through collaterals off the cephalic vein connecting to the basilic vein. DESCRIPTION OF PROCEDURE: The patient was taken to the operating room where under regional anesthesia and intravenous sedation, left upper extremity was prepared with ChloraPrep and draped in routine fashion. Local anesthetic was infiltrated in the skin and subcutaneous tissue in the apex of the axilla. Incision was made from the left axilla to the proximal forearm through the old incision, carried down through skin and subcutaneous tissue, identifying the basilic vein, dissected it free, dividing branch between 4-0 silk ties and clips. Once it was mobilized, Michelle-Tavon tunneler was used to create a tunnel using a 12 mm tunneler from the forearm to the axilla. The patient was given 6000 units of heparin intravenously. After adequate circulation time, the retrograde antecubital vein was dissected free distally, doubly clipped with large clips, divided, dilated with heparinized saline solution. Valvuloplasty performed to release it to promote flow. A clamp placed across the basilic vein origin. The basilic vein divided, flushed with heparinized saline solution, dilated, and connected to the tunneler with 3-0 Monocryl, brought through the tunnel, disconnecting the tunneler and flushing with heparinized saline solution. Noted good flow. End basilic vein to end retrograde antecubital vein anastomosis created by spatulating both ends and continuous suture of 6-0 Prolene used for anastomosis, releasing the arterial inflow noting excellent flow. The division point of the basilic vein ligated with to and fro suture of 6-0 Prolene. The patient was given 50 mg of protamine by Anesthesia. Good flow noted in the basilic vein with good flow and outflow in the axilla. Hemostatic agent placed in the vein harvest bed. Good hemostasis noted and obtained with cautery clips and ties. Subcutaneous tissue was approximated with 3-0 Monocryl, skin with gideon. Sterile dressing applied. Job ID: [id number]
[2019-08-23] MEDS: traMADol HCl 50 MG TAB PO PRN (03:09)
[2019-08-23] MEDS: Acetaminophen 500 MG TAB PO PRN ×3 (03:56→21:19)
[2019-08-23] MEDS: Calcium Carbonate 500 MG ChewTAB PO SCH ×3 (08:27→21:19)
[2019-08-23] MEDS: Heparin 5,000 UNITS/ML VIAL SC SCH ×3 (08:27→21:19)
[2019-08-23] MEDS: Triple Antibiotic Oint 1 GM Packet TOP SCH (10:38)
[2019-08-23] MEDS: Insulin Regular 300 UNITS/3 ML VIAL SC PRN ×2 (12:41→17:49)
--- NOTE | 2019-08-23 16:54 | PDOC.HOSPP ---
- Subjective Encounter Date: 08/23/19 Encounter Time: 14:00 Subjective: Patient seen and examined for ALIZE. Tolerating dialysis. No CP. No new complaints. No overnight events - Objective Vital Signs & Weight: Vital Signs (12 hours) Temp Pulse Resp BP BP Pulse Ox 08/23/19 15:23 97.9 F 84 15 176/82 H 98 08/23/19 11:46 98.0 F 78 16 145/89 H 100 08/23/19 07:52 99.1 F 83 15 156/86 H 100 Weight Admit Weight 191 lb Weight 186 lb 4.65 oz I&O: 08/22/19 08/23/19 08/24/19 06:59 06:59 06:59 Intake Total 350 Balance 350 Result Diagrams: 08/21/19 05:26 08/21/19 05:26 Additional Labs: Accuchecks 08/23/19 08/23/19 08/22/19 10:49 05:47 21:01 POC Glucose 216 H 136 H 108 EKG Reviewed by me: Yes (Tele SR) Hospitalist ROS - Review of Systems Respiratory: denies: cough, dry, shortness of breath, hemoptysis, SOB with excertion, pleuritic pain, sputum, wheezing, other Cardiovascular: denies: chest pain, palpitations, orthopnea, paroxysmal noc. dyspnea, edema, light headedness, other - Medication Medications: Active Medications Generic Name Dose Route Start Last Admin Trade Name Freq PRN Reason Stop Dose Admin Acetaminophen 1,000 mg 08/19/19 20:15 08/23/19 13:56 Tylenol PO 1,000 mg Q6H PRN Administration Moderate to Severe Pain (6-10) Calcium Carbonate 1,000 mg 08/20/19 15:00 08/23/19 13:57 Tums PO Not Given TID ANDREA Clonidine 0.1 mg 08/20/19 16:26 08/21/19 23:45 Catapres PO 0.1 mg Q4H PRN Administration Blood Pressure Heparin Sodium (Porcine) 5,000 units 08/19/19 21:00 08/23/19 13:57 Heparin SC 5,000 units TID ANDREA Administration Hydralazine HCl 10 mg 08/19/19 17:38 08/22/19 18:24 Apresoline SLOW IVP 10 mg Q4H PRN Administration Blood Pressure Insulin Human Regular 0 units 08/19/19 17:38 08/23/19 12:41 Humulin R SC 4 unit .MODERATE SLIDING SC PRN Administration Moderate Correctional Scale Neomycin/Polymyxin/Bacitracin 1 gm 08/21/19 16:00 08/23/19 10:38 Triple Antibiotic TOP 1 gm Q24HR ANDREA Administration Ondansetron HCl 4 mg 08/19/19 17:38 08/20/19 07:31 Zofran IVP 4 mg Q6H PRN Administration Nausea/Vomiting Tramadol HCl 50 mg 08/19/19 20:15 08/23/19 03:09 Ultram PO 50 mg Q12H PRN Administration Moderate Pain (4-6) Zolpidem Tartrate 5 mg 08/19/19 17:38 08/21/19 20:39 Ambien PO 5 mg HSPRN PRN Administration Insomnia - Exam General Appearance: NAD Heart: RRR, no gallops Respiratory: CTAB, no rales Gastrointestinal: soft, non-tender, normal bowel sounds Extremities: no edema Hosp A/P (1) ALIZE (acute kidney injury) Code(s): N17.9 - ACUTE KIDNEY FAILURE, UNSPECIFIED Status: Acute (2) Uremia, acute Code(s): N19 - UNSPECIFIED KIDNEY FAILURE Status: Acute (3) DM2 (diabetes mellitus, type 2) Status: Acute Qualifiers: Diabetes mellitus terminal operations supervisor insulin use: with fci use Diabetes mellitus complication status: with kidney complications Diabetes mellitus complication detail: with chronic kidney disease Chronic kidney disease stage : on chronic dialysis Qualified Code(s): E11.22 - Type 2 diabetes mellitus with diabetic chronic kidney disease; N18.6 - End stage renal disease; Z79.4 - half-way (current) use of insulin; Z99.2 - Dependence on renal dialysis (4) ESRD (end stage renal disease) on dialysis Code(s): N18.6 - END STAGE RENAL DISEASE; Z99.2 - DEPENDENCE ON RENAL DIALYSIS Status: Acute (5) Essential hypertension Code(s): I10 - ESSENTIAL (PRIMARY) HYPERTENSION Status: Acute (6) Hyperkalemia Code(s): E87.5 - HYPERKALEMIA Status: Acute (7) Metabolic acidosis Code(s): E87.2 - ACIDOSIS Status: Acute (8) Anemia of renal disease Code(s): N18.9 - CHRONIC KIDNEY DISEASE, UNSPECIFIED; D63.1 - ANEMIA IN CHRONIC KIDNEY DISEASE Status: Chronic - Plan Cont Sliding scale/Lantus Add low dose Coreg DC after outpt dialysis setup
--- NOTE | 2019-08-23 17:23 | PRG ---
DATE OF SERVICE: 08/23/2019 SUBJECTIVE: Wilson Noyola is doing well today. He has a good thrill and bruit in the left arm fistula. His hand function is normal. I have told him he can remove his dressings Thursday or from the left arm and begin washing with soap and water daily. He can leave the wound open or wrap it. 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 He should follow up in my office in 2 weeks for staple removal. At this point, I will see him as needed. Call if necessary. Job ID: [id number]
--- NOTE | 2019-08-23 17:29 | PRG ---
DATE OF SERVICE: 08/23/2019 SUBJECTIVE: Patient was seen and examined at bedside and overnight events noted. Patient denies any shortness of breath or chest pain or palpitation. No history of nausea or vomiting or diarrhea or fever or chills or cramps. OBJECTIVE: GENERAL: This is a well-built male, in no apparent distress. VITAL SIGNS: Temperature 97. Heart rate 84. Respiratory rate 18. Blood pressure 176/82. HEENT: Atraumatic, normocephalic. Oral mucosa is moist NECK: Supple. CARDIOVASCULAR: S1, S2 heard. Rate and rhythm regular. RESPIRATORY: Clear to auscultation. GASTROINTESTINAL: Abdomen is soft. MUSCULOSKELETAL: No tenderness. No edema. DERMATOLOGIC: No skin rash. NEUROLOGIC: Alert and awake and oriented X3. No focal neurologic deficits. Moving all the extremities. PSYCHIATRIC: Mood and affect normal. LABORATORY DATA: Not done today. ASSESSMENT AND PLAN: 1. End-stage renal disease, continue dialysis as tolerated. 2. Hypertension. 3. Anemia. 4. Edema, controlled. PLAN: Continue dialysis as tolerated. Job ID: [id number]
[2019-08-23] MEDS: Carvedilol 3.125 MG TAB PO SCH (17:43)
[2019-08-23] MEDS: Zolpidem Tartrate 5 MG TAB PO PRN (21:19)
[2019-08-24] MEDS: Acetaminophen 500 MG TAB PO PRN (04:40)
[2019-08-24 05:05] LABS: Hemoglobin 7.2 g/dL (14.0-18.0); Platelet Count 270 thou/uL (130-400)
[2019-08-24 05:23] LABS: Anion Gap 15 mmol/L (10-20); BUN (Urea Nitrogen) 46 mg/dL (8.9-20.6); Calc. Creatinine Clearance 16 mL/min (70-130); Carbon Dioxide 24 mmol/L (22-29); Chloride 100 mmol/L (98-107); Estimated GFR-MDRD 8; Glucose 115 mg/dL (70-105); Sodium 134 mmol/L (136-145)
[2019-08-24] MEDS: Heparin 5,000 UNITS/ML VIAL SC SCH ×2 (08:00→15:57)
[2019-08-24] MEDS: Calcium Carbonate 500 MG ChewTAB PO SCH ×2 (08:00→15:57)
[2019-08-24] MEDS: cloNIDine 0.1 MG TAB PO PRN (08:16)
[2019-08-24] MEDS: Carvedilol 3.125 MG TAB PO SCH ×2 (08:17→16:49)
--- NOTE | 2019-08-24 11:32 | PRG ---
DATE OF SERVICE: 08/24/2019 SUBJECTIVE: Patient was seen and examined at bedside and overnight events noted. Patient denies any shortness of breath or chest pain or palpitation. No history of nausea or vomiting or diarrhea or fever or chills or cramps. OBJECTIVE: GENERAL: This is a well-build male, in no acute distress. VITAL SIGNS: Temperature 98.6. Heart rate 79. Respiratory rate 18. Blood pressure 195/96. HEENT: Atraumatic, normocephalic. Oral mucosa is moist NECK: Supple. CARDIOVASCULAR: S1, S2 heard. Rate and rhythm regular. RESPIRATORY: Clear to auscultation. GASTROINTESTINAL: Abdomen is soft. MUSCULOSKELETAL: No tenderness. No edema. DERMATOLOGIC: No skin rash. NEUROLOGIC: Alert and awake and oriented X3. No focal neurologic deficits. Moving all the extremities. PSYCHIATRIC: Mood and affect normal. LABORATORY DATA: Potassium 5.0, BUN is 46, and creatinine is 7.9. ASSESSMENT AND PLAN: 1. End-stage renal disease. Continue dialysis. The patient is seen during dialysis, tolerating well. Case Management working on getting his outpatient dialysis . 2. Hypertension. 3. Anemia. 4. Edema, controlled. Continue dialysis as tolerated. Follow with Surgery for access management. Job ID: [id number]
[2019-08-24 11:47] LABS: HBSAg Index 0.14 S/CO (0-0.99); Hep B Core Total Ab Non-Reactive (NonReactive); Hep B Core Total Index 0.05 S/CO (0-0.79); Hep B Surf AB Non-Reactive (NonReactive); Hep B Surf Ag Non-Reactive S/CO (NonReactive); Hep C IgG Ab Non-Reactive (NonReactive); Hep C Index 0.07 S/CO (0-0.79)
[2019-08-24 12:28] VITALS: TEMP 98.4
[2019-08-24] MEDS ORDERED: Diabetic Tussin 200 MG/10 ML UDCUP PO PRN (16:21)
--- NOTE | 2019-08-24 16:37 | PRG ---
DATE OF SERVICE: 08/24/2019 He is doing well today. Left arm dressing has been changed. He has good thrill and bruit. The patient will be discharged anytime from a surgical standpoint. I will see him in office in 2 weeks, at which time, I will need to remove his gideon. Job ID: [id number]
[2019-08-24] MEDS: Triple Antibiotic Oint 1 GM Packet TOP SCH (16:49)
[2019-08-24] MEDS: Insulin Regular 300 UNITS/3 ML VIAL SC PRN (17:14)
[2019-08-24 17:39] VITALS: BP 142/71
--- NOTE | 2019-08-25 12:16 | DIS ---
DATE OF ADMISSION: 08/19/2019 DATE OF DISCHARGE: 08/24/2019 DISCHARGE DISPOSITION: Home. FOLLOWUP: 1. Follow up with primary care physician, Dr. Arrington in 1 week. 2. Follow up with Dr. Amezquita as scheduled. 3. Follow up with General Surgery, Dr. Meier. DISCHARGE MEDICATIONS: Same as admission medication. BRIEF HOSPITAL COURSE: The patient is a 44-year-old male with end-stage renal disease, on intermittent hemodialysis due to insurance reason, presented to the emergency room on August 19, 2019 with generalized weakness and not feeling well. His workup was consistent with uremia, volume overload as well as hyperkalemia. His potassium on admission was 5.4 with bicarbonate of 16, BUN 98, and creatinine 11.68. He underwent hemodialysis per Nephrology. On August 19, 2019, the patient underwent removal of the peritoneal dialysis catheter. On August 22, 2019, the patient underwent left arm basilic vein transposition fistula. Temporary hemodialysis has been arranged by the hospital. He has been cleared by consultants for discharge. FINAL DIAGNOSES: 1. Acute kidney injury with significant uremia, metabolic acidosis and hyperkalemia. 2. Diabetes mellitus, type 2. 3. Hypertension. 4. End-stage renal disease, on hemodialysis. 5. Anemia secondary to renal disease. 6. Secondary hyperparathyroidism. Plan of care was discussed with the patient in detail. He stated understanding. Job ID: [id number]
--- NOTE | 2019-08-25 20:23 | PQF ---
S[employer] Courtroom Reporter Crystal Reports Winform Viewer MARIETTA SONI MALIK MD [id number] CLINICAL DOCUMENTATION CLARIFICATION FORM: POST DISCHARGE Addendum to original discharge summary date: ____ Late entry note date: __ DATE: 08/25/19 ATTN: Nancy Morales Please exercise your independent, professional judgment in responding to the clarification form. Clinical indicators are provided on the bottom of this form for your review Can you please clarify the reason for admission being treated for this patient? Please check appropriate box(s): [ x ] Hyperkalemia [ ] Left arm dialysis malfunction [ ] Other diagnosis please specify [ ] Unable to determine In addition, please specify: Present on Admission (POA): [ x ] Yes [ ] No [ ] Unable to determine For continuity of documentation, please document condition throughout progress notes and discharge summary. Thank You. CLINICAL INDICATORS - SIGNS / SYMPTOMS / LABS H and P 08/19 pg.1- referred to the hospitalist for admission due to uremia with hyperkalemia and hemodialysis Consult Dr. Meier 08/19 pg.1- I saw him on July 26 2019, and he had placement of left arm fistula, hemodialysis catheter PN 08/19 Dr. Meier pg.1- He presents now in need for dialysis with lethargy and hyperkalemia Op report 08/22 Dr. Meier pg.1- End stage renal disease and left arm dialysis fistula malfunction DS pg1- His work up consistent with uremia, volume overload as well as hyperkalemia RISK FACTORS Hypertension- Consult Dr. Antonio 08/19 pg.2 Anemia- Consult Dr. Antonio 08/19 pg.2 Diabetes mellitus-Consult Dr. Meier 08/19 pg.2 Non compliance- PN 08/19 Dr. Meier pg.1 ESRD on hemodialysis- DS pg.1 TREATMENTS: Left arm basilic vein transposition fistula- Op reprot08/22 Dr. Meier pg.1 Hemodialysis Renal Consult- Dr. Antonio 08/19 AV Shunt Angiogram- 08/22 Dr. Sanchez (This form is maintained as a part of the permanent medical record) 2014 [employer]. All Rights Reserved Matthew [email or web address] [not provided] MTDD
== END 2019-08-24 18:29 | disposition home or self-care (01) | DRG 987 ==
LOC: ERS 11:09 → 2NO 15:02
PROVIDERS: ADMIT Internal Medicine; ATTEND Internal Medicine
PROC: 05WY07Z Revision of Autologous Tissue Substitute in Upper Vein, Open Approach (ICD-10-PCS; principal; 2019-08-22)
PROC: 0WPGX3Z Removal of Infusion Device from Peritoneal Cavity, External Approach (ICD-10-PCS; 2019-08-22)
PROC: 02HV33Z Insertion of Infusion Device into Superior Vena Cava, Percutaneous Approach (ICD-10-PCS; 2019-08-22)
PROC: B518ZZA Fluoroscopy of Superior Vena Cava, Guidance (ICD-10-PCS; 2019-08-22)
PROC: 5A1D70Z Performance of Urinary Filtration, Intermittent, Less than 6 Hours Per Day (ICD-10-PCS; 2019-08-22)
PROC: B51NYZZ Fluoroscopy of Left Upper Extremity Veins using Other Contrast (ICD-10-PCS; 2019-08-22)
DX: I12.0 Hypertensive chronic kidney disease with stage 5 chronic kidney disease or end stage renal disease (principal); N18.6 End stage renal disease; T82.41XA Breakdown (mechanical) of vascular dialysis catheter, initial encounter; N17.9 Acute kidney failure, unspecified; E87.2 Acidosis; N25.81 Secondary hyperparathyroidism of renal origin; E87.5 Hyperkalemia; E78.5 Hyperlipidemia, unspecified; E11.22 Type 2 diabetes mellitus with diabetic chronic kidney disease; R33.9 Retention of urine, unspecified; E83.39 Other disorders of phosphorus metabolism; D63.1 Anemia in chronic kidney disease; Z79.4 Long term (current) use of insulin; Z79.899 Other long term (current) drug therapy; Z99.2 Dependence on renal dialysis
CPT/HCPCS: 36415; 36416; 36901; 71045; 80048; 80053; 83735; 84100; 85014; 85018; 85025; 85049; 86704; 86706; 86803; 86850; 86900; 86901; 87340; 93005; J0360; J0670; J0690; J1644; J1815; J2001; J2250; J2310; J2405; J2704; J2720; J3010; Q9967

== ENCOUNTER 2019-09-06 12:50 | Emergency (ER) | payer MEDICAID, SELFPAY ==
[~2019-09-06 12:50] MED LIST changes: -Heparin 1,000 UNITS/ML VIAL ONE; +Heparin 10,000 UNITS/ 10 ML VIAL ONE; -PROPOFOL 200 MG/20 ML VIAL ONE; -Succinylcholine Chloride 20 MG/ML 10 ml SYRINGE FS ONE
[2019-09-06 14:38] LABS: #Basophils 0.1 thou/uL (0.0-0.2); #Eosinphils 0.2 thou/uL (0.0-0.7); #Lymphocytes 1.5 thou/uL (1.20-3.40); #Monocytes 0.6 thou/uL (0.11-0.59); #Neutrophils 4.2 thou/uL (1.40-6.50); %Basophils 0.8 % (0.0-1.0); %Eosinophils 3.6 % (0.0-10.0); %Lymphocytes 22.9 % (21.0-51.0); %Neutrophils 63.7 % (42.0-75.0); Hemoglobin 6.8 g/dL (14.0-18.0); Mean Corpuscular HGB CONC 33.8 g/dL (32.0-36.0); Mean Corpuscular Volume 91.8 fL (78.0-98.0); Mean Platelet Volume 6.5 fL (7.4-10.4); Platelet Count 319 thou/uL (130-400); RBC Distribution Width 12.9 % (11.5-14.5); Red Blood Cell (RBC) Count 2.19 mill/uL (4.70-6.10); White Blood Cell (WBC) Count 6.7 thou/uL (4.8-10.8)
[2019-09-06 15:00] LABS: ALT (SGPT) Less than 7 U/L (8-55); AST (SGOT) 11 U/L (5-34); Albumin 3.4 g/dL (3.5-5.0); Alkaline Phosphatase 122 U/L (40-110); Anion Gap 16 mmol/L (10-20); BUN (Urea Nitrogen) 54 mg/dL (8.9-20.6); Bilirubin, Total 0.3 mg/dL (0.2-1.2); Calc. Creatinine Clearance 0 mL/min (70-130); Calcium 6.9 mg/dL (7.8-10.44); Carbon Dioxide 29 mmol/L (22-29); Chloride 98 mmol/L (98-107); Estimated GFR-MDRD 9; Globulin 2.7 g/dL (2.4-3.5); Glucose 139 mg/dL (70-105); Protein, Total 6.1 g/dL (6.0-8.3); Sodium 139 mmol/L (136-145)
== END 2019-09-06 19:50 | disposition home or self-care (01) ==
LOC: ERS 12:50
DX: D63.1 Anemia in chronic kidney disease (principal); I12.0 Hypertensive chronic kidney disease with stage 5 chronic kidney disease or end stage renal disease; E11.22 Type 2 diabetes mellitus with diabetic chronic kidney disease; N18.6 End stage renal disease; Z99.2 Dependence on renal dialysis; Z79.899 Other long term (current) drug therapy; Z79.4 Long term (current) use of insulin
CPT/HCPCS: 36415; 36430; 80053; 85025; 86850; 86900; 86901; 90935; 99284; G0257; J1644; P9016

== ENCOUNTER 2020-04-26 16:43 | Inpatient (IN) | payer BC, OTHER ==
[2020-04-26 17:08] LABS: #Basophils 0.1 thou/uL (0.0-0.2); #Eosinphils 0.1 thou/uL (0.0-0.7); #Lymphocytes 1.1 thou/uL (1.20-3.40); #Monocytes 0.6 thou/uL (0.11-0.59); #Neutrophils 3.3 thou/uL (1.40-6.50); %Basophils 1.7 % (0.0-1.0); %Eosinophils 1.8 % (0.0-10.0); %Lymphocytes 20.8 % (21.0-51.0); %Monocytes 11.4 % (0.0-10.0); %Neutrophils 64.3 % (42.0-75.0); Hemoglobin 12.1 g/dL (14.0-18.0); Mean Corpuscular HGB CONC 32.8 g/dL (32.0-36.0); Mean Corpuscular Hemoglobin 30.3 pg (27.0-31.0); Mean Corpuscular Volume 92.5 fL (78.0-98.0); Mean Platelet Volume 7.5 fL (7.4-10.4); Platelet Count 279 thou/uL (130-400); RBC Distribution Width 14.5 % (11.5-14.5); White Blood Cell (WBC) Count 5.1 thou/uL (4.8-10.8)
[2020-04-26 17:13] LABS: INR-International Normal Ratio 1.2; PTT 30.8 sec (22.9-36.1)
[2020-04-26 17:22] LABS: ALT (SGPT) 12 U/L (8-55); AST (SGOT) 14 U/L (5-34); Albumin 4.2 g/dL (3.5-5.0); Alkaline Phosphatase 103 U/L (40-110); Anion Gap 15 mmol/L (10-20); BUN (Urea Nitrogen) 23 mg/dL (8.9-20.6); Bilirubin, Total 0.5 mg/dL (0.2-1.2); CK (CPK) 190 U/L (30-200); Calc. Creatinine Clearance 0 mL/min (70-130); Calcium 8.9 mg/dL (7.8-10.44); Carbon Dioxide 32 mmol/L (22-29); Chloride 97 mmol/L (98-107); Estimated GFR-MDRD 11; Globulin 3.3 g/dL (2.4-3.5); Glucose 308 mg/dL (70-105); Potassium 4.5 mmol/L (3.5-5.1); Protein, Total 7.5 g/dL (6.0-8.3); Sodium 139 mmol/L (136-145)
--- NOTE | 2020-04-26 18:07 | RAD ---
CHEST ONE VIEW: 04/26/20 HISTORY: Chest pain. COMPARISON: Radiograph prior day. FINDINGS: Lungs are clear. No pneumothorax or effusion. Cardiac silhouette and mediastinal contours are within normal limits. IMPRESSION: No acute intrathoracic abnormality. POS: HOME
--- NOTE | 2020-04-26 18:10 | CT ---
CT BRAIN WITHOUT CONTRAST: 04/26/20 HISTORY: Altered mental status. COMPARISON: None. FINDINGS: Moderate periventricular white matter disease. Left palma radiata white matter disease. No acute hem orrhage. No midline shift or mass effect. The calvarium is intact. The paranasal sinuses and mastoids are clear. IMPRESSION: 1. Moderate advanced microangiopathic changes for age. No acute hemorrhage. 2. Given the lack of comparison examination, a small superimposed white matter infarction cannot be excluded. MRI recommended if clinically warranted. POS: HOME
[2020-04-26] MEDS ORDERED: Aspirin Chewable 81 MG TAB ONE (18:37)
[2020-04-26] MEDS ORDERED: Acetaminophen 650 MG Suppository PR PRN (18:51)
[2020-04-26] MEDS ORDERED: Acetaminophen 325 MG TAB PO PRN (18:51)
--- NOTE | 2020-04-26 19:37 | PDOC.EVN ---
Event Note - Event Note Event Note: Chart reviewed. Pt seen. Discussed with RAMONA Ya Flower. VSS S1, S2, reg Lungs CTA 45 yo pt with ESRD on dialysis presenting with weakness and numbness, being admitted for w/u to rule out stroke
[2020-04-26] MEDS ORDERED: Dextrose 50% Abboject 50 ML SYRINGE SLOW IVP PRN (19:57)
[2020-04-26] MEDS ORDERED: HumaLOG 300 UNITS/3 ML VIAL SC PRN ×2 (19:57)
[2020-04-26] MEDS ORDERED: Dextrose 5% in Water 1,000 ML IV PRN (19:57)
[2020-04-26] MEDS ORDERED: Melatonin 3 MG TAB PO PRN (20:59)
[2020-04-26] MEDS ORDERED: Famotidine/PF 20 mg/2ml Vial SLOW IVP SCH (21:00)
[2020-04-26] MEDS: Lidocaine 5% Patch TD SCH (21:38)
[2020-04-26] MEDS: Atorvastatin Calcium 40 MG TAB PO SCH (21:51)
[2020-04-26] MEDS ORDERED: Lorazepam 2 MG/ML VIAL SLOW IVP SCH (22:15)
--- NOTE | 2020-04-27 00:18 | PDOC.HHP ---
Hospitalist HPI - History of Present Illness Right facial weakness and slurred speech History of Present Illness: Patient presents with complaints of right facial weakness and slurred speech since yesterday. States a couple of days ago he had weakness and numbness in his right arm and leg. He did not seek medical attention. He continues to feel some weakness in his right arm and leg but sensation is intact. Reports having normal sensation on his face. Has had trouble eating. States he feels like he cant control his mouth. Denies having symptoms like this in the past. Denies any gait changes. Patient reportedly seen at [facility] for syncope after dialysis. ED Course: Patient given [address] head showed no acute intracranial abnormalities. Labs showed normal troponin. CK 190. BUN 23, Creat 5.70, GFR 11. Glucose 308. LFTs normal. WCC 5.1, Hgb 12.1, Hct 37, platelets 279 EKG done in the E D showed HR 82. NSR. No ST changes or T wave abnormalities. Hospitalist ROS - Review of Systems Constitutional: denies: fever, chills, sweats, weakness, malaise, other Eyes: denies: pain, vision change, conjunctivae inflammation, eyelid inflammation, redness, other ENT: reports: other (difficulty eating/chewing). denies: ear pain, ear discharge, nose pain, nose discharge, nose congestion, mouth pain, mouth swelling, throat pain, throat swelling Respiratory: denies: cough, dry, shortness of breath, hemoptysis, SOB with excertion, pleuritic pain, sputum, wheezing, other Cardiovascular: denies: chest pain, palpitations, orthopnea, paroxysmal noc. dyspnea, edema, light headedness, other Gastrointestinal: denies: nausea, vomiting, abdominal pain, diarrhea, constipation, melena, hematochezia, other Genitourinary: denies: dysuria, frequency, incontinence, hematuria, retention, other Musculoskeletal: denies: neck pain, shoulder pain, arm pain, back pain, hand pain, leg pain, foot pain, other Skin: denies: rash, lesions, viraj, bruising, other Neurological: reports: weakness (facial weakness), numbness (RUE and RLE weakness/numbness 2 days ago, has resolved. Still with difficulty with fine motor function in right hand.) - Medication Medications: Active Medications Generic Name Dose Route Start Last Admin Trade Name Freq PRN Reason Stop Dose Admin Atorvastatin Calcium 40 mg 04/26/20 21:00 04/26/20 21:51 Lipitor PO Not Given HS ANDREA Famotidine 20 mg 04/26/20 21:00 04/26/20 21:51 Pepcid SLOW IVP Not Given QPM ANDREA Lidocaine 1 patch 04/27/20 22:00 04/26/20 21:38 Lidoderm 5% Patch TD 1 patch 220 ANDREA Administration Lorazepam 0.25 mg 04/26/20 22:15 04/26/20 23:05 Ativan SLOW IVP 04/27/20 00:15 0.25 mg NOW ANDREA Administration Hospitalist History - Past Medical History Source: patient Cardiac: reports: HTN Renal/: reports: Other Endocrine: reports: Diabetes - Past Surgical History Past Surgical History: reports: Other (port placed to right chest) - Family History Family History: reports: no pertinent history - Social History Smoking Status: Never smoker Alcohol: reports: None Drugs: reports: none Living Situation: Alone Activity level: independent ambulation - Exam General Appearance: NAD, awake alert Eye: PERRL, anicteric sclera ENT: normocephalic atraumatic, no oropharyngeal lesions, moist mucosa ENT - other findings: obvious right facial weakness Neck: supple, symmetric, no JVD, no thyromegaly, no lymphadenopathy Heart: RRR, no murmur, no gallops, no rubs, normal peripheral pulses Respiratory: CTAB, no wheezes, no rales, no ronchi, normal chest expansion Gastrointestinal: soft, non-tender, non-distended, normal bowel sounds Extremities: no cyanosis, no clubbing, no edema Skin: normal turgor, no lesions, no rashes Neurological: cranial nerve grossly intact, normal sensation to touch, no weakness Musculoskeletal: normal tone, no muscle wasting, diffuse muscle atrophy Musculoskeletal - other findings: strength 4/5 in RUE/RLE and power 5/5 in LUE and LLE, Right facial weakness Psychiatric: normal affect, normal behavior, A&O x 3 Hospitalist Results - Labs Result Diagrams: 04/26/20 17:01 04/26/20 17:01 Lab results: WBC 5.1 thou/uL (4.8-10.8) 04/26/20 17:01 Hgb 12.1 g/dL (14.0-18.0) L 04/26/20 17:01 Hct 37.0 % (42.0-52.0) L 04/26/20 17:01 MCV 92.5 fL (78.0-98.0) 04/26/20 17:01 Plt Count 279 thou/uL (130-400) 04/26/20 17:01 Neutrophils % 64.3 % (42.0-75.0) 04/26/20 17:01 Sodium 139 mmol/L (136-145) 04/26/20 17:01 Potassium 4.5 mmol/L (3.5-5.1) 04/26/20 17:01 Chloride 97 mmol/L (98-107) L 04/26/20 17:01 Carbon Dioxide 32 mmol/L (22-29) H 04/26/20 17:01 BUN 23 mg/dL (8.9-20.6) H 04/26/20 17:01 Creatinine 5.70 mg/dL (0.7-1.3) H 04/26/20 17:01 Glucose 308 mg/dL (70-105) H 04/26/20 17:01 Calcium 8.9 mg/dL (7.8-10.44) 04/26/20 17:01 Total Bilirubin 0.5 mg/dL (0.2-1.2) 04/26/20 17:01 AST 14 U/L (5-34) 04/26/20 17:01 ALT 12 U/L (8-55) 04/26/20 17:01 Alkaline Phosphatase 103 U/L (40-110) 04/26/20 17:01 Creatine Kinase 190 U/L (30-200) 04/26/20 17:01 Troponin I 0.011 ng/mL (< 0.028) 04/26/20 17:01 Serum Total Protein 7.5 g/dL (6.0-8.3) 04/26/20 17:01 Albumin 4.2 g/dL (3.5-5.0) 04/26/20 17:01 - Radiology Interpretation CT scan - head Status: report reviewed by me Hospitalist H&P A/P - Problem (1) CVA (cerebral vascular accident) Code(s): I63.9 - CEREBRAL INFARCTION, UNSPECIFIED Status: Suspected (2) DM2 (diabetes mellitus, type 2) Status: Chronic Qualifiers: Diabetes mellitus halfway insulin use: with long term care pharmacist use Diabetes mellitus complication status: with kidney complications Diabetes mellitus complication detail: with chronic kidney disease Chronic kidney disease stage : on chronic dialysis Qualified Code(s): E11.22 - Type 2 diabetes mellitus with diabetic chronic kidney disease; N18.6 - End stage renal disease; Z79.4 - terminal clerk (current) use of insulin; Z99.2 - Dependence on renal dialysis (3) ESRD (end stage renal disease) on dialysis Code(s): N18.6 - END STAGE RENAL DISEASE; Z99.2 - DEPENDENCE ON RENAL DIALYSIS Status: Chronic (4) Essential hypertension Code(s): I10 - ESSENTIAL (PRIMARY) HYPERTENSION Status: Chronic - Plan Plan: MRI brain and Echo ordered. Neuro consult ordered. Statin and Aspirin. Monitor BP. NPO until bedside screening for dysphagia done. Orthostatic BPs. Monitor electrolytes. Monitor Glucose, ISS initiated. PT/OT consulted (stroke team). Nephrology consulted (ESRD on dialysis [facility]). GI Prophylaxis with famotidine. DVT prophylaxis with mechanical SCDs.
[2020-04-27] MEDS ORDERED: Lorazepam 2 MG/ML VIAL SLOW IVP SCH (07:00)
--- NOTE | 2020-04-27 09:21 | CON ---
DATE OF CONSULTATION: REASON FOR CONSULTATION: End-stage renal disease for maintenance hemodialysis. HISTORY OF PRESENT ILLNESS: This is a very pleasant 45-year-old gentleman presented last night for facial droop and slurred speech. The patient has had this for a few days. The patient is on dialysis Thursday, Thursday, Thursday. The patient denies any nausea, vomiting, or chest pain at this time. PAST MEDICAL HISTORY: Significant for end-stage renal disease, hypertension, dialysis via tunneled dialysis catheter, AV fistula. MEDICATIONS: Home medications list reviewed. Hospital medications list reviewed. ALLERGIES: REVIEWED. REVIEW OF SYSTEMS: 15-point review of systems was performed and negative except for positives noted above. HEENT: Eyes intact, no diplopia. Ears: No hearing loss or earache. Nose: No discharge or bleeding. Chest: No cough or phlegm. Abdomen: No nausea or vomiting. Genitourinary: No hematuria. No Ardon catheter. Musculoskeletal: No low back pain. No joint swelling or pain. Neurological: No syncope. No seizures. Skin: No complaints of rash or itching. Psychiatric: No depression. Constitutional: No weight loss or loss of appetite. PHYSICAL EXAMINATION: General: The patient is awake and alert. Vital Signs: Afebrile, pulse 76, breathing at 20, blood pressure 176/84. HEENT: Head normocephalic and atraumatic. Eyes intact, no ulcers. Nose intact, no ulcers. Ears intact, no ulcers. Neck: Supple. No JVD. Chest: Symmetrical and clear. Cardiovascular: Shows S1 and S2, no rub, no murmur. Gastrointestinal: Abdomen is soft, bowel sounds positive. Extremities: Show no edema or ulcers. Skin: Shows no rash or petechiae. Musculoskeletal: Shows no joint swelling or stiffness. Genitourinary: Shows no Ardon or CVA tenderness. Neurologic: Motor intact. Cranial nerves intact. LABORATORY DATA: Hemoglobin 12.1. Potassium is 4.8. ASSESSMENT AND PLAN: 1. Stage 6 chronic kidney disease. Plan dialysis per schedule Thursday, Thursday, Thursday. 2. Hypertension. 3. Titrate medication per Neurology. 4. Anemia, stable. 5. Medication based on GFR appropriate. 6. Status post cerebrovascular accident. Job ID: [id number]
--- NOTE | 2020-04-27 09:45 | ULT ---
BILTAERAL CAROTID DUPLEX ULTRASOUND: HISTORY: A 45-year-old male with right-sided facial weakness. TECHNIQUE: Leonardo scale ultrasound with color flow and spectral Doppler imaging of the extracranial carotid artery systems is performed bilaterally. FINDINGS: No significant interval wall thickening or plaque formation is noted on either side. The peak systolic velocity in the right ICA measures 63 cm/s with an end-diastolic velocity of 15 cm/ s and a systolic ratio of 0.72. The peak systolic velocity in the left ICA measures 79 cm/s with an end-diastolic velocity of 25 cm/s and a systolic ratio of 0.81. Flow in both vertebral arteries remains antegrade. IMPRESSION: No evidence of hemodynamically significant stenosis. POS: [facility]
[2020-04-27] MEDS: Lidocaine Patch Removal 1 EACH TOP SCH (11:32)
--- NOTE | 2020-04-27 11:34 | MRI ---
MRI BRAIN NONCONTRAST: DATE: 04/27/2020 HISTORY: 45-year-old male with stroke, altered mental status COMPARISON: No prior MRIs of brain available FINDINGS: Just lateral to the body of the left lateral ventricle, in the left palma radiata, along the superio r border of the left basal ganglia, there is a 1.5 x 1 cm patchy focus of hyperintense signal on the T2 WI and FLAIR, which has strongly restricted diffusion, representing an acute infarction. It ma y involve a small portion of the left caudate body. In the contralateral right palma radiata, there is a 0.3 x 0.8 cm old deep white matter lacunar infa rction. There are mostly mild chronic ischemic white matter changes in the cerebrum. There is focal midline s ignal abnormality in the posterior aspect of the shyla consistent with chronic ischemic change and or old lacunar infarction. There are transverse linear signal abnormalities extending right and left laterally from this. No evidence of major recent or remote intra-axial hemorrhage. Ventricles are normal in size and confi guration. No mass effect, midline shift, or extra-axial fluid collection. IMPRESSION: 1) acute lacunar infarction of left corpus striatum and deep white matter. 2) tiny old lacunar infarction of contralateral right cerebral deep white matter
[2020-04-27] MEDS: Aspirin 81 mg Enteric Coated Tablet PO SCH (11:40)
--- NOTE | 2020-04-27 12:51 | CON ---
NEUROLOGY CONSULTATION DATE OF CONSULTATION: 04/27/2020 REASON FOR CONSULTATION: Right facial droop, dysarthria, and right hemiparesis. HISTORY OF PRESENT ILLNESS: Mr. Wilson Noyola is a 45-year-old Iranian- speaking male, who was admitted for right facial weakness, right facial droop, and dysarthria associated with numbness and focal paresthesias and weakness of the right upper and lower extremity. The symptoms started yesterday and he also has trouble eating and he has a sensation as he is unable to control his mouth and he has also problem with walking . The patient denies nausea, vomiting, headache, dizziness, chest pain associated with the episode. In the emergency room, he was given aspirin. A CT scan was done, which did not reveal any acute intracranial pathology. Labs showed glucose of 308 and LFTs were normal. BUN was 23 and creatinine 5.70, GFR 11. He is on chronic dialysis. EKG reveals normal sinus rhythm. Review of Systems Constitutional: denies: fever, chills, sweats, weakness, malaise, other Eyes: denies: pain, vision change, conjunctivae inflammation, eyelid inflammation, redness, other ENT: reports: other (difficulty eating/chewing). denies: ear pain, ear discharge, nose pain, nose discharge, nose congestion, mouth pain, mouth swelling, throat pain, throat swelling Respiratory: denies: cough, dry, shortness of breath, hemoptysis, SOB with excertion, pleuritic pain, sputum, wheezing, other Cardiovascular: denies: chest pain, palpitations, orthopnea, paroxysmal noc. dyspnea, edema, light headedness, other Gastrointestinal: denies: nausea, vomiting, abdominal pain, diarrhea, constipation, melena, hematochezia, other Genitourinary: denies: dysuria, frequency, incontinence, hematuria, retention, other Musculoskeletal: denies: neck pain, shoulder pain, arm pain, back pain, hand pain, leg pain, foot pain, other Skin: denies: rash, lesions, viraj, bruising, other Neurological: reports: right facial weakness , numbness (RUE and RLE weakness/ numbness ) Active Medications Generic Name Dose Route Start Last Admin Trade Name Freq PRN Reason Stop Dose Admin Atorvastatin Calcium 40 mg 04/26/20 21:00 06/04/20 21:51 Lipitor PO Not Given HS ANDREA Famotidine 20 mg 04/26/20 21:00 04/26/20 21:51 Pepcid SLOW IVP Not Given QPM ANDREA Lidocaine 1 patch 04/27/20 22:00 04/26/20 21:38 Lidoderm 5% Patch TD 1 patch 2200 ANDREA Administration Lorazepam 0.25 mg 04/26/20 22:15 04/26/20 23:05 Ativan SLOW IVP 04/27/20 00:15 0.25 mg NOW ANDREA Administration - Past Medical History Source: patient Cardiac: reports: HTN Renal/: reports: Other Endocrine: reports: Diabetes - Past Surgical History Past Surgical History: reports: Other (port placed to right chest) - Family History Family History: reports: no pertinent history - Social History Smoking Status: Never smoker Alcohol: reports: None Drugs: reports: none Living Situation: Alone Activity level: independent ambulation - Exam General Appearance: NAD, awake alert Eye: PERRL, anicteric sclera ENT: normocephalic atraumatic, no oropharyngeal lesions, moist mucosa ENT - other findings: obvious right facial weakness Neck: supple, symmetric, no JVD, no thyromegaly, no lymphadenopathy Heart: RRR, no murmur, no gallops, no rubs, normal peripheral pulses Respiratory: CTAB, no wheezes, no rales, no ronchi, normal chest expansion Gastrointestinal: soft, non-tender, non-distended, normal bowel sounds Extremities: no cyanosis, no clubbing, no edema Skin: normal turgor, no lesions, no rashes Neurological: Mental status, the patient is alert and oriented to person, place , and time. Cranial nerves 2 through 12 intact except 7 right facial droop and 10 dysarthria. Motor, muscle tone and bulk are normal. Strength 4/5 in the right upper and lower extremity and 5/5 in the left upper and lower extremity. Sensory, decreased sensation to pinprick and light touch in the right upper and lower extremity. Intact in the left upper and lower extremity. Reflexes symmetric bilaterally. Cerebellar, slow on the right secondary to weakness. Gait deferred due to the patient's safety reasons. Musculoskeletal: normal tone, no muscle wasting Psychiatric: normal affect, normal behavior, A&O x 3 Hospitalist Results - 04/26/20 17:01 Lab results: WBC 5.1 thou/uL (4.8-10.8) 04/26/20 17:01 Hgb 12.1 g/dL (14.0-18.0) L 04/26/20 17:01 Hct 37.0 % (42.0-52.0) L 04/26/20 17:01 MCV 92.5 fL (78.0-98.0) 04/26/20 17:01 Plt Count 279 thou/uL (130-400) 04/26/20 17:01 Neutrophils % 64.3 % (42.0-75.0) 04/26/20 17:01 Sodium 139 mmol/L (136-145) 04/26/20 17:01 Potassium 4.5 mmol/L (3.5-5.1) 04/26/20 17:01 Chloride 97 mmol/L (98-107) L 04/26/20 17:01 Carbon Dioxide 32 mmol/L (22-29) H 04/26/20 17:01 BUN 23 mg/dL (8.9-20.6) H 04/26/20 17:01 Creatinine 5.70 mg/dL (0.7-1.3) H 04/26/20 17:01 Glucose 308 mg/dL (70-105) H 04/26/20 17:01 Calcium 8.9 mg/dL (7.8-10.44) 04/26/20 17:01 Total Bilirubin 0.5 mg/dL (0.2-1.2) 04/26/20 17:01 AST 14 U/L (5-34) 04/26/20 17:01 ALT 12 U/L (8-55) 04/26/20 17:01 Alkaline Phosphatase 103 U/L (40-110) 04/26/20 17:01 Creatine Kinase 190 U/L (30-200) 04/26/20 17:01 Troponin I 0.011 ng/mL (< 0.028) 04/26/20 17:01 Serum Total Protein 7.5 g/dL (6.0-8.3) 04/26/20 17:01 Albumin 4.2 g/dL (3.5-5.0) 04/26/20 17:01 - Radiology Interpretation CT scan - head Status: report reviewed by me LABORATORY DATA: Lab data reviewed, which shows CBC was essentially unremarkable and the patient does have anemia with hemoglobin of 12.1 and hematocrit of 37 and chronic kidney disease with BUN of 23 with creatinine of 5.7. - Problem (1) CVA (cerebral vascular accident) Code(s): I63.9 - CEREBRAL INFARCTION, UNSPECIFIED Status: Suspected (2) DM2 (diabetes mellitus, type 2) Status: Chronic Qualifiers: Diabetes mellitus exterminator helper insulin use: with correction use Diabetes mellitus complication status: with kidney complications Diabetes mellitus complication detail: with chronic kidney disease Chronic kidney disease stage : on chronic dialysis Qualified Code(s): E11.22 - Type 2 diabetes mellitus with diabetic chronic kidney disease; N18.6 - End stage renal disease; Z79.4 - detention (current) use of insulin; Z99.2 - Dependence on renal dialysis (3) ESRD (end stage renal disease) on dialysis Code(s): N18.6 - END STAGE RENAL DISEASE; Z99.2 - DEPENDENCE ON RENAL DIALYSIS Status: Chronic (4) Essential hypertension Code(s): I10 - ESSENTIAL (PRIMARY) HYPERTENSION Status: Chronic ASSESSMENT AND PLAN: Mr. Noyola is a 45-year-old with history significant for diabetes, hypertension, chronic kidney disease, presented with acute onset of dysarthria, right facial droop, and right hemiparesis. MRI brain reviewed, which was consistent with acute infarction in the left palma radiata. Carotid Dopplers did not reveal significant stenosis. Recommend 2D echo to rule out cardioembolic source, pending at this time. Neuro checks every 4 hours. Continue aspirin and high-intensity statin for secondary stroke prevention. Permissive blood pressure control at this time. N.p.o. until bedside screening for dysphagia, PT/OT/ Speech. Strict control of blood glucose. The patient with end-stage renal disease, on dialysis Thursday, Thursday, and Thursday. Nephrology on board. Continue telemetry, DVT prophylaxis. Continue home medications and medical management per primary team. We will continue to follow. Thank you for the consult. Job ID: [id number] MTDD
--- NOTE | 2020-04-27 15:04 | PDOC.HOSPP ---
- Subjective Encounter Date: 04/27/20 Encounter Time: 11:30 Subjective: Patient seen and examined for Acute CVA. No new focal deficits. Speech improving. No new complaints. No overnight events - Objective Vital Signs & Weight: Vital Signs (12 hours) Temp Pulse Pulse Resp BP BP BP 04/27/20 12:00 97.9 F 82 16 180/90 H 04/27/20 09:24 77 187/89 H 196/94 H 04/27/20 09:20 187/89 H 196/94 H 04/27/20 08:54 04/27/20 07:14 98.5 F 83 16 182/88 H 04/27/20 03:10 97.6 F 74 20 184/88 H Pulse Ox 04/27/20 12:00 99 04/27/20 09:24 04/27/20 09:20 04/27/20 08:54 95 04/27/20 07:14 95 04/27/20 03:10 96 Weight Admit Weight 205 lb 12.8 oz Weight 205 lb 12.8 oz I&O: 04/26/20 04/27/20 04/28/20 06:59 06:59 06:59 Intake Total 0 Balance 0 Result Diagrams: 04/26/20 17:01 04/26/20 17:01 Additional Labs: Accuchecks 04/27/20 04/27/20 04/26/20 10:50 05:43 21:13 POC Glucose 158 H 169 H 277 H Radiology Reviewed by me: Yes (MRI brain - acute lacunar CVA left corpus striatum) EKG Reviewed by me: Yes (Tele SR) Hospitalist ROS - Review of Systems Respiratory: denies: cough, dry, shortness of breath, hemoptysis, SOB with excertion, pleuritic pain, sputum, wheezing, other Cardiovascular: denies: chest pain, palpitations, orthopnea, paroxysmal noc. dyspnea, edema, light headedness, other Gastrointestinal: denies: nausea, vomiting, abdominal pain, diarrhea, constipation, melena, hematochezia, other - Medication Medications: Active Medications Generic Name Dose Route Start Last Admin Trade Name Freq PRN Reason Stop Dose Admin Aspirin 81 mg 04/27/20 09:00 04/27/20 11:40 Ecotrin PO 81 mg DAILY ANDREA Administration Atorvastatin Calcium 40 mg 04/26/20 21:00 04/26/20 21:51 Lipitor PO Not Given HS ANDREA Lidocaine 1 patch 04/27/20 22:00 04/26/20 21:38 Lidoderm 5% Patch TD 1 patch 2199 ANDREA Administration Miscellaneous Medication 1 each 04/27/20 10:00 04/27/20 11:32 Lidocaine Patch Removal TOP 1 each 1000 ANDREA Administration - Exam General Appearance: NAD Neck: supple, symmetric, no JVD, no carotid bruit Heart: RRR, no gallops, no rubs, normal peripheral pulses Respiratory: no wheezes, no rales, no ronchi, normal chest expansion Gastrointestinal: soft, non-tender, non-distended, normal bowel sounds, no guarding, no rigidity Extremities: no cyanosis Neurological: cranial nerve grossly intact, normal sensation to touch, no new deficit Neurological - other findings: Rt sided weakness 4/5 Psychiatric: normal affect, A&O x 3 Hosp A/P - Plan DVT proph w/SCDs Acute CVA HTN ESRD on dialysis DM2 Chronic Anemia prob due to renal disease Obesity BMI 32.2 Swallow dysfunction PLAN: Started on ASA Cont Statins Restart Coreg and Amlodipine Carotid negative Await Echo Dialysis per Nephrology Await Neuro input Stroke team AM labs PRN meds
[2020-04-27] MEDS ORDERED: Famotidine 20 MG TAB PO SCH (21:00)
[2020-04-27] MEDS ORDERED: Acetaminophen 325 MG TAB PO PRN (21:30)
[2020-04-27] MEDS ORDERED: Atorvastatin Calcium 40 MG TAB PO SCH (21:30)
[2020-04-27] MEDS ORDERED: Acetaminophen 650 MG Suppository PR PRN (21:31)
[2020-04-27] MEDS ORDERED: Dextrose 50% Abboject 50 ML SYRINGE SLOW IVP PRN (21:32)
[2020-04-27] MEDS ORDERED: Dextrose 5% in Water 1,000 ML IV PRN (21:32)
[2020-04-27] MEDS ORDERED: HumaLOG 300 UNITS/3 ML VIAL SC PRN (21:33)
[2020-04-27] MEDS: Acetaminophen 325 MG TAB PO SCH ×2 (21:36→21:38)
[2020-04-27] MEDS: Carvedilol 6.25 MG TAB PO SCH (21:38)
[2020-04-27] MEDS: Atorvastatin Calcium 40 MG TAB PO SCH (21:38)
[2020-04-28 05:36] LABS: #Basophils 0.1 thou/uL (0.0-0.2); #Eosinphils 0.2 thou/uL (0.0-0.7); #Lymphocytes 1.2 thou/uL (1.20-3.40); #Monocytes 0.6 thou/uL (0.11-0.59); #Neutrophils 3.6 thou/uL (1.40-6.50); %Eosinophils 3.2 % (0.0-10.0); %Lymphocytes 21.1 % (21.0-51.0); %Monocytes 11.1 % (0.0-10.0); %Neutrophils 63.6 % (42.0-75.0); Hemoglobin 12.2 g/dL (14.0-18.0); Mean Corpuscular HGB CONC 33.3 g/dL (32.0-36.0); Mean Corpuscular Hemoglobin 31.3 pg (27.0-31.0); Mean Corpuscular Volume 94.1 fL (78.0-98.0); Mean Platelet Volume 7.5 fL (7.4-10.4); Platelet Count 248 thou/uL (130-400); RBC Distribution Width 14.4 % (11.5-14.5); Red Blood Cell (RBC) Count 3.89 mill/uL (4.70-6.10); White Blood Cell (WBC) Count 5.7 thou/uL (4.8-10.8)
[2020-04-28] MEDS: HumaLOG 300 UNITS/3 ML VIAL SC PRN ×3 (05:48→16:58)
[2020-04-28 06:16] LABS: Anion Gap 15 mmol/L (10-20); BUN (Urea Nitrogen) 23 mg/dL (8.9-20.6); Calc. Creatinine Clearance 22 mL/min (70-130); Calcium 8.6 mg/dL (7.8-10.44); Carbon Dioxide 29 mmol/L (22-29); Chloride 98 mmol/L (98-107); Estimated GFR-MDRD 11; Glucose 171 mg/dL (70-105); Potassium 4.4 mmol/L (3.5-5.1); Sodium 138 mmol/L (136-145)
[2020-04-28] MEDS: Carvedilol 6.25 MG TAB PO SCH ×2 (08:45→15:36)
[2020-04-28] MEDS: Famotidine 20 MG TAB PO SCH (08:45)
[2020-04-28] MEDS: Amlodipine 5 MG TAB PO SCH (08:45)
[2020-04-28] MEDS: Acetaminophen 325 MG TAB PO SCH ×2 (08:45→15:36)
[2020-04-28] MEDS: Lidocaine Patch Removal 1 EACH TOP SCH (09:02)
[2020-04-28] MEDS: Aspirin 81 mg Enteric Coated Tablet PO SCH (09:02)
--- NOTE | 2020-04-28 10:32 | PRG ---
DATE OF SERVICE: 04/28/2020 SUBJECTIVE: A 45-year-old male, being seen for end-stage renal disease. The patient denied any nausea, vomiting, or chest pain. OBJECTIVE: GENERAL: The patient is awake and alert. VITAL SIGNS: Afebrile. Pulse 81, breathing 16, blood pressure 176/86. HEENT: Head normocephalic and atraumatic. Eyes intact, no ulcers. Nose intact, no ulcers. Ears intact, no ulcers. NECK: Supple. No JVD. CHEST: Symmetrical and clear. CARDIOVASCULAR: Shows S1 and S2, no rub, no murmur. GASTROINTESTINAL: Abdomen is soft, bowel sounds positive. EXTREMITIES: Show no edema or ulcers. SKIN: Shows no rash or petechiae. MUSCULOSKELETAL: Shows no joint swelling or stiffness. GENITOURINARY: Shows no Ardon or CVA tenderness. NEUROLOGIC: Motor intact. Cranial nerves intact. LABORATORY DATA: Reviewed. ASSESSMENT AND PLAN: 1. Stage 6 chronic kidney disease. Plan dialysis. 2. Hypertension. Titrate home medication. 3. Anemia, stable. 4. Medication based on GFR appropriate. Job ID: [id number]
[2020-04-28] MEDS ORDERED: Losartan 25 MG TAB PO SCH (11:00)
--- NOTE | 2020-04-28 11:15 | PDOC.HOSPP ---
- Subjective Encounter Date: 04/28/20 Encounter Time: 11:10 Subjective: f/u for acute lacunar infarct of L corpus striatum currently tx with ASA/ Lipitor. Receiving maintenance HD per Renal service. - Objective Vital Signs & Weight: Vital Signs (12 hours) Temp Pulse Resp BP BP Pulse Ox 04/28/20 10:51 97.9 F 73 16 176/87 H 99 04/28/20 08:45 81 176/86 H 04/28/20 08:30 98.7 F 72 16 176/86 H 99 04/28/20 05:47 173/85 H 04/28/20 03:51 98.2 F 81 18 189/83 H 99 Weight Admit Weight 205 lb 12.8 oz Weight 212 lb 8.41 oz I&O: 04/27/20 04/28/20 04/29/20 06:59 06:59 06:59 Intake Total 0 750 Output Total 3000 Balance 0 -2250 Result Diagrams: 04/28/20 04:48 04/28/20 04:48 Additional Labs: Accuchecks 04/28/20 04/27/20 04/27/20 05:34 21:53 20:08 POC Glucose 177 H 243 H 131 H 04/27/20 17:07 POC Glucose 143 H Radiology Reviewed by me: Yes (MRI brain - acute lacunar L corpus striatum infarct) EKG Reviewed by me: Yes (Tele - N/A) Hospitalist ROS - Medication Medications: Active Medications Generic Name Dose Route Start Last Admin Trade Name Freq PRN Reason Stop Dose Admin Acetaminophen 650 mg 04/27/20 17:00 04/28/20 08:45 Tylenol PO 650 mg BID-WM ANDREA Administration Amlodipine Besylate 5 mg 04/28/20 09:00 04/28/20 08:45 Norvasc PO 5 mg DAILY ANDREA Administration Aspirin 81 mg 04/27/20 09:00 04/28/20 09:02 Ecotrin PO 81 mg DAILY ANDREA Administration Carvedilol 6.25 mg 04/27/20 17:00 04/28/20 08:45 Coreg PO 6.25 mg BID-WM ANDREA Administration Famotidine 20 mg 04/28/20 09:00 04/28/20 08:45 Pepcid PO 20 mg DAILY ANDREA Administration Insulin Human Lispro 0 units 04/27/20 21:33 04/28/20 05:48 Humalog SC 2 unit .MILD SLIDING SCALE PRN Administration Mild Correctional Scale Insulin Human Lispro 0 units 04/27/20 21:33 04/27/20 22:29 Humalog SC 2 unit .BEDTIME SLIDING SC PRN Administration Bedtime Correctional Scale Lidocaine 1 patch 04/27/20 22:00 04/26/20 21:38 Lidoderm 5% Patch TD 1 patch 2200 ANDREA Administration Miscellaneous Medication 1 each 04/27/20 10:00 04/28/20 09:02 Lidocaine Patch Removal TOP Not Given 1000 ANDREA Sodium Chloride 10 ml 04/27/20 21:32 04/27/20 21:39 Flush - Normal Saline IVF 10 ml Q12HR PRN Administration Saline Flush - Exam General Appearance: NAD, awake alert Eye: PERRL, anicteric sclera ENT: normocephalic atraumatic, no oropharyngeal lesions Neck: supple, symmetric, no JVD, no thyromegaly, no lymphadenopathy Heart: RRR, no murmur, no gallops, no rubs, normal peripheral pulses Heart - other findings: S1, S2 Respiratory: CTAB, no wheezes, no rales, no ronchi, normal chest expansion Gastrointestinal: soft, non-tender, non-distended, normal bowel sounds, no palpable masses Extremities: no cyanosis, no clubbing, no edema Skin: normal turgor, no lesions Neurological: no new deficit Neurological - other findings: R facial droop, dysarthria, RUE weakness, dysphagia Musculoskeletal: generalized weakness Psychiatric: normal affect, A&O x 3 Hosp A/P (1) CVA (cerebral vascular accident) Code(s): I63.9 - CEREBRAL INFARCTION, UNSPECIFIED Status: Acute Qualifiers: Laterality of affected vessel: left Plan: Ischemic/lacunar infarct, continue ASA/Lipitor, general stroke protocol, PT/OT, MAINTENANCE CLERK evaluating for dysphagia (2) DM2 (diabetes mellitus, type 2) Status: Chronic Qualifiers: Diabetes mellitus equipment operator intermodal yard insulin use: with equipment operator intermodal yard use Diabetes mellitus complication status: with kidney complications Diabetes mellitus complication detail: with chronic kidney disease Chronic kidney disease stage : on chronic dialysis Qualified Code(s): E11.22 - Type 2 diabetes mellitus with diabetic chronic kidney disease; N18.6 - End stage renal disease; Z79.4 - long-term (current) use of insulin; Z99.2 - Dependence on renal dialysis Plan: Continue ISS pending consistent po intake, serial accuchecks (3) ESRD (end stage renal disease) on dialysis Code(s): N18.6 - END STAGE RENAL DISEASE; Z99.2 - DEPENDENCE ON RENAL DIALYSIS Status: Chronic Plan: HD per Renal service (4) Essential hypertension Code(s): I10 - ESSENTIAL (PRIMARY) HYPERTENSION Status: Chronic Plan: Resume home BP regimen, serial BP monitoring - Plan PT/OT, social sciences research scientist, speech therapy, out of bed/ambulate, DVT proph w/SCDs Stable currently MBS pending due to dysphagia CM for Rehab vs HH options Continue ASA/Lipitor Resume home BP regimen PT/OT for mobilization HD per Renal service
--- NOTE | 2020-04-28 12:09 | PDOC.HOSPP ---
- Subjective Encounter Date: 04/28/20 Subjective: NEUROLOGY PROGRESS NOTE No acute events overnight. - Objective Vital Signs & Weight: Vital Signs (12 hours) Temp Pulse Resp BP BP Pulse Ox 04/28/20 10:51 97.9 F 73 16 176/87 H 99 04/28/20 08:45 81 176/86 H 04/28/20 08:30 98.7 F 72 16 176/86 H 99 04/28/20 05:47 173/85 H 04/28/20 03:51 98.2 F 81 18 189/83 H 99 Weight Admit Weight 205 lb 12.8 oz Weight 212 lb 8.41 oz I&O: 04/27/20 04/28/20 04/29/20 06:59 06:59 06:59 Intake Total 0 750 Output Total 3000 Balance 0 -2250 Result Diagrams: 04/28/20 04:48 04/28/20 04:48 Additional Labs: Accuchecks 04/28/20 04/28/20 04/27/20 10:58 05:34 21:53 POC Glucose 233 H 177 H 243 H 04/27/20 04/27/20 20:08 17:07 POC Glucose 131 H 143 H Radiology Reviewed by me: Yes EKG Reviewed by me: Yes Hospitalist ROS - Review of Systems Constitutional: denies: fever, chills, sweats, weakness, malaise, other Eyes: denies: pain, vision change, conjunctivae inflammation, eyelid inflammation, redness, other ENT: denies: ear pain, ear discharge, nose pain, nose discharge, nose congestion , mouth pain, mouth swelling, throat pain, throat swelling, other Respiratory: denies: cough, dry, shortness of breath, hemoptysis, SOB with excertion, pleuritic pain, sputum, wheezing, other Cardiovascular: denies: chest pain, palpitations, orthopnea, paroxysmal noc. dyspnea, edema, light headedness, other Gastrointestinal: denies: nausea, vomiting, abdominal pain, diarrhea, constipation, melena, hematochezia, other Genitourinary: denies: dysuria, frequency, incontinence, hematuria, retention, other Musculoskeletal: denies: neck pain, shoulder pain, arm pain, back pain, hand pain, leg pain, foot pain, other Neurological: reports: weakness, numbness, incoordination. denies: change in speech, confusion, seizures, other - Medication Medications: Active Medications Generic Name Dose Route Start Last Admin Trade Name Freq PRN Reason Stop Dose Admin Acetaminophen 650 mg 04/27/20 17:00 04/28/20 08:45 Tylenol PO 650 mg BID-WM ANDREA Administration Amlodipine Besylate 5 mg 04/28/20 09:00 04/28/20 08:45 Norvasc PO 5 mg DAILY ANDREA Administration Aspirin 81 mg 04/27/20 09:00 04/28/20 09:02 Ecotrin PO 81 mg DAILY ANDREA Administration Carvedilol 6.25 mg 04/27/20 17:00 04/28/20 08:45 Coreg PO 6.25 mg BID-WM ANDREA Administration Famotidine 20 mg 04/28/20 09:00 04/28/20 08:45 Pepcid PO 20 mg DAILY ANDREA Administration Insulin Human Lispro 0 units 04/27/20 21:33 04/28/20 11:20 Humalog SC 3 unit .MILD SLIDING SCALE PRN Administration Mild Correctional Scale Insulin Human Lispro 0 units 04/27/20 21:33 04/27/20 22:29 Humalog SC 2 unit .BEDTIME SLIDING SC PRN Administration Bedtime Correctional Scale Lidocaine 1 patch 04/27/20 22:00 04/26/20 21:38 Lidoderm 5% Patch TD 1 patch 2200 ANDREA Administration Losartan Potassium 25 mg 04/28/20 11:00 04/28/20 11:20 Cozaar PO 04/28/20 13:00 25 mg NOW ANDREA Administration Miscellaneous Medication 1 each 04/27/20 10:00 04/28/20 09:02 Lidocaine Patch Removal TOP Not Given 1000 ANDREA Sodium Chloride 10 ml 04/27/20 21:32 04/27/20 21:39 Flush - Normal Saline IVF 10 ml Q12HR PRN Administration Saline Flush - Exam General Appearance: awake alert Eye: PERRL ENT: normocephalic atraumatic Neck: supple Heart: RRR Respiratory: CTAB Gastrointestinal: soft Extremities: no cyanosis Skin: normal turgor Neurological: facial droop, hemiplegia, speech deficit Neurological - other findings: right hemiparesis, rt facial droop Musculoskeletal: normal tone, no muscle wasting Psychiatric: normal affect, normal behavior, A&O x 3, oriented to person, oriented to place, oriented to time Hosp A/P (1) CVA (cerebral vascular accident) Code(s): I63.9 - CEREBRAL INFARCTION, UNSPECIFIED Status: Acute Qualifiers: Laterality of affected vessel: left (2) ALIZE (acute kidney injury) Code(s): N17.9 - ACUTE KIDNEY FAILURE, UNSPECIFIED Status: Acute (3) Diabetes Code(s): E11.9 - TYPE 2 DIABETES MELLITUS WITHOUT COMPLICATIONS Status: Acute (4) Hyperkalemia Code(s): E87.5 - HYPERKALEMIA Status: Acute (5) Hypocalcemia Code(s): E83.51 - HYPOCALCEMIA Status: Acute (6) Metabolic acidosis Code(s): E87.2 - ACIDOSIS Status: Acute (7) Orthostatic hypotension Code(s): I95.1 - ORTHOSTATIC HYPOTENSION Status: Acute - Plan PT/OT, speech therapy, out of bed/ambulate, DVT proph w/SCDs 45 year old with acute left corpus striatum lacunar infarction presented with speech deficit and right hemiparesis with focal paraesthesias. Clinically improving. MRI Brain reviewed which showed acute infarction in the left corpus striatum Carotid dopplers did not show hemodynamically significant stenosis. Monitor BP. Strict control of BG. Neurochecks every 4 hours. Continue aspirin and high intensity statin for secondary stroke prevention. Echo completed. Results noted. Telemetry PT/OT/Speech. Continue medical management per primary team. Plan discussed with patient and the .
[2020-04-28] MEDS ORDERED: Amlodipine 5 MG TAB PO SCH (13:00)
[2020-04-28 16:49] LABS: SARS-CoV-2 MS2 Positive; SARS-CoV-2 N Gene Negative; SARS-CoV-2 S Gene Negative; SARS-CoV-2 orf1ab Negative
[2020-04-28] MEDS: Atorvastatin Calcium 40 MG TAB PO SCH (20:28)
[2020-04-28] MEDS: Lidocaine 5% Patch TD SCH (20:29)
[2020-04-29] MEDS: Labetalol HCl 100 MG/20 ML VIAL SLOW IVP PRN ×2 (03:45→21:02)
[2020-04-29] MEDS: HumaLOG 300 UNITS/3 ML VIAL SC PRN ×3 (05:25→16:50)
[2020-04-29] MEDS: Famotidine 20 MG TAB PO SCH (08:40)
[2020-04-29] MEDS: Acetaminophen 325 MG TAB PO SCH ×2 (08:41→16:45)
[2020-04-29] MEDS: Amlodipine 5 MG TAB PO SCH (08:41)
[2020-04-29] MEDS: Carvedilol 6.25 MG TAB PO SCH ×2 (08:42→16:45)
[2020-04-29] MEDS: Lidocaine Patch Removal 1 EACH TOP SCH (08:42)
[2020-04-29] MEDS: Aspirin 81 mg Enteric Coated Tablet PO SCH (09:32)
--- NOTE | 2020-04-29 13:44 | PRG ---
DATE OF SERVICE: 04/29/2020 SUBJECTIVE: A 45-year-old male being seen for end-stage renal disease. The patient denies nausea, vomiting, or chest pain. PHYSICAL EXAMINATION: GENERAL: The patient is awake and alert. VITAL SIGNS: Afebrile, pulse 70, breathing at 16, blood pressure 151/89. HEENT: Head normocephalic and atraumatic. Eyes intact, no ulcers. Nose intact, no ulcers. Ears intact, no ulcers. Neck: Supple. No JVD. Chest: Symmetrical and clear. Cardiovascular: Shows S1 and S2, no rub, no murmur. Gastrointestinal: Abdomen is soft, bowel sounds positive. Extremities: Show no edema or ulcers. Skin: Shows no rash or petechiae. Musculoskeletal: Shows no joint swelling or stiffness. Genitourinary: Shows no Ardon or CVA tenderness. Neurologic: Motor intact. Cranial nerves intact. LABS: Reviewed. ASSESSMENT: 1. Stage 6 chronic kidney disease. Continue dialysis. 2. Hypertension. Recommend increasing amlodipine to home dose of 10 mg and increasing losartan to 50. Please continue home medication. 3. Anemia stable. 4. Medication based on glomerular filtration rate appropriate. Job ID: [id number]
--- NOTE | 2020-04-29 13:49 | RAD ---
MODIFIED BARIUM SWALLOW PERFORMED WITH SPEECH THERAPIST: History: Feeding difficulties, patient status post stroke. FINDINGS: The patient was given a variety of materials. There is some spillage, most pronounced with the thin b arium and some minimal residue. Penetration with various substances and silent aspiration with thin b arium by spoon and nectar. IMPRESSION: Episodes of penetration aspiration as described above. POS: [facility]
--- NOTE | 2020-04-29 14:50 | PDOC.HOSPP ---
- Subjective Encounter Date: 04/29/20 Encounter Time: 14:50 Subjective: f/u for acute ischemic CVA in L corpus striatum on current ASA/Lipitor/Coreg. - Objective Vital Signs & Weight: Vital Signs (12 hours) Temp Pulse Resp BP BP Pulse Ox 04/29/20 12:00 98.2 F 70 16 151/89 H 98 04/29/20 08:42 164/70 H 04/29/20 08:41 71 164/70 H 04/29/20 07:33 98.7 F 71 17 164/70 H 99 04/29/20 04:00 178/86 H 04/29/20 03:45 72 191/90 H 04/29/20 03:25 98.4 F 72 20 191/90 H 96 Weight Admit Weight 205 lb 12.8 oz Weight 212 lb 4.8 oz I&O: 04/28/20 04/29/20 04/30/20 06:59 06:59 06:59 Intake Total 750 1060 Output Total 3000 Balance -2250 1060 Result Diagrams: 04/28/20 04:48 04/28/20 04:48 Additional Labs: Accuchecks 04/29/20 04/29/20 04/28/20 10:41 05:20 20:24 POC Glucose 235 H 158 H 181 H 04/28/20 16:12 POC Glucose 193 H Radiology Reviewed by me: Yes (Echo - EF 50-55%, mild LAE, mild MR) EKG Reviewed by me: Yes (Tele - N/A) Hospitalist ROS - Medication Medications: Active Medications Generic Name Dose Route Start Last Admin Trade Name Freq PRN Reason Stop Dose Admin Acetaminophen 650 mg 04/27/20 17:00 04/29/20 08:41 Tylenol PO 650 mg BID-WM ANDREA Administration Acetaminophen 650 mg 04/27/20 21:30 04/28/20 20:29 Tylenol PO 650 mg Q4H PRN Administration Headache/Fever/Mild Pain (1-3) Amlodipine Besylate 5 mg 04/28/20 09:00 04/29/20 08:41 Norvasc PO 5 mg DAILY ANDREA Administration Aspirin 81 mg 04/27/20 09:00 04/29/20 09:32 Ecotrin PO 81 mg DAILY ANDREA Administration Atorvastatin Calcium 40 mg 04/28/20 21:00 04/28/20 20:28 Lipitor PO 40 mg HS ANDREA Administration Carvedilol 6.25 mg 04/27/20 17:00 04/29/20 08:42 Coreg PO 6.25 mg BID-WM ANDREA Administration Famotidine 20 mg 04/28/20 09:00 04/29/20 08:40 Pepcid PO 20 mg DAILY ANDREA Administration Insulin Human Lispro 0 units 04/27/20 21:33 04/29/20 12:11 Humalog SC 3 unit .MILD SLIDING SCALE PRN Administration Mild Correctional Scale Insulin Human Lispro 0 units 04/27/20 21:33 04/27/20 22:29 Humalog SC 2 unit .BEDTIME SLIDING SC PRN Administration Bedtime Correctional Scale Labetalol HCl 10 mg 04/27/20 13:14 04/29/20 03:45 Normodyne SLOW IVP 2 ml Q4H PRN Administration Systolic BP > 180 Lidocaine 1 patch 04/27/20 22:00 04/28/20 20:29 Lidoderm 5% Patch TD 1 patch 2200 ANDREA Administration Miscellaneous Medication 1 each 04/27/20 10:00 04/29/20 08:42 Lidocaine Patch Removal TOP Not Given 1000 ANDREA Sodium Chloride 10 ml 04/27/20 21:32 04/27/20 21:39 Flush - Normal Saline IVF 10 ml Q12HR PRN Administration Saline Flush - Exam General Appearance: NAD, awake alert Eye: PERRL, anicteric sclera ENT: normocephalic atraumatic, no oropharyngeal lesions Neck: supple, symmetric, no JVD, no thyromegaly Heart: RRR, no murmur, no gallops, no rubs, normal peripheral pulses Heart - other findings: S1, S2 Respiratory: CTAB, no wheezes, no rales, no ronchi, normal chest expansion, no tachypnea Gastrointestinal: soft, non-tender, non-distended, normal bowel sounds, no palpable masses Extremities: no cyanosis, no clubbing, no edema Skin: normal turgor, no lesions Neurological - other findings: R facial droop, R hemiparesis, expressive dysphasia, dysphagia Psychiatric: A&O x 3, flat affect Hosp A/P (1) CVA (cerebral vascular accident) Code(s): I63.9 - CEREBRAL INFARCTION, UNSPECIFIED Status: Acute Qualifiers: Laterality of affected vessel: left Plan: L corpus striatum region, continue ASA/Lipitor, secondary preventative measures , Rehab screening (2) DM2 (diabetes mellitus, type 2) Status: Chronic Qualifiers: Diabetes mellitus chcf insulin use: with keno terminal operator use Diabetes mellitus complication status: with kidney complications Diabetes mellitus complication detail: with chronic kidney disease Chronic kidney disease stage : on chronic dialysis Qualified Code(s): E11.22 - Type 2 diabetes mellitus with diabetic chronic kidney disease; N18.6 - End stage renal disease; Z79.4 - terminal supervisor (current) use of insulin; Z99.2 - Dependence on renal dialysis Plan: ISS, ADA, serial accuchecks (3) ESRD (end stage renal disease) on dialysis Code(s): N18.6 - END STAGE RENAL DISEASE; Z99.2 - DEPENDENCE ON RENAL DIALYSIS Status: Chronic Plan: HD per Renal service (4) Essential hypertension Code(s): I10 - ESSENTIAL (PRIMARY) HYPERTENSION Status: Chronic - Plan plan discussed w/ family, PT/OT, social welfare research worker, speech therapy, out of bed/ ambulate, DVT proph w/SCDs Stable currently MBS +, continue modified diet CM for Rehab vs HH options Continue ASA/Lipitor Resume home BP regimen PT/OT for mobilization HD per Renal service Stroke education
[2020-04-29] MEDS ORDERED: HumuLIN 70/30 (300 UNITS/3 ML VIAL) SC SCH (21:00)
[2020-04-29] MEDS: Atorvastatin Calcium 40 MG TAB PO SCH (21:04)
[2020-04-29] MEDS: Lidocaine 5% Patch TD SCH (21:28)
[2020-04-30 05:28] VITALS: BMI 34.4
[2020-04-30 08:00] VITALS: TEMP 98.4
[2020-04-30] MEDS: Acetaminophen 325 MG TAB PO SCH (08:04)
[2020-04-30] MEDS: Amlodipine 5 MG TAB PO SCH (08:04)
[2020-04-30] MEDS: Famotidine 20 MG TAB PO SCH (08:04)
[2020-04-30] MEDS: Carvedilol 6.25 MG TAB PO SCH (08:04)
[2020-04-30] MEDS: Lidocaine Patch Removal 1 EACH TOP SCH (08:07)
[2020-04-30] MEDS: Aspirin 81 mg Enteric Coated Tablet PO SCH (08:21)
[2020-04-30] MEDS: HumaLOG 300 UNITS/3 ML VIAL SC PRN (10:39)
--- NOTE | 2020-04-30 12:24 | PRG ---
DATE OF SERVICE: 04/30/2020 SUBJECTIVE: Patient was seen and examined at bedside and overnight events noted. Patient denies any shortness of breath or chest pain or palpitation. No history of nausea or vomiting or diarrhea or fever or chills or cramps. OBJECTIVE: General: This is well-built male, in no apparent distress. Vital Signs: Temperature 98.4. Heart Rate 73. Respiratory rate 16. Blood pressure 182/89. HEENT: Atraumatic, normocephalic. Oral mucosa is moist. Neck: Supple. Cardiovascular: S1, S2 heard. Rate and rhythm regular. Respiratory: Clear to auscultation. Gastrointestinal: Abdomen is soft. Musculoskeletal: No tenderness. No edema. Dermatologic: No skin rash. Neurologic: Alert and awake and oriented x3. No focal neurologic deficits. Moving all the extremities. Psychiatric: Mood and affect normal. LABORATORY DATA: Not done today. ASSESSMENT AND PLAN: 1. End-stage renal disease. Continue dialysis. 2. . 3. Hypertension. 4. . Continue on dialysis as tolerated. Job ID: [id number]
[2020-04-30 12:31] VITALS: BP 199/97
--- NOTE | 2020-05-01 00:53 | DIS ---
DATE OF ADMISSION: 04/26/2020 DATE OF DISCHARGE: 04/30/2020 DISCHARGE DIAGNOSES: 1. Acute ischemic cerebrovascular accident involving the left corpus striatum. 2. Dysphagia secondary to #1. 3. Diabetes mellitus type 2, insulin requiring. 4. End-stage renal disease with hemodialysis. 5. Hypertension, labile. CONSULTATIONS: 1. Dr. Holland with Neurology Service. 2. Dr. Antonio with Nephrology Service. PERTINENT LABORATORY AND X-RAY FINDINGS: Creatinine ranged between 5.70 to 5.81. CBC showed a hemoglobin of 12.1, hematocrit 37. PT 15.0, INR 1.2, and PTT 30.8. COVID-19 PCR not detected, 04/27/2020. CT of the brain without contrast dated 04/26/2020, showed chronic ischemic white matter changes without acute hemorrhage. MRI of the brain dated 04/27/2020, showed acute lacunar infarct of the left corpus striatum and deep white matter. Tiny old lacunar infarct of contralateral right cerebral deep white matter. Portable chest x-ray dated 04/26/2020, showed no acute cardiopulmonary process. 2D transthoracic echocardiogram dated 04/27/2020, showed ejection fraction of 50% to 55%. Mild mitral and tricuspid regurgitation noted. Carotid Doppler study dated 04/27/2020, showed no hemodynamically significant stenosis. Modified barium swallow study dated 04/29/2020, showed episodes of penetration and aspiration. HOSPITAL COURSE: The patient initially presented with right facial droop and slurred speech concerning for acute CVA. Initial CT imaging of the brain showed no acute process. However, MRI imaging was able to define a left corpus striatum lacunar infarct. The patient was placed under general stroke protocol receiving aspirin and Lipitor. The patient was also titrated on his antihypertensive regimen and may need additional titration on an ongoing basis after discharge. The patient was evaluated by the Neurology Service with recommendations for aggressive secondary preventative measures including blood pressure and glycemic control. The patient initially with dysarthria and dysphagia, placed on a modified diet. The patient was upgraded to his current diet including extra sauce and gravy with small sips by cup. The patient was able to ambulate with standby assistance and initially was evaluated for potential inpatient rehabilitation. The patient continued to rapidly clinically improve and was deemed an appropriate candidate for outpatient physical and occupational therapy. The patient continued to receive maintenance hemodialysis throughout his hospital course, tolerating without difficulty. I have examined the patient at the time of discharge and discussed followup instructions. The patient verbalized understanding and agreement ready for discharge, 04/30/2020. DISCHARGE MEDICATIONS: 1. Amlodipine 10 mg p.o. daily. 2. Humulin 70/30, 10 units subcutaneously at bedtime. 3. Cozaar 50 mg p.o. daily. 4. Enteric-coated aspirin 81 mg p.o. daily. 5. Lipitor 40 mg p.o. at bedtime. 6. Coreg 6.25 mg p.o. b.i.d. FOLLOWUP: The patient may follow up with his primary care provider, Dr. Mercy Arrington, within 7 days of discharge. The patient may follow up with Dr. Dayday Lew with Nephrology Service. CONDITION ON DISCHARGE: Fair. ACTIVITY: Ad-devon. Standby assistance for ambulation. Rolling walker as needed. SPECIAL INSTRUCTIONS: The patient will have outpatient physical, occupational, and speech therapy after discharge. DIET: ADA heart healthy and renal. CODE STATUS: Full. DISPOSITION: Home, 04/30/2020. TIME SPENT: Total time preparing and coordinating discharge, 35 minutes. Job ID: [id number]
[2020-05-01 13:57] LABS: SARS-CoV-2 MS2 Positive; SARS-CoV-2 N Gene Negative; SARS-CoV-2 S Gene Negative; SARS-CoV-2 orf1ab Negative
== END 2020-04-30 11:20 | disposition home or self-care (01) | DRG 64 ==
LOC: ERS 16:43 → 2SE 18:23 → ERS 19:57
PROVIDERS: ADMIT Internal Medicine; ATTEND Internal Medicine
PROC: 5A1D70Z Performance of Urinary Filtration, Intermittent, Less than 6 Hours Per Day (ICD-10-PCS; principal; 2020-04-27)
DX: I63.81 Other cerebral infarction due to occlusion or stenosis of small artery (principal); N18.6 End stage renal disease; I12.0 Hypertensive chronic kidney disease with stage 5 chronic kidney disease or end stage renal disease; G81.91 Hemiplegia, unspecified affecting right dominant side; Z20.828 Contact with and (suspected) exposure to other viral communicable diseases; R29.810 Facial weakness; R47.81 Slurred speech; E11.22 Type 2 diabetes mellitus with diabetic chronic kidney disease; R13.10 Dysphagia, unspecified; D63.1 Anemia in chronic kidney disease; E66.9 Obesity, unspecified; E87.5 Hyperkalemia; E83.51 Hypocalcemia; I95.1 Orthostatic hypotension; R29.703 NIHSS score 3; R40.2362 Coma scale, best motor response, obeys commands, at arrival to emergency department; R40.2142 Coma scale, eyes open, spontaneous, at arrival to emergency department; R40.2252 Coma scale, best verbal response, oriented, at arrival to emergency department; Z68.32 Body mass index [BMI] 32.0-32.9, adult; Z79.899 Other long term (current) drug therapy; Z79.4 Long term (current) use of insulin; Z99.2 Dependence on renal dialysis
CPT/HCPCS: 36415; 36416; 70450; 70551; 71045; 74230; 80048; 80053; 82550; 84132; 84484; 85025; 85610; 85730; 87635; 90935; 93005; 93306; 93880; G0257; J1815; J2060; U0003

== ENCOUNTER 2020-04-30 12:47 | Outpatient (CLI) | payer BC, OTHER | END 2020-04-30 12:48 | disposition home or self-care (01) | LOC: LABBT 12:47 | PROVIDERS: ATTEND Specialist | DX: Z01.812 Encounter for preprocedural laboratory examination (principal); Z11.59 Encounter for screening for other viral diseases; N18.6 End stage renal disease | CPT/HCPCS: 87635; U0003 ==

== ENCOUNTER 2021-12-10 16:57 | Emergency (ER) | payer BC ==
[2021-12-10 17:48] LABS: #Basophils 0.1 thou/uL (0.0-0.2); #Eosinphils 0.2 thou/uL (0.0-0.7); #Lymphocytes 0.8 thou/uL (1.20-3.40); #Monocytes 0.6 thou/uL (0.11-0.59); #Neutrophils 3.5 thou/uL (1.40-6.50); %Basophils 1.1 % (0.0-1.0); %Eosinophils 3.2 % (0.0-10.0); %Lymphocytes 15.8 % (21.0-51.0); %Neutrophils 67.9 % (42.0-75.0); Hemoglobin 10.8 g/dL (14.0-18.0); Mean Corpuscular HGB CONC 31.9 g/dL (32.0-36.0); Mean Corpuscular Hemoglobin 31.3 pg (27.0-31.0); Mean Corpuscular Volume 98.4 fL (78.0-98.0); Mean Platelet Volume 8.1 fL (7.4-10.4); Platelet Count 158 thou/uL (130-400); RBC Distribution Width 13.7 % (11.5-14.5); Red Blood Cell (RBC) Count 3.44 mill/uL (4.70-6.10); White Blood Cell (WBC) Count 5.1 thou/uL (4.8-10.8)
[2021-12-10 18:09] LABS: ALT (SGPT) 16 U/L (8-55); AST (SGOT) 17 U/L (5-34); Albumin 4.1 g/dL (3.5-5.0); Alkaline Phosphatase 98 U/L (40-110); Anion Gap 20 mmol/L (10-20); BUN (Urea Nitrogen) 66 mg/dL (8.9-20.6); Bilirubin, Total 0.6 mg/dL (0.2-1.2); Calc. Creatinine Clearance 0 mL/min (70-130); Calcium 8.4 mg/dL (7.8-10.44); Carbon Dioxide 28 mmol/L (22-29); Chloride 100 mmol/L (98-107); Globulin 2.6 g/dL (2.4-3.5); Glucose 94 mg/dL (70-105); Potassium 5.9 mmol/L (3.5-5.1); Protein, Total 6.7 g/dL (6.0-8.3); Sodium 142 mmol/L (136-145)
[2021-12-10 18:32] LABS: CKMB 2.4 ng/mL (0-6.6)
[2021-12-10 20:35] LABS: Bacteria/HPF None Seen HPF (None Seen); Bilirubin Negative (Negative); Blood, Urine Trace (Negative); Clarity Clear (Clear); Glucose, Urine (Dipstick) 100 mg/dL (Negative); Ketone, Urine Negative (Negative); Leukocyte 75 Leu/uL (Negative); Nitrite Negative (Negative); Protein, Urine (Dipstick) 300 mg/dL (Neg-Trace); RBC/HPF 0-3 HPF (0-3); Specific Gravity, Urine 1.011 (1.002-1.036); Sperm/HPF 3+ HPF (None Seen); Squamous Epithelial None Seen HPF (0-3); Urobilinogen Normal mg/dL (Less than 2); pH, Urine 8.5 (5.0-9.0)
[2021-12-11 02:16] LABS: HBSAg Index 0.64 S/CO (0-0.99); Hep B Surf Ag Non-Reactive S/CO (NonReactive)
== END 2021-12-11 04:12 | disposition home or self-care (01) ==
LOC: ERS 16:57
DX: E87.5 Hyperkalemia (principal); E87.70 Fluid overload, unspecified; E11.9 Type 2 diabetes mellitus without complications; I10 Essential (primary) hypertension
CPT/HCPCS: 36415; 71045; 80053; 81003; 81015; 82553; 83880; 84484; 85025; 87340; 90935; 93005; G0257

== ENCOUNTER 2022-03-22 13:23 | Emergency (ER) | payer BC ==
[2022-03-22 14:07] LABS: #Eosinphils 0.1 thou/uL (0.0-0.7); #Lymphocytes 0.5 thou/uL (1.20-3.40); #Monocytes 0.4 thou/uL (0.11-0.59); #Neutrophils 3.1 thou/uL (1.40-6.50); %Eosinophils 2.3 % (0.0-10.0); %Lymphocytes 11.1 % (21.0-51.0); %Monocytes 10.4 % (0.0-10.0); %Neutrophils 75.1 % (42.0-75.0); Hemoglobin 10.6 g/dL (14.0-18.0); Mean Corpuscular HGB CONC 32.4 g/dL (32.0-36.0); Mean Corpuscular Volume 98.7 fL (78.0-98.0); Mean Platelet Volume 7.8 fL (7.4-10.4); Platelet Count 157 thou/uL (130-400); RBC Distribution Width 14.3 % (11.5-14.5); Red Blood Cell (RBC) Count 3.31 mill/uL (4.70-6.10); White Blood Cell (WBC) Count 4.1 thou/uL (4.8-10.8)
[2022-03-22 14:30] LABS: ALT (SGPT) 13 U/L (8-55); AST (SGOT) 16 U/L (5-34); Albumin 4.2 g/dL (3.5-5.0); Alkaline Phosphatase 75 U/L (40-110); Anion Gap 18 mmol/L (10-20); BUN (Urea Nitrogen) 40 mg/dL (8.9-20.6); Bilirubin, Total 0.9 mg/dL (0.2-1.2); CK (CPK) 127 U/L (30-200); Calc. Creatinine Clearance 0 mL/min (70-130); Calcium 8.7 mg/dL (7.8-10.44); Carbon Dioxide 30 mmol/L (22-29); Chloride 97 mmol/L (98-107); Globulin 2.8 g/dL (2.4-3.5); Glucose 145 mg/dL (70-105); Magnesium 2.1 mg/dL (1.6-2.6); Potassium 4.8 mmol/L (3.5-5.1); Sodium 140 mmol/L (136-145)
[2022-03-22 18:21] LABS: HBSAg Index 0.23 S/CO (0-0.99); Hep B Surf Ag Non-Reactive S/CO (NonReactive)
[2022-03-22 19:23] LABS: HBSAB Concentration 20829.11 mIU/mL; Hep B Surf AB Reactive (NonReactive)
== END 2022-03-22 23:16 | disposition home or self-care (01) ==
LOC: ERS 13:23
DX: E11.319 Type 2 diabetes mellitus with unspecified diabetic retinopathy without macular edema (principal); H35.62 Retinal hemorrhage, left eye; I12.0 Hypertensive chronic kidney disease with stage 5 chronic kidney disease or end stage renal disease; E11.22 Type 2 diabetes mellitus with diabetic chronic kidney disease; N18.6 End stage renal disease; Z79.899 Other long term (current) drug therapy; Z99.2 Dependence on renal dialysis
CPT/HCPCS: 70450; 71045; 80053; 82550; 83605; 83735; 84484; 85025; 86706; 87340; 90935; 93005; G0257

== ENCOUNTER 2022-03-29 09:50 | Emergency (ER) | payer BC ==
[2022-03-29 11:06] LABS: #Eosinphils 0.1 thou/uL (0.0-0.7); #Lymphocytes 0.5 thou/uL (1.20-3.40); #Monocytes 0.6 thou/uL (0.11-0.59); #Neutrophils 3.9 thou/uL (1.40-6.50); %Basophils 0.7 % (0.0-1.0); %Eosinophils 2.3 % (0.0-10.0); %Lymphocytes 9.3 % (21.0-51.0); %Monocytes 11.1 % (0.0-10.0); %Neutrophils 76.5 % (42.0-75.0); Hemoglobin 11.1 g/dL (14.0-18.0); Mean Corpuscular HGB CONC 32.2 g/dL (32.0-36.0); Mean Corpuscular Hemoglobin 32.1 pg (27.0-31.0); Mean Corpuscular Volume 99.6 fL (78.0-98.0); Mean Platelet Volume 7.7 fL (7.4-10.4); Platelet Count 162 thou/uL (130-400); Red Blood Cell (RBC) Count 3.46 mill/uL (4.70-6.10); White Blood Cell (WBC) Count 5.1 thou/uL (4.8-10.8)
[2022-03-29 11:24] LABS: ALT (SGPT) 10 U/L (8-55); AST (SGOT) 15 U/L (5-34); Albumin 4.2 g/dL (3.5-5.0); Alkaline Phosphatase 99 U/L (40-110); Anion Gap 16 mmol/L (10-20); BUN (Urea Nitrogen) 36 mg/dL (8.9-20.6); Calc. Creatinine Clearance 0 mL/min (70-130); Calcium 8.8 mg/dL (7.8-10.44); Carbon Dioxide 30 mmol/L (22-29); Chloride 99 mmol/L (98-107); Globulin 2.9 g/dL (2.4-3.5); Glucose 121 mg/dL (70-105); Potassium 5.4 mmol/L (3.5-5.1); Protein, Total 7.1 g/dL (6.0-8.3); Sodium 140 mmol/L (136-145)
== END 2022-03-29 11:44 | disposition home or self-care (01) ==
LOC: ERS 09:50
DX: E11.319 Type 2 diabetes mellitus with unspecified diabetic retinopathy without macular edema (principal); I10 Essential (primary) hypertension; Z79.899 Other long term (current) drug therapy
CPT/HCPCS: 36415; 80053; 85025; 93005

== ENCOUNTER 2022-07-31 12:53 | Emergency (ER) | payer BC | END 2022-07-31 15:07 | disposition home or self-care (01) | LOC: ERS 12:53 | DX: S22.41XA Multiple fractures of ribs, right side, initial encounter for closed fracture (principal); I10 Essential (primary) hypertension; E11.9 Type 2 diabetes mellitus without complications; W18.2XXA Fall in (into) shower or empty bathtub, initial encounter; Z99.2 Dependence on renal dialysis; Z79.899 Other long term (current) drug therapy ==

== ENCOUNTER 2023-07-14 18:42 | Emergency (ER) | payer BC ==
[2023-07-14] MEDS ORDERED: LORazepam 2 MG/ML SYR.(CARPUJECT) ONE (18:50)
[2023-07-14] MEDS ORDERED: Rocuronium Bromide 10 MG/ML (10ML VIAL) ONE (18:51)
[2023-07-14] MEDS ORDERED: dilTIAZem 125 MG/25 ML SDV ONE (18:57)
[2023-07-14] MEDS ORDERED: Propofol 1,000 MG/100 ML VIAL IV ONE ×2 (18:57→22:24)
[2023-07-14] MEDS ORDERED: niCARdipine 25 MG/10 ML SDV ONE ×3 (18:57→22:21)
[2023-07-14 18:58] LABS: #Basophils 0.1 thou/uL (0.0-0.2); #Eosinphils 0.2 thou/uL (0.0-0.7); #Monocytes 0.7 thou/uL (0.11-0.59); #Neutrophils 5.2 thou/uL (1.40-6.50); %Basophils 0.7 % (0.0-1.0); %Eosinophils 2.2 % (0.0-10.0); %Lymphocytes 17.5 % (21.0-51.0); %Monocytes 8.9 % (0.0-10.0); %Neutrophils 70.4 % (42.0-75.0); Hematocrit 44.6 % (42.0-52.0); Hemoglobin 14.1 g/dL (14.0-18.0); Mean Corpuscular HGB CONC 31.6 g/dL (32.0-36.0); Mean Corpuscular Hemoglobin 30.5 pg (27.0-31.0); Mean Corpuscular Volume 96.3 fl (78.0-98.0); Mean Platelet Volume 10.3 fL (7.4-10.4); Platelet Count 198 10x3/uL (130-400); RBC Distribution Width 13.5 % (11.5-14.5); Red Blood Cell (RBC) Count 4.63 mill/uL (4.70-6.10); White Blood Cell (WBC) Count 7.4 10x3/uL (4.8-10.8)
[2023-07-14] MEDS ORDERED: Labetalol HCl 100 MG/20 ML VIAL ONE (18:58)
[2023-07-14 19:21] LABS: PTT 39.3 sec (22.9-36.1); Prothrombin Time 16.7 sec (12.0-14.7)
[2023-07-14 19:22] LABS: INR-International Normal Ratio 1.3
[2023-07-14 19:28] LABS: Troponin I 0.042 ng/mL (< 0.028)
[2023-07-14 19:29] LABS: Actual Bicarbonate (HCO3a) 22.9 mEq/L (22-28); Analyzer IN Cardio ER; CO2 Tension 35.8 mmHg (35.0-45.0); Calcium, Ionized (arterial) 1.05 mmol/L (1.12-1.30); Carboxyhemoglobin (COHb) 0.1 gm% (0.0-3.0); Hematocrit-ABG 38 % (42.0-52.0); Hemoglobin (Hb) 12.8 g/dL (14.0-18.0); O2 Tension (PaO2), arterial 473.3 mmHg (80.0-100.0); Potassium - ABG Lab 4.82 mmol/L (3.70-5.30); pH, Arterial 7.424 (7.35-7.45)
[2023-07-14 19:30] LABS: Puncture Site RR
[2023-07-14 19:31] LABS: ALT (SGPT) 15 U/L (8-55); AST (SGOT) 20 U/L (5-34); Alkaline Phosphatase 128 U/L (40-110); Anion Gap 23 mmol/L (10-20); BUN (Urea Nitrogen) 63 mg/dL (8.9-20.6); Bilirubin, Total 0.7 mg/dL (0.2-1.2); CK (CPK) 233 U/L (30-200); Calc. Creatinine Clearance 0 mL/min (70-130); Calcium 10.7 mg/dL (7.8-10.44); Carbon Dioxide 26 mmol/L (22-29); Chloride 102 mmol/L (98-107); Estimated GFR 7; Globulin 3.4 g/dL (2.4-3.5); Glucose 106 mg/dL (70-105); Lipase 70 U/L (8-78); Protein, Total 8.4 g/dL (6.0-8.3); Sodium 145 mmol/L (136-145)
[2023-07-14 19:36] LABS: Potassium 6.2 mmol/L (3.5-5.1)
[2023-07-14] MEDS ORDERED: Insulin Regular 300 UNITS/3 ML VIAL ONE (19:58)
[2023-07-14] MEDS ORDERED: Dextrose 50% Abboject 50 ML SYRINGE ONE (19:58)
[2023-07-14] MEDS ORDERED: HumaLOG 300 UNITS/3 ML VIAL ONE (19:59)
[2023-07-14 20:29] LABS: Bacteria/HPF None Seen HPF (None Seen); Bilirubin Negative (Negative); Blood, Urine Trace (Negative); CAUTI Indications for Culture Alt mental st,lethar; Clarity Turbid (Clear); Glucose, Urine (Dipstick) 200 mg/dL (Negative); Ketone, Urine Negative (Negative); Leukocyte Negative Leu/uL (Negative); Nitrite Negative (Negative); Protein, Urine (Dipstick) 300 mg/dL (Neg-Trace); RBC/HPF 0-3 HPF (0-3); Squamous Epithelial 0-3 HPF (0-3); Urobilinogen Normal mg/dL (Less than 2); pH, Urine 8.5 (5.0-9.0)
[2023-07-14 20:31] LABS: Sperm/HPF 2+ HPF (None Seen)
[2023-07-14 20:32] LABS: Urine Culture Reflex No No
[2023-07-14 20:35] LABS: Amphetamine Not Detected (NotDetected); Barbiturates Screen Not Detected (NotDetected); Benzodiazepine Screen Not Detected (NotDetected); Cocaine Metabolite Screen Not Detected (NotDetected); Methadone Not Detected (NotDetected); Methamphetamine Not Detected (NotDetected); Opiate Screen Not Detected (NotDetected); Oxycodone Screen Not Detected (NotDetected); Phencyclidine (PCP) Not Detected (NotDetected); THC/Cannabinoid Screen Not Detected (NotDetected); Tricyclic Screen Not Detected (NotDetected)
[2023-07-14 21:58] LABS: Lactic Acid 1.9 mmol/L (0.5-2.2)
== END 2023-07-14 22:42 | disposition short-term general hospital (02) ==
LOC: ERS 18:42
DX: I62.9 Nontraumatic intracranial hemorrhage, unspecified (principal); E87.5 Hyperkalemia; I16.0 Hypertensive urgency; E11.9 Type 2 diabetes mellitus without complications; I10 Essential (primary) hypertension; Z79.899 Other long term (current) drug therapy; Z79.82 Long term (current) use of aspirin
CPT/HCPCS: 31500; 36415; 51702; 70450; 71045; 80053; 80306; 81001; 82550; 82805; 83605; 83690; 84484; 85025; 85610; 85730; 93005; 94002; 96365; 96366; 96375; J1815; J2060; J2704; J7999